=== PATIENT | male | born 1960 | race Caucasian/White ===

== ENCOUNTER 2017-10-30 12:21 | Inpatient (IN) | payer SELFPAY ==
[~2017-10-30 12:21] MED LIST: Heparin 1,000 UNITS/ML VIAL ONE
[2017-10-30 12:51] LABS: Base Excess-Venous -12.1 mmol/L (0 (+/- 2.5)); Bicarbonate (HCO3v) 15.3 mmol/L (1.0-85.0); CO2 Tension (PvCO2) 39.2 mmHg (41.0-51.0); Calcium, Ionized 0.69 mmol/L (1.12-1.32); Hemoglobin - Calc 12.4 g/dL (12.0-18.0); O2 Tension (PvO2) 50.7 mmHg (35.0-45.0); Potassium 5.6 mmol/L (3.4-4.7); T. Carbon Dioxide 16.5 mmol/L (1.0-85.0); pH (Venous) 7.198 (7.35-7.45); vO2 Saturation-calc 77.1 % (94-98)
[2017-10-30] MEDS ORDERED: Calcium Chloride 1 GM/10 ML Abboject SYRINGE ONE (12:56)
[2017-10-30 13:11] LABS: Hemoglobin 11.7 g/dL (14.0-18.0); Mean Corpuscular HGB CONC 33.1 g/dL (32.0-36.0); Mean Corpuscular Hemoglobin 31.1 pg (27.0-31.0); Mean Corpuscular Volume 94.1 fL (78.0-98.0); Mean Platelet Volume 6.8 fL (7.4-10.4); Platelet Count 349 thou/uL (130-400); Red Blood Cell (RBC) Count 3.75 mill/uL (4.70-6.10); White Blood Cell (WBC) Count 33.6 thou/uL (4.8-10.8)
[2017-10-30] MEDS ORDERED: Gentamicin Sulfate 360 MG in Sodium Chloride 0.9% 100 ML IVPB ONE (13:15)
[2017-10-30 13:24] LABS: ALT (SGPT) 107 U/L (8-55); AST (SGOT) 176 U/L (5-34); Albumin 3.1 g/dL (3.5-5.0); Alkaline Phosphatase 112 U/L (40-150); Anion Gap 29 mmol/L (10-20); BUN (Urea Nitrogen) 105 mg/dL (8.4-25.7); Bilirubin, Total 0.5 mg/dL (0.2-1.2); Calc. Creatinine Clearance 0 mL/min (70-130); Calcium 6.8 mg/dL (7.8-10.44); Carbon Dioxide 16 mmol/L (22-29); Chloride 104 mmol/L (98-107); Estimated GFR-MDRD 5; Globulin 3.5 g/dL (2.4-3.5); Glucose 76 mg/dL (70-105); Protein, Total 6.6 g/dL (6.0-8.3); Sodium 143 mmol/L (136-145)
[2017-10-30] MEDS ORDERED: cefTRIAXone\\ROCEPHIN 2 GM VIAL ONE (13:29)
[2017-10-30 13:39] LABS: Band 28 % (5-11); Lymphocytes 1 % (21-51); MDiff Complete? YES; Monocytes 4 % (0-10); Neutrophil 67 % (42-75); PLT Morphology Comment Appears Adequate
[2017-10-30 13:50] LABS: CK (CPK) 9286 U/L (30-200)
--- NOTE | 2017-10-30 14:03 | CON ---
DATE OF CONSULTATION: 10/30/2017 NEPHROLOGY CONSULTATION REASON FOR CONSULTATION: Hyperkalemia. HISTORY OF PRESENT ILLNESS: This is a 57-year-old gentleman who cannot give any history who presente d to the ER for altered mentation. The patient was noted to have potassium of 6.8 and I was consulte d, this was done at outside lab. The patient denies known headache, numbness, tingling, and weakness . Denies any chest pain. PAST MEDICAL HISTORY: Unavailable. ALLERGIES: No known drug allergies. REVIEW OF SYSTEMS: Unobtainable. PHYSICAL EXAMINATION: GENERAL: Patient is resting. VITAL SIGNS: Afebrile, pulse 100, breathing at 16, blood pressure 91/50. HEAD: Headache- NECK: No swelling or lumps. NOSE: No epistaxis or discharge. EYES: No diplopia or pain. RESPIRATORY: Dyspnea- CARDIOVASCULAR: Chest pain- GASTROINTESTINAL: Nausea- /INTERNAL CONTROL MANAGER: Hematuria- MUSCULOSKELETAL: No joint pain. NEUROPSYCHIATIC SYSTEMS: The patient has altered mentation. SKIN: Denies any rash or ulcer. CONSTITUTIONAL: No fever or chills. LABORATORY DATA: Pending. ASSESSMENT AND PLAN: 1. Acute kidney injury with hyperkalemia. We will plan dialysis. 2. Anemia. 3. History of methamphetamine as well as opiate abuse. Overall, prognosis is poor. 4. Sepsis. 5. Hypertension.
[2017-10-30 14:45] LABS: Troponin I 0.027 ng/mL (< 0.028)
[2017-10-30] MEDS ORDERED: Vancomycin HCl 1 GM in Premix Bag 1 BAG IVPB SCH (15:00)
--- NOTE | 2017-10-30 15:21 | CT ---
CT OF THE BRAIN WITHOUT CONTRAST: Date: 10/30/17 INDICATION: History of acute renal failure and altered mental status. COMPARISON: None. IMPRESSION: No acute intracranial abnormality. COMMENTS: No acute infarct, hemorrhage, or hydrocephalus is present. Septum pellucidum and third ventricle are midline. There is a small mucus retention cyst within the inferior aspect of the right maxillary sinu s. Mastoid air cells are clear. Skull is intact. POS: JASMYNE
[2017-10-30] MEDS ORDERED: Lorazepam 2 MG/ML VIAL ONE (15:31)
[2017-10-30 15:39] LABS: HBSAB Concentration 0.49 mIU/mL; HBSAg Index 0.29 S/CO (0-0.99); Hep B Core Total Ab Non-Reactive (NonReactive); Hep B Core Total Index 0.09 S/CO (0-0.79); Hep B Surf AB Non-Reactive (NonReactive); Hep B Surf Ag Non-Reactive S/CO (NonReactive)
[2017-10-30] MEDS: Haloperidol Lactate 5 MG/ML VIAL ONE (15:46)
[2017-10-30] MEDS ORDERED: Haloperidol Lactate 5 MG/ML VIAL IM SCH (16:00)
[2017-10-30] MEDS ORDERED: Lorazepam 2 MG/ML VIAL SLOW IVP SCH (16:00)
[2017-10-30] MEDS ORDERED: Haloperidol Lactate 5 MG/ML VIAL SLOW IVP SCH (16:00)
[2017-10-30 16:17] LABS: Hep C IgG Ab Reflex HepC Qnt (NonReactive)
[2017-10-30 16:18] LABS: Hep C Index 13.17 S/CO (0-0.79)
[2017-10-30] MEDS ORDERED: Sodium Chloride 0.9% 1,000 ML IV SCH ×2 (16:30→16:37)
[2017-10-30 16:39] LABS: INR-International Normal Ratio 1.3; PTT 40.4 SEC (22.9-36.1); Prothrombin Time 16.5 SEC (12.0-14.7)
[2017-10-30] MEDS: Nicotine 14 MG PATCH TD SCH (16:54)
[2017-10-30] MEDS: Sodium Chloride 0.9% 1,000 ML IV SCH ×3 (16:56→22:29)
--- NOTE | 2017-10-30 18:08 | PRG ---
DATE OF SERVICE: 10/30/2017 SUBJECTIVE: Mr. Canchola was evaluated again. He is comfortable now after Haldol and Ativan. I had a long discussion with his girlfriend. She is not aware of any drug use except Tylenol #3 which would account for the opiates reported on his drug screen. She says he has never used amphetamines and methamphetamines as far as she knows. She says he is only drinking 2 beers a day, but for the last 3 days has been confused. He has a history of being an extremely heavy drinker in the past. I would wonder if some of this is hepatic encephalopathy. He obviously has some rhabdomyolysis with this with some mild elevated liver enzymes. I suspect his creatinine will improve with hydration. We will check ammonia level and continue to care for him. He is currently being dialyzed. Critical care time is minutes. [facility]
[2017-10-30] MEDS ORDERED: Haloperidol Lactate 5 MG/ML VIAL IM PRN (18:10)
--- NOTE | 2017-10-30 18:36 | PDOC.FPRHP ---
- History of Present Illness Chief Complaint: found down, AMS History of Present Illness: Patient is a 57YOM with a PMH significant for HTN, EtOH abuse, and polysubstance abuse who was a transfer from the [place] ED after being found down in his home covered in diarrhea. ED Course: Given 2g of rocephin, 1 amp of calcium gluconate & 1L of NS. Nephro & gen surg were also consulted for emergency dialysis via temporary dialysis catheter. - Allergies/Adverse Reactions Allergies Allergy/AdvReac Type Severity Reaction Status Date / Time No Known Allergies Allergy Unverified 10/30/17 12:56 - Home Medications Medication Instructions Recorded Confirmed Type Acetaminophen W/ Codeine [Tylenol 1 tab PO Q6HR PRN 10/30/17 10/30/17 History #3] Gabapentin [Neurontin] 300 mg PO TID 10/30/17 10/30/17 History Ibuprofen [Motrin] 800 mg PO TID PRN 10/30/17 10/30/17 History Lisinopril 10 mg PO DAILY 10/30/17 10/30/17 History Omeprazole 20 mg PO DAILY 10/30/17 10/30/17 History - History PMHx: HTN, GERD PSHx: Unable to obtain 2/2 patient's AMS. FHx: Unable to obtain 2/2 patient's AMS. Social: h/o EtOH and polysubstance abuse per Dr. Avery per patient's family h/o tobacco abuse per chart review - Review of Systems ROS unobtainable: due to mental status - Vital signs BP: 80/63 HR: 95 RR: 22 Tmax: 98.5F Pox: 97% on RA Wt: 63kg - Physical Exam Constitutional: NAD, other (Awake but oriented to person only.) HEENT: normocephalic and atraumatic, PERRLA, EOMI, conjunctiva clear, grossly normal vision, grossly normal hearing, other (Poor dentition, dry mucous membranes, orpharynx significant for postnasal mucus/phlegm. No erythema or exudates.) Neck: FROM, trachea midline, no JVD Heart: RRR, normal S1/S2, no edema Lungs: CTAB, no respiratory distress, no rales/rhonchi, no wheezing Abdomen: soft, non-tender, bowel sounds present Musculoskeletal: normal structure, ROM grossly normal Neurological: no focal deficit, CN II-XII intact Skin: other (Poor turgor, no visible rash. Erythema overlying B/L knees.) Psychiatric: other (Psychomotor agitation during exam. Followed commands but did not always respond appropropriately to questioning. Poor recent and remote memory. Poor insight and judgement.) FMR H&P: Results - Labs Result Diagrams: 10/30/17 18:55 10/30/17 18:55 Lab results: WBC 33.6 thou/uL (4.8-10.8) H 10/30/17 12:51 Hgb 11.7 g/dL (14.0-18.0) L 10/30/17 12:51 Hct 35.3 % (42.0-52.0) L 10/30/17 12:51 MCV 94.1 fL (78.0-98.0) 10/30/17 12:51 Plt Count 349 thou/uL (130-400) 10/30/17 12:51 Band Neuts % (Manual) 28 % (5-11) H 10/30/17 12:51 VBG pCO2 39.2 mmHg (41.0-51.0) L 10/30/17 12:48 VBG pO2 50.7 mmHg (35.0-45.0) H 10/30/17 12:48 Sodium 143 mmol/L (136-145) 10/30/17 12:51 Potassium 6.0 mmol/L (3.5-5.1) H 10/30/17 12:51 Chloride 104 mmol/L (98-107) 10/30/17 12:51 Carbon Dioxide 16 mmol/L (22-29) L 10/30/17 12:51 BUN 105 mg/dL (8.4-25.7) H 10/30/17 12:51 Creatinine 11.60 mg/dL (0.6-1.3) H 10/30/17 12:51 Glucose 76 mg/dL (70-105) 10/30/17 12:51 Lactic Acid 0.9 mmol/L (0.5-2.2) 10/30/17 12:51 Calcium 6.8 mg/dL (7.8-10.44) L 10/30/17 12:51 Total Bilirubin 0.5 mg/dL (0.2-1.2) 10/30/17 12:51 AST 176 U/L (5-34) H 10/30/17 12:51 ALT 107 U/L (8-55) H 10/30/17 12:51 Alkaline Phosphatase 112 U/L (40-150) 10/30/17 12:51 Ammonia 34 umol/L (18-72) 10/30/17 17:52 Creatine Kinase 9286 U/L (30-200) H 10/30/17 12:51 Serum Total Protein 6.6 g/dL (6.0-8.3) 10/30/17 12:51 Albumin 3.1 g/dL (3.5-5.0) L 10/30/17 12:51 - Radiology Interpretation CT scan - head Status: image reviewed by me, report reviewed by me Additional comment: No acute IC process. FMR H&P: A/P - Problem List (1) Toxic metabolic encephalopathy Current Visit: Yes Status: Acute Code(s): G92 - TOXIC ENCEPHALOPATHY (2) Volume depletion Current Visit: Yes Status: Acute Priority: High Code(s): E86.9 - VOLUME DEPLETION, UNSPECIFIED (3) Rhabdomyolysis Current Visit: Yes Status: Acute Code(s): M62.82 - RHABDOMYOLYSIS (4) Acute renal failure Current Visit: Yes Status: Acute (5) Elevated LFTs Current Visit: Yes Status: Acute Code(s): R94.5 - ABNORMAL RESULTS OF LIVER FUNCTION STUDIES (6) History of alcohol abuse Current Visit: Yes Status: Chronic Code(s): Z87.898 - PERSONAL HISTORY OF OTHER SPECIFIED CONDITIONS (7) GERD (gastroesophageal reflux disease) Current Visit: Yes Status: Chronic Code(s): K21.9 - GASTRO-ESOPHAGEAL REFLUX DISEASE WITHOUT ESOPHAGITIS (8) HTN (hypertension) Current Visit: Yes Status: Chronic Code(s): I10 - ESSENTIAL (PRIMARY) HYPERTENSION (9) High anion gap metabolic acidosis Current Visit: Yes Status: Acute Code(s): E87.2 - ACIDOSIS (10) Leukocytosis Current Visit: Yes Status: Acute Code(s): D72.829 - ELEVATED WHITE BLOOD CELL COUNT, UNSPECIFIED (11) Anemia Current Visit: Yes Status: Acute Code(s): D64.9 - ANEMIA, UNSPECIFIED (12) Thrombocytopenia Current Visit: Yes Status: Acute Code(s): D69.6 - THROMBOCYTOPENIA, UNSPECIFIED (13) Hyperkalemia Current Visit: Yes Status: Acute Code(s): E87.5 - HYPERKALEMIA - Plan 57YOM w/ PMH significant for h/o ETOH & polysubstance abuse who was found down at home w/ AMS who was transferred from an outside ED after being found to be encephalopathic w/ ARF, presumed sepsis 2/2 UTI, & hyperkalemia. 1. Toxic metabolic encephalopathy: - Possibly 2/2 polysubstance overdose vs. uremia from acute renal failure vs. severe dehydration vs. sepsis from UTI - Ammonia 34 & BUN/Cr 105/11 upon arrival. K also elevated at 6.0. - Nephro and gen surg consulted in ED so patient could undergo emergency HD 2/2 ARF and EKG changes 2/2 hyperkalemia. - Hypovolemic w/ CK of 9286. - Aggressive fluid hydration started as patient is s/p 3L NS boluses and on MIVFs of NS at 200 ml/hr per turner off. Will continue. - Low suspicion for sepsis despite elevated WBC as lactate was WNL & patient has been afebrile since presentation. Procalcitonin pending. However, UA was + for 4+ bacteria. Will therefore continue renally dosed IV Zosyn. Blood & urine Cxs pending. CXR also pending. - UDS positive for opiates, meth, and amphetamines. - Alcohol level pending to r/o acute EtOH intoxication in conjunction with other substances. - Head CT w/o contrast ordered to r/o any IC process to explain AMS. - Currently sedated with precedex and haldol per pulmonlogy. - NPO pending speech evaluation and clearance. 2. Acute renal failure - BUN /Cr 105/11 on presentation to our ED. Higher in [place]. - Patient was given 3Ls NS. - Plan was for urgent dialysis per nephrology; however, patient was dialyzed for just 45 minutes as CK of 9286 suggestive of rhabdo likely 2/2 severe volume depletion. - Will continue with aggressive IVF hydration with NS at 200 mL/hr. - Will continue to trend CK & CMPs. - Nephrology on board; appreciate recs. 3. Rhabdomyolysis - CK of 9,286 on admission. Is therefore most likely source contributing to renal failure. - Will continue with aggressive IVFs as outlined above. - Will continue to trend CK to evaluate for improvement/resolution. 4. Severe volume depletion - Unsure how long patient was down. Per family, patient had not eaten or drank in the last 3 days. - Rhabdomyolysis supportive of extended period of decreased PO intake. - Will continue w/ aggressive IVF volume resuscitation as outlined above. - Will continue w/ QD BMPs & CKs to monitor hydration status. - Will monitor urine output as well. 5. AGMA - Likely 2/2 ARF as improved after IVFs were given. - Not likely 2/2 infection as lactate was WNL. - EtOH level pending to r/o acute EtOH intoxication as a potential source. - Will continue to follow QD CMPs. 6. Hyperkalemia: - Patient s/p 1 amp calcium bicarb & 45 minutes of HD. Also receiving aggressive IVF volume resuscitation. - K down to 6 from 6.8 at outside ED upon presentation. - Will continue to trend w/ BMPs. 7. Hx of EtOH abuse - EtOH levels pending. - IV Thiamine started by turner off, will continue. - ASE protocol ordered. - IV lorazepam ordered PRN. 8. Elevated LFTs - Hep C Ab positive. Hep C quant pending. - Therefore could be 2/2 Hep C vs. shock liver from severe volume depletion vs. h/o alcohol abuse. - Consider RUQ u/s for further evaluation as well as HIV & RPR testing. - Will get repeat AM CMP. 9. Leukocytosis - Could be 2/2 infection/sepsis vs. leukemoid reaction from stress of severe volume depletion. - Patient receiving IV zosyn to cover for possible infectious source (UTI). - CXR & procalcitonin pending. Lactate WNL. - WBC decreased to 24 from 33 since receiving IVFs. 10. Thrombocytopenia - Likely 2/2 chronic liver disease from hep C and/or EtOH abuse. - Will continue to monitor w/ QD CBCs. 11. Normocytic anemia - Likely anemia of chronic disease 2/2 liver disease. - Will continue to follow w/ QD CBCs. - Iron studies pending. - Consider B12 & folate levels as well to complete anemia workup. 12. HTN: - Holding antihypertensives as patient has been hypotensive since admission. - Will continue to monitor. 13. GERD: - Will consider starting on GI PPx with protonix. Dispo: Stable. Not currently intubated, but sedated on precedex and haldol for agitation. Marketing Administrative Assistant/pulmonolgy on board. DVT PPx: SCDs IVFs: NS @ 200mL/hr Abx: 2.25g IV zosyn Q8H (renally dosed) FMR H&P: Upper Level - Pertinent history 57 year old male with unknown PMH that presents with AMS. Patient was reportedly found down covered in diarrhea. Difficult to ascertain details leading up to event as patient is encephalopathic and unable to answer questions appropriately. Patient reportedly has history of chronic pain on opiates, alcohol abuse, GERD, and HTN. Patient was transferred from [place] ED where he was fluid resuscitated with 2L of NS and found to be in ARF. He was given Zosyn 3.375 mg, Vancomycin 1g, Gentamicin 5 mg/kg for presumed septic shock. He was also given sodium bicarb 50 meq, Calcium gluconate, D50 and insulin 10U due to potassium of 6.8 and peaked t waves on EKG at outside ED. Nephrology was consulted in the ED and plans were made for urgent dialysis. General surgery was consulted for catheter placement. ROS: Unable to obtain d/t mental status - Pertinent findings VS: BP 80/63, HR 93, RR 22, Temp 98.5 F, O2 sat 97% on RA General: Oriented to person only. Does not appear to be in any obvious distress at time of exam HEENT: Dry mucous membranes, no pharyngeal erythema, but some notable yellow, small, circular lesions on uvula and pharynx. Card: RRR Resp: No acute respiratory distress. Lung clear to auscultation Abdomen: Bowel sounds present, Non-tender to palpation Skin: Maculopapular rash on abdomen Neuro: Alert, oriented to person. No focal deficits. - Plan Date/Time: 10/30/17 101 I, [Celestina Mccloud DO], have evaluated this patient and agree with findings/ plan as outlined by internal wholesaler resident. Pertinent changes/additions are listed here. A/P: 57 year old found down at home presents with AMS 1. Toxic metabolic encephalopathy - Possibly 2/2 opiate overdose vs. uremia from acute renal failure vs. severe dehydration - Plan for urgent dialysis made in ED d/t acute renal failure and EKG changes noted from elevated potassium - Tunneled catheter placed by General surgery - Nephro consulted; appreciate recs - General surgery consulted; appreciate recs - Ammonia 34 - BUN 105, Cr 11 - Currently on precedex and haldol per pulmonlogy - Pulmonology consulted; appreciate recs - Hypovolemic and CK 9286; Aggressive fluid hydration, s/p 3L NS boluses on maintenance IVF at 200 ml/hr - UDS positive for opiates, meth, and amphetamines - Alcohol level pending - Procalcitonin pending; does not appear to be infectious etiology at this time. Leukocytosis likely leukamoid reaction, however patient is being covered with zosyn renally dosed until blood and urine cultures result. Possible UTI with 4+ bacteria. - Brain CT pending - NPO pending speech eval 2. Acute renal failure - BUN 105, Cr 11; higher at outside ED, s/p 3L NS boluses - Plan was for urgent dialysis per nephrology - CK 9286, indicating rhabdo likely 2/2 severe dehydration and patient being down for extended period of time. Will trend CK and aggressively hydrate with NS at 200 mL/hr - Monitor BMP - Nephrology consulted; appreciate recs - Renally dose medications 3. Hx of EtOH abuse - Thiamine daily - ASE protocol 4. Rhabdomyolysis - Likely contributing to renal failure - Aggressive fluids as above - CK in AM 5. Elevated LFT's - Hep C Ab positive; quant pending - Possibly 2/2 Hep C, decreased perfusion, and alcohol abuse - Consider RUQ u/s for further evaluation - AM CMP 6. Leukocytosis - Infection vs. leukamoid reaction - Patient receiving zosyn (s/p 1 dose of vanc, ceftriaxone) - Procalcitonin pending - CXR negative - LA negative 7. Severe volume depletion - Likely patient was down for extended period of time - Rhabdomyolysis - Aggressive fluids as above - s/p 3L NS boluses 8. Anion gap metabolic acidosis likely 2/2 acute renal failure - Improved after fluids - LA nml - Pending alcohol level; although drawn after 2L NS - Likely 2/2 acute renal failure 9. Thrombocytopenia - Monitor with CBC - Likely 2/2 liver disease 10. Anemia - Likely 2/2 liver disease - Will repeat CBC AM - Iron studies in AM Dispo: Stable. Not currently intubated, but on precedex and haldol for agitation. Continue current management. Anticipate LOS >48 hours. Attending Addendum - Attending Addendum Date/Time: 10/30/172122 I personally evaluated the patient at 1315 and discussed the management with Dr. Manzano/Rogers. H&P repeated by me. I agree with the History, Examination, Assessment and Plan documented above with any addition or exceptions noted below. Mr Canchola is a 57 yo WM with chronic pain on tylenol #3 who was found down. Down for an unknown amount of time and covered in diarrhea. Was transferred to [place] ER and found to have Cr of >12 and hyperkalemia with peaked T waves. Given bicarb, insulin/glucose and transferred to [facility] for higher level of care. 2 L NS bolus. At the time of my exam he awakens and is A&Ox2 but quickly goes back to sleep. He had dialysis catheter placed in ER and is about to be transferred to ICU for emergent dialysis. BP 110s/60s, HR 100, O2 sat 98% 2LNC Mouth- dry mucous membranes Lungs: ctab Heart: mild tachycardia, no m,g,r Abd: soft, nt/nd +bs Ext: no c/c/e Neuro: no focal deficits Labs, imaging and EKG personally reviewed by me. 1) Acute renal failure 2) Metabolic/Uremic Encephalopathy 3) Anion-gap metabolic acidosis 4) Sepsis with UTI 5) Hyperkalemia 6) Polysubstance Abuse Admit to ICU for emergent dialysis. IV Zosyn, renally dosed. Serial labs to ensure improvement of acidosis, hyperkalemia. CT head. Trend troponins. Appreciate nephro and critical care input.
[2017-10-30 19:33] LABS: Band 11 % (5-11); Hemoglobin 10.7 g/dL (14.0-18.0); Lymphocytes 2 % (21-51); MDiff Complete? YES; Mean Corpuscular HGB CONC 32.1 g/dL (32.0-36.0); Mean Corpuscular Hemoglobin 30.5 pg (27.0-31.0); Monocytes 2 % (0-10); Neutrophil 85 % (42-75); PLT Morphology Comment Appears Adequate; Platelet Count 274 thou/uL (130-400); RBC Distribution Width 13.1 % (11.5-14.5); Red Blood Cell (RBC) Count 3.52 mill/uL (4.70-6.10); White Blood Cell (WBC) Count 24.1 thou/uL (4.8-10.8)
[2017-10-30 19:39] LABS: Anion Gap 19 mmol/L (10-20); BUN (Urea Nitrogen) 43 mg/dL (8.4-25.7); Calc. Creatinine Clearance 15 mL/min (70-130); Calcium 7.4 mg/dL (7.8-10.44); Carbon Dioxide 20 mmol/L (22-29); Chloride 106 mmol/L (98-107); Estimated GFR-MDRD 13; Glucose 82 mg/dL (70-105); Sodium 141 mmol/L (136-145)
[2017-10-30 19:53] LABS: Cocaine Metabolite Screen Not Detected (NotDetected); Medtox Reader # READER 1; Methamphetamine Detected (NotDetected); Phencyclidine (PCP) Not Detected (NotDetected); THC/Cannabinoid Screen Not Detected (NotDetected)
[2017-10-30 19:54] LABS: Amphetamine Detected (NotDetected); Barbiturates Screen Not Detected (NotDetected); Benzodiazepine Screen Not Detected (NotDetected); Medtox Control Line Valid? VALID (VALID); Methadone Not Detected (NotDetected); Opiate Screen Detected (NotDetected); Oxycodone Screen Not Detected (NotDetected); Tricyclic Screen Not Detected (NotDetected)
--- NOTE | 2017-10-30 20:53 | PDOC.OP ---
Operative Note - Operative Note Operative Note: PROCEDURE: Right femoral hemodialysis catheter placement with ultrasound guidance DATE OF PROCEDURE: 10/30/2017 SURGEON: Curtis Herron M.D. PREOPERATIVE DIAGNOSES: Renal failure POSTOPERATIVE DIAGNOSIS: Renal failure HISTORY: Patient with renal failure and hyperkalemia who requires access for immediate dialysis. PROCEDURE IN DETAIL: After verbal consent was obtained, with agreement from primary care, nephrology, and ER MD on the emergent nature of procedure, and an ultrasound was used to confirm presence of a patent compressible femoral vein, the groin was prepped and draped in standard sterile fashion. Local anesthesia was infused over the femoral vein which was accessed under direct ultrasound guidance with excellent flow of dark venous nonpulsatile blood. Ultrasound was used to confirm the presence of the wire within the patent compressible femoral vein. A skin incision was made and the tract was serially dilated over the wire. The dialysis catheter was placed over the wire and secured to the skin with sutures. All ports easily aspirated and easily flushed without resistance. An antimicrobial dressing was placed. The patient tolerated the procedure well. Estimated blood loss was minimal. There were no complications. There were no specimens.
--- NOTE | 2017-10-30 21:03 | RAD ---
RADIOGRAPH CHEST 1 VIEW: Date: 10-30-17 Time: 7:54 a.m. HISTORY: 57-year-old male with sepsis. COMPARISON: None available. FINDINGS: This is a supine image, which would be insensitive for pneumothorax detection. The patient is rotated to the left. In the medial aspect of the right upper lung zone, there is an ill-defined, approximate ly 4 x 3 cm faint opacity. The rest of the visualized lung valentino are clear. No cardiomegaly. No pulm onary edema. Lateral costophrenic angles are sharp. IMPRESSION: 1. Ill-defined density overlying the right upper lobe. This is questionable for artifact. Follow up i s recommended. 2. The rest of the lungs are clear. AFSHAN POS: JASMYNE
[2017-10-30] MEDS ORDERED: Norepinephrine 8 MG/0.9% NS 250 ML ONE (21:48)
[2017-10-30] MEDS: Piperacillin/Tazobactam 2.25 GM in Sodium Chloride 0.9% 100 ML IVPB SCH (22:35)
--- NOTE | 2017-10-31 00:44 | CON ---
DATE OF SERVICE: 10/30/2017 SUBJECTIVE: Grant Canchola is a 57-year-old male. According to family, who presented after I examined him, he is a heavy drinker. Apparently, he had not had anything to drink or eat for 3 days. He was delivered to the emergency room confused and actually initially combative. He has received Ativan and Haldol and is improved. I evaluated him in the emergency room. He has a history of using drugs in the past. His family says they are not aware of him using drugs recently. I was told by the political anthropologist that there were amphetamines on a drug screen, but I cannot find a drug screen in the medical record, so I have ordered this. He had a head CT in the emergency room which shows no structural abnormalities. He reportedly had potassium of 6.8 at an outside lab. He has had potassium of 6. Her last blood draws here. He has a dialysis catheter now in place and will receive dialysis. PAST MEDICAL HISTORY: Otherwise unknown. FAMILY HISTORY: Unknown. SOCIAL HISTORY: Unknown. REVIEW OF SYSTEMS: Not obtainable. PHYSICAL EXAMINATION: VITAL SIGNS: Heart rate is 100, blood pressures in the 90s, respiratory rate in the teens. GENERAL APPEARANCE: He is in no distress, but he is agitated. HEENT: Pupils are equal. Sclerae is anicteric. NECK: Supple. LUNGS: Clear. HEART: Regular rhythm. ABDOMEN: Soft and nontender. EXTREMITIES: asymmetry. Moves all extremities equally. LABORATORY DATA: White count 33.6, hemoglobin 11.7, platelets 349. Sodium 143 , potassium 6, chloride 104, bicarbonate 16, BUN 105, creatinine 11.6, CK is 9286, albumin 3.1. IMPRESSION: 1. Probable alcohol withdrawal. 2. Severe intravascular volume depletion. 3. Encephalopathy secondary to alcohol withdrawal. 4.? drug use. Drug screen will be repeated. I suspect his renal function will return to normal. 5. Elevated liver enzymes. 6. Rhabdomyolysis. 7. Hypoalbuminemia. Coags have been done either with his history of heavy alcohol use, these should be done. I will follow with the other physician's caring for him and he is now comfortable with Haldol, Ativan and Precedex is available if we needed. Critical care time is minutes. [facility]
[2017-10-31] MEDS: Sodium Chloride 0.9% 1,000 ML IV SCH ×2 (00:56→21:36)
[2017-10-31] MEDS ORDERED: Norepinephrine 8 MG/250 ML BAG IVPB PRN (01:11)
[2017-10-31] MEDS ORDERED: Sodium Chloride 0.9% 1,000 ML IV SCH (05:31)
[2017-10-31] MEDS: Piperacillin/Tazobactam 2.25 GM in Sodium Chloride 0.9% 100 ML IVPB SCH ×3 (05:56→21:36)
[2017-10-31 06:07] LABS: Anion Gap 25 mmol/L (10-20); BUN (Urea Nitrogen) 50 mg/dL (8.4-25.7); Calc. Creatinine Clearance 11 mL/min (70-130); Calcium 7.1 mg/dL (7.8-10.44); Carbon Dioxide 15 mmol/L (22-29); Chloride 110 mmol/L (98-107); Estimated GFR-MDRD 9; Glucose 86 mg/dL (70-105); Potassium 4.8 mmol/L (3.5-5.1); Sodium 145 mmol/L (136-145)
[2017-10-31 06:20] LABS: CK (CPK) 4349 U/L (30-200)
[2017-10-31 06:22] LABS: HIV (1/2) Antibody/Antigen Non-Reactive (NonReactive); HIV 1/2 INDEX 0.11 S/CO (<1.00); Syphilis Antibody Nonreactive (Nonreactive); Syphilis Antibody Index 0.07 S/CO (<1.00 Non-Reactive)
[2017-10-31 07:27] LABS: Band 35 % (5-11); Hemoglobin 11.6 g/dL (14.0-18.0); Lymphocytes 8 % (21-51); MDiff Complete? YES; Mean Corpuscular Hemoglobin 31.7 pg (27.0-31.0); Mean Corpuscular Volume 96.2 fL (78.0-98.0); Mean Platelet Volume 6.8 fL (7.4-10.4); Monocytes 4 % (0-10); Neutrophil 53 % (42-75); Platelet Count 313 thou/uL (130-400); RBC Distribution Width 13.2 % (11.5-14.5); Red Blood Cell (RBC) Count 3.67 mill/uL (4.70-6.10); White Blood Cell (WBC) Count 24.2 thou/uL (4.8-10.8)
[2017-10-31] MEDS ORDERED: Prevnar 13-Val Conj/PF 0.5 ML SYRINGE IM ONE (09:00)
--- NOTE | 2017-10-31 09:11 | PDOC.FM ---
- Subjective Subjective: Patient doing well this AM. He is confused and drowsy with GCS of 13, but on Precedex for sedation. Unable to obtain a good history from him due to his sedation, but the patient does know his name and that he is in a hospital. He denies any drug use. He denies abdominal pain, fevers, cough. - Objective MAR Reviewed: Yes Vital Signs & Weight: Vital Signs (12 hours) Temp Pulse Resp Pulse Ox 10/31/17 07:07 98.2 F 80 13 100 10/31/17 07:00 98.2 F 10/31/17 04:00 98.8 F 10/31/17 00:00 98.7 F Weight Weight 63 kg Most Recent Monitor Data Heart Rate from ECG 85 NIBP 104/56 NIBP BP-Mean 75 Respiration from ECG 13 SpO2 100 I&O: 10/30/17 10/31/17 11/01/17 06:59 06:59 06:59 Intake Total 4149.7 Output Total 200 10 Balance 3949.7 -10 Result Diagrams: 10/31/17 05:25 10/31/17 05:25 Radiology Reviewed by me: Yes (CXR - ill defined density overlying RUL - questionable artifact) <Vania Robles - Last Filed: 10/31/17 09:08> - Objective Vital Signs & Weight: Vital Signs (12 hours) Temp Pulse Resp Pulse Ox 10/31/17 11:00 97.9 F 10/31/17 07:07 98.2 F 80 13 100 10/31/17 07:00 98.2 F 10/31/17 04:00 98.8 F Weight Admit Weight 63.049 kg Weight 63 kg Most Recent Monitor Data Heart Rate from ECG 77 NIBP 95/55 NIBP BP-Mean 71 Respiration from ECG 16 SpO2 100 I&O: 10/30/17 10/31/17 11/01/17 06:59 06:59 06:59 Intake Total 4149.7 45 Output Total 200 15 Balance 3949.7 30 Result Diagrams: 10/31/17 05:25 10/31/17 05:25 <Francois Mathis - Last Filed: 10/31/17 12:50> Phys Exam - Physical Examination Constitutional: NAD drowsy, on sedation HEENT: PERRLA, moist MMs Respiratory: no wheezing, no rales, no rhonchi, clear to auscultation bilateral Cardiovascular: RRR, no significant murmur, no rub Gastrointestinal: soft, non-tender, no distention, positive bowel sounds Musculoskeletal: no edema, pulses present Psychiatric: normal affect Deviation from normal: A&O to person and place Skin: normal turgor, cap refill <2 seconds <Vania Robles - Last Filed: 10/31/17 09:08> Dx/Plan (1) Rhabdomyolysis Code(s): M62.82 - RHABDOMYOLYSIS Status: Acute Qualifiers: Rhabdomyolysis type: non-traumatic Qualified Code(s): M62.82 - Rhabdomyolysis (2) Toxic metabolic encephalopathy Code(s): G92 - TOXIC ENCEPHALOPATHY Status: Acute (3) Acute renal failure Status: Acute (4) UTI (urinary tract infection) Status: Acute Qualifiers: Urinary tract infection type: acute cystitis (5) Elevated LFTs Code(s): R94.5 - ABNORMAL RESULTS OF LIVER FUNCTION STUDIES Status: Acute (6) High anion gap metabolic acidosis Code(s): E87.2 - ACIDOSIS Status: Acute (7) Hyperkalemia Code(s): E87.5 - HYPERKALEMIA Status: Resolved (8) HTN (hypertension) Code(s): I10 - ESSENTIAL (PRIMARY) HYPERTENSION Status: Chronic Qualifiers: Hypertension type: essential hypertension Qualified Code(s): I10 - Essential (primary) hypertension (9) History of alcohol abuse Code(s): Z87.898 - PERSONAL HISTORY OF OTHER SPECIFIED CONDITIONS Status: Chronic (10) Drug abuse Code(s): F19.10 - OTHER PSYCHOACTIVE SUBSTANCE ABUSE, UNCOMPLICATED Status: Acute - Plan Plan: Toxic metabolic encephalopathy Possibly 2/2 opioid/meth abuse vs. uremia from acute renal failure vs. sepsis from UTI. Ammonia 34 & BUN/Cr 105/11 upon arrival. Nephro and gen surg consulted in ED so patient could undergo emergency HD 2/2 ARF and EKG changes 2/ 2 hyperkalemia. Pt received 45 min HD on 10/30. s/p 3L NS boluses due to severe dehydration and rhabdo. UA was + for 4+ bacteria and procalcitonin elevated at 13. Head CT negative. - Dr. Avery with Pulm consulted, appreciate recs - Dr. Bradford with Nephro on board, appreciate recs - Zosyn day 2 - Blood Cx, Urine Cx - Currently sedated with precedex and haldol per pulmonlogy. - NPO pending speech evaluation and clearance. Acute renal failure BUN /Cr 100/12.8 initially, has improved to 50/6.32 s/p 45 min HD and aggressive fluid resuscitation. UOP has been low at 5-10 mL/hr - NS @ 175 - Will continue to trend CK & CMPs. - Nephrology on board; appreciate recs. Rhabdomyolysis - CK of 9,286 on admission. Is therefore most likely source contributing to renal failure. Improved to 4349 this AM. - Will continue with aggressive IVFs as outlined above. - Will continue to trend CK to evaluate for improvement/resolution. Severe Volume Depletion Unsure how long patient was down. Per family, patient had not eaten or drank in the last 3 days. Patient now requiring pressors after starting sedation as well. UOP has been low at 5-10 mL/hr - Will continue w/ aggressive IVF volume resuscitation as outlined above. - Will continue w/ QD BMPs & CKs to monitor hydration status. - Will monitor urine output as well. Hyperkalemia - Patient s/p 1 amp calcium bicarb & 45 minutes of HD. Also receiving aggressive IVF volume resuscitation. - K down to 6 from 6.8 at outside ED upon presentation. - Will continue to trend w/ BMPs. Hx of EtOH abuse EtOH levels negative - IV Thiamine - ASE protocol - IV lorazepam ordered PRN. 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 Hep C quant pending. HIV negative. - Consider RUQ u/s for further evaluation - RPR pending Leukocytosis Could be 2/2 infection/sepsis vs. leukemoid reaction from stress of severe volume depletion. Patient does have left shift with bandemia. Lactate WNL. procalcitonin elevated. - Patient receiving IV zosyn to cover for possible infectious source (UTI). - Will repeat CXR as showed ill defined density overlying RUL - questionable artifact. Normocytic anemia Likely anemia of chronic disease 2/2 liver disease. - Monitor - Consider B12 & folate levels as well to complete anemia workup. HTN - Holding antihypertensives as patient has been hypotensive since admission. - Will continue to monitor. GERD - IV protonix, will switch to PO once tolerating PO DVT PPx: Heparin GI PPx: Protonix IVFs: NS @ 175mL/hr Abx: 2.25g IV zosyn Q8H (renally dosed) Lines/Tubes: Kwok day 2, R femoral temporary trialysis catheter day 2 <Vania Robles - Last Filed: 10/31/17 09:08> Attending Addendum - Attending Addendum Date/Time: 10/31/17 1247 I personally evaluated the patient and discussed the management with Dr. Robles. I agree with and repeated the History, Examination, Assessment and Plan documented above with any addition or exceptions noted below. Pt noncomittal about substance ingestions. He does tell me that he took quite a bit of ibuprofen because of lower abdominal pain, but overall he remains a poor informant. Continue antibiotics, await sensitivities Hydration/dialysis; consider change in IVF Routing mgmt for ETOH abuse Closely monitor <Francois Mathis - Last Filed: 10/31/17 12:50>
--- NOTE | 2017-10-31 09:59 | PRG ---
DATE OF SERVICE: 10/31/2017 SUBJECTIVE: The patient is seen in the CCU. He is awake. He is alert. He is oriented to place, bu t not to date. He is currently on a Precedex drip, but his level of agitation has improved compared to yesterday. He is now off the Levophed drip. PHYSICAL EXAMINATION: VITAL SIGNS: His temperature is 98.2, pulse 85, blood pressure 104/56, O2 saturation 100%, 24-hour i ntake 4149, output 200. HEENT: Unremarkable. NECK: No JVD. CHEST: Clear without wheeze or rhonchi. CARDIAC: S1 and S2 regular. ABDOMEN: Soft. EXTREMITIES: No edema. LABORATORY DATA: White blood cell count 24.2, hematocrit 35.3, platelet count 313. Sodium 145, pota ssium 4.8, chloride 110, CO2 of 15, BUN 50, creatinine 6.3, glucose 86. CPK 4349. Micro shows no growth to date. ASSESSMENT: 1. Rhabdomyolysis. 2. Suspected drug abuse. 3. Acute renal failure. 4. Severe dehydration. PLAN: The patient was dialyzed yesterday. He does not look like much needs to be done other than ul trafiltration of blood. His labs are better for the most part, but he is developing a hyperchloremic metabolic acidosis. He needs to remain in the ICU for now given his level of agitation. If his 48- hour cultures returned negative, then we would consider stopping the antibiotics. I changed him to h jerry normal saline.
[2017-10-31] MEDS ORDERED: Heparin 10,000 UNITS/ 10 ML VIAL ONE (10:00)
[2017-10-31] MEDS: Pantoprazole 40 MG VIAL IVP SCH (10:07)
[2017-10-31] MEDS: SODIUM BICARBONATE IV SCH ×2 (11:09→17:43)
[2017-10-31] MEDS: SODIUM CHLORIDE 0.45% IV SCH ×2 (11:09→17:43)
--- NOTE | 2017-10-31 11:33 | RAD ---
AP VIEW OF THE CHEST: INDICATION: Followup pneumonia. FINDINGS: No consolidation is grossly evident. Opacity within the right upper lobe may reflect a confluence of vessels. No definite opacity is noted within this location. No pleural effusion is grossly evident . The right costophrenic angle is excluded. No pneumothorax is evident. IMPRESSION: Opacity seen within the right upper lobe on the comparison dated 10/30/17 may reflect a confluence of s hadows. No definite opacity is noted within this location on the current examination. POS: JASMYNE
--- NOTE | 2017-10-31 11:44 | PRG ---
DATE OF SERVICE: 10/31/2017 SUBJECTIVE: This is a 57-year-old gentleman being seen for acute kidney injury. The patient denies any nausea, vomiting or chest pain. PHYSICAL EXAMINATION: GENERAL: Patient is awake, alert. VITAL SIGNS: Afebrile, pulse 85, breathing at 16, blood pressure 104/56. OBJECTIVE: See above. Awake, alert, in no acute distress. GENERAL APPEARANCE AND MENTAL STATUS: Fair. HEAD/NECK: Normocephalic. Atraumatic. EYES: EOMI. No deformity. EARS: Clear. No ulcers. NOSE: Intact. No lesions. MOUTH: Clear. No discharge. THROAT: Clear. No exudate. LUNGS: Clear. No crackles. CARDIAC: S1, S2. No rub. ABDOMEN: Benign. BS+. GENITALIA/RECTUM: Kwok absent. BACK/EXTREMITIES: Edema 0+ Ulcer- NEUROLOGICAL: Alert and motor intact. SKIN: Rash- Bruise- LYMPHATICS: Edema- Ulcer- LABORATORY: Hemoglobin 11.6, bicarbonate 15, potassium 4.8. ASSESSMENT AND RECOMMENDATIONS: 1. Hypokalemia, improved. 2. Metabolic acidosis. Plan dialysis. 3. Anemia, stable. The patient remains anuric.
[2017-10-31] MEDS: Nicotine 14 MG PATCH TD SCH (14:27)
[2017-10-31] MEDS: Heparin 5,000 UNITS/ML VIAL SC SCH (21:35)
[2017-11-01] MEDS: Ondansetron HCl/PF 4 MG/2 ML Vial IVP PRN ×2 (01:20→13:52)
[2017-11-01 05:11] LABS: Anion Gap 20 mmol/L (10-20); BUN (Urea Nitrogen) 37 mg/dL (8.4-25.7); CK (CPK) 1348 U/L (30-200); Calc. Creatinine Clearance 15 mL/min (70-130); Calcium 7.8 mg/dL (7.8-10.44); Carbon Dioxide 18 mmol/L (22-29); Chloride 107 mmol/L (98-107); Estimated GFR-MDRD 13; Glucose 89 mg/dL (70-105); Potassium 3.9 mmol/L (3.5-5.1); Sodium 141 mmol/L (136-145)
[2017-11-01 05:22] LABS: Band 40 % (5-11); Hemoglobin 10.3 g/dL (14.0-18.0); Lymphocytes 2 % (21-51); MDiff Complete? YES; Mean Corpuscular HGB CONC 33.2 g/dL (32.0-36.0); Mean Corpuscular Hemoglobin 31.7 pg (27.0-31.0); Mean Corpuscular Volume 95.4 fL (78.0-98.0); Mean Platelet Volume 6.7 fL (7.4-10.4); Metamyelocyte 1 % (0-0); Monocytes 6 % (0-10); Neutrophil 51 % (42-75); Platelet Count 294 thou/uL (130-400); RBC Distribution Width 13.1 % (11.5-14.5); Red Blood Cell (RBC) Count 3.26 mill/uL (4.70-6.10); White Blood Cell (WBC) Count 17.6 thou/uL (4.8-10.8)
[2017-11-01] MEDS: Piperacillin/Tazobactam 2.25 GM in Sodium Chloride 0.9% 100 ML IVPB SCH ×3 (05:50→22:05)
--- NOTE | 2017-11-01 07:38 | PDOC.FM ---
- Subjective Subjective: Patient much more awake this AM, off sedation. He reports that his rectum hurts and his abdomen hurts. He says that the abdominal pain is everywhere, and doesn' t change when he eats. He has a rectal tube in place. He denies any nausea/ vomiting. He denies SOB, chest pain, fevers, chills. - Objective MAR Reviewed: Yes Vital Signs & Weight: Vital Signs (12 hours) Temp Pulse Ox 11/01/17 05:00 98.7 F 11/01/17 00:42 100 10/31/17 23:00 98.6 F Weight Admit Weight 63.049 kg Weight 63 kg Most Recent Monitor Data Heart Rate from ECG 82 NIBP 131/72 NIBP BP-Mean 82 Respiration from ECG 16 SpO2 98 I&O: 10/31/17 11/01/17 11/02/17 06:59 06:59 06:59 Intake Total 4149.7 3796.8 Output Total 200 552 Balance 3949.7 3244.8 Result Diagrams: 11/01/17 04:19 11/01/17 04:19 <Vania Robles - Last Filed: 11/01/17 07:36> - Objective Vital Signs & Weight: Vital Signs (12 hours) Temp Pulse Ox 11/01/17 08:00 98.9 F 11/01/17 05:00 98.7 F 11/01/17 00:42 100 Weight Admit Weight 63.049 kg Weight 63 kg Most Recent Monitor Data Heart Rate from ECG 56 NIBP 115/64 NIBP BP-Mean 74 Respiration from ECG 21 SpO2 93 I&O: 10/31/17 11/01/17 11/02/17 06:59 06:59 06:59 Intake Total 4149.7 3796.8 Output Total 200 552 10 Balance 3949.7 3244.8 -10 Result Diagrams: 11/01/17 04:19 11/01/17 04:19 <Francois Mathis - Last Filed: 11/01/17 11:21> Phys Exam - Physical Examination Constitutional: NAD HEENT: PERRLA, moist MMs Respiratory: no wheezing, no rales, no rhonchi, clear to auscultation bilateral Cardiovascular: RRR, no significant murmur, no rub Gastrointestinal: soft, positive bowel sounds voluntary guarding, TTP diffusely, no rebound tenderness Musculoskeletal: no edema, pulses present Neurological: non-focal, moves all 4 limbs Psychiatric: normal affect Deviation from normal: A&O to person and place, thinks its Oct 2021 and Jaspal is president Skin: normal turgor, cap refill <2 seconds <Vania Robles - Last Filed: 11/01/17 07:36> Dx/Plan (1) Toxic metabolic encephalopathy Code(s): G92 - TOXIC ENCEPHALOPATHY Status: Acute (2) Rhabdomyolysis Code(s): M62.82 - RHABDOMYOLYSIS Status: Acute Qualifiers: Rhabdomyolysis type: non-traumatic Qualified Code(s): M62.82 - Rhabdomyolysis (3) Acute renal failure Status: Acute Qualifiers: Acute renal failure type: unspecified Qualified Code(s): N17.9 - Acute kidney failure, unspecified (4) UTI (urinary tract infection) Status: Acute Qualifiers: Urinary tract infection type: acute cystitis (5) Elevated LFTs Code(s): R94.5 - ABNORMAL RESULTS OF LIVER FUNCTION STUDIES Status: Acute (6) High anion gap metabolic acidosis Code(s): E87.2 - ACIDOSIS Status: Acute (7) Hyperkalemia Code(s): E87.5 - HYPERKALEMIA Status: Resolved (8) HTN (hypertension) Code(s): I10 - ESSENTIAL (PRIMARY) HYPERTENSION Status: Chronic Qualifiers: Hypertension type: essential hypertension Qualified Code(s): I10 - Essential (primary) hypertension (9) History of alcohol abuse Code(s): Z87.898 - PERSONAL HISTORY OF OTHER SPECIFIED CONDITIONS Status: Chronic (10) Drug abuse Code(s): F19.10 - OTHER PSYCHOACTIVE SUBSTANCE ABUSE, UNCOMPLICATED Status: Acute (11) Sacral decubitus ulcer Code(s): L89.159 - PRESSURE ULCER OF SACRAL REGION, UNSPECIFIED STAGE Status: Acute - Plan Plan: Toxic metabolic encephalopathy Possibly 2/2 opioid/meth abuse vs. uremia from acute renal failure vs. less likely sepsis from UTI. Ammonia 34 & BUN/Cr 105/11 upon arrival. Nephro and gen surg consulted in ED so patient could undergo emergency HD 2/2 ARF and EKG changes 2/2 hyperkalemia. Pt received 45 min HD on 10/30. s/p 3L NS boluses due to severe dehydration and rhabdo. UA has grown E. coli. Procalcitonin initially elevated at 13. Head CT negative. - Dr. Avery with Pulm consulted, appreciate recs - Dr. Bradford with Nephro on board, appreciate recs - Zosyn day 3 - No longer requiring sedation as agitation has improved Acute renal failure BUN /Cr 100/12.8 initially, has improved to 37/4.75 s/p HD on day of admission and last night as well as aggressive fluid resuscitation. UOP has been low at ~5 mL/hr - NS @ 75 - Will continue to trend CK & CMPs. - Nephrology on board, appreciate recs. Rhabdomyolysis CK of 9,286 on admission. Likely contributing to renal failure. Improved to 1348 this AM. - Will continue with IVFs and dialysis per nephrology - Will continue to trend CK to evaluate for improvement/resolution. UTI Pt initially had leukocytosis with elevated bands, tachycardia, and was found to have E. coli UTI. UCx has grown E. coli that is pansensitive. Procalcitonin was initially elevated to 13 and has trended down to 11. - Zosyn day 3 - Kwok in place for strict I/O's - NS @ 75 Severe Volume Depletion Unsure how long patient was down. Per family, patient had not eaten or drank in the last 3 days. Patient required pressors on his first night of hospitalization , but has been off pressors since then. UOP has been low at 5 mL/hr - Will continue w/ IVF volume resuscitation as outlined above. - Will continue w/ BMPs & CKs to monitor hydration status. - Will monitor urine output Hyperkalemia, resolved K initially 6.8 with peaked T waves on EKG. Patient s/p Calcium gluconate, sodium bicarb, insulin/D50 & HD. Potassium now WNL. - Will continue to trend w/ BMPs. Hx of EtOH abuse EtOH levels negative - IV Thiamine, PO folic acid - ASE protocol - IV lorazepam ordered PRN. Hx of Polysubstance abuse Pt positive for opioids, meth, and amphetamines on UDS. Pt denies any methampetamine use. Reports taking tylenol #3 for chronic joint pain. 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 Hep C quant pending. HIV negative, RPR negative - Consider RUQ u/s for further evaluation Leukocytosis Downtrending. Could be 2/2 infection/sepsis vs. leukemoid reaction from stress of severe volume depletion. Patient does have left shift with bandemia. Lactate WNL. procalcitonin elevated. - Continue Zosyn - Consider stool studies as pt having significant diarrhea since admission - Consider RUQ US due to elevated LFT's Normocytic anemia Likely anemia of chronic disease 2/2 liver disease. - Monitor - Check B12 & folate HTN - Holding antihypertensives as patient has been mildly hypotensive since admission. - Will continue to monitor. GERD - IV protonix, will switch to PO once tolerating PO DVT PPx: Heparin GI PPx: Protonix IVFs: NS @ 75mL/hr Abx: 2.25g IV zosyn Q8H (renally dosed) Lines/Tubes: Kwok day 3, R femoral temporary trialysis catheter day 3, Rectal tube day 2 <Vania Robles - Last Filed: 11/01/17 07:36> Attending Addendum - Attending Addendum Date/Time: 11/01/17 1120 I personally evaluated the patient and discussed the management with Dr. Robles. I agree with and repeated the History, Examination, Assessment and Plan documented above with any addition or exceptions noted below. Still a bit confused but more lucid this AM. Denies taking any more than a couple ibuprofen and tylenol with codeiene. Is c/o abd pain but points to RUQ when asked. Says he has n/v and abd pain the day before being admitted. Continue antibiotics. Plan for RUQ sono; ddx wide including biliary pathology. May need to consider additional imaging. <Francois Mathis - Last Filed: 11/01/17 11:21>
[2017-11-01 08:02] LABS: ALT (SGPT) 76 U/L (8-55); AST (SGOT) 79 U/L (5-34); Albumin 2.3 g/dL (3.5-5.0); Alkaline Phosphatase 114 U/L (40-150); Bilirubin, Direct 0.4 mg/dL (0.1-0.3); Bilirubin, Total 0.7 mg/dL (0.2-1.2)
[2017-11-01] MEDS: Heparin 5,000 UNITS/ML VIAL SC SCH ×2 (10:01→22:05)
[2017-11-01] MEDS: Folic Acid 1 MG TAB PO SCH (10:01)
[2017-11-01] MEDS: Pantoprazole 40 MG VIAL IVP SCH (10:01)
[2017-11-01] MEDS: Sodium Chloride 0.9% 1,000 ML IV SCH (11:55)
--- NOTE | 2017-11-01 12:41 | PRG ---
DATE OF SERVICE: 11/01/2017 SUBJECTIVE: This is a 57-year-old gentleman being seen for acute kidney injury which is dialysis dep endent. The patient remains anuric. PHYSICAL EXAMINATION: GENERAL: Patient is resting. VITAL SIGNS: Afebrile, pulse 56, breathing 16, blood pressure 115/64. OBJECTIVE: See above. Awake, alert, in no acute distress. GENERAL APPEARANCE AND MENTAL STATUS: Fair. HEAD/NECK: Normocephalic. Atraumatic. EYES: EOMI. No deformity. EARS: Clear. No ulcers. NOSE: Intact. No lesions. MOUTH: Clear. No discharge. THROAT: Clear. No exudate. LUNGS: Clear. No crackles. CARDIAC: S1, S2. No rub. ABDOMEN: Benign. BS+. GENITALIA/RECTUM: Kwok absent. BACK/EXTREMITIES: Edema 0+ Ulcer- NEUROLOGICAL: Alert and motor intact. SKIN: Rash- Bruise- LYMPHATICS: Edema- Ulcer- LABORATORY: Hemoglobin 10.3, creatinine 4.71. ASSESSMENT AND RECOMMENDATIONS: 1. Acute kidney injury with chronic kidney disease stage 6, oliguric, dialysis dependent. 2. Metabolic acidosis, improved. 3. Hyperkalemia, improved. 4. Uremia, stable. 5. Sepsis management per primary team. 6. Rhabdomyolysis, improving.
--- NOTE | 2017-11-01 13:40 | ULT ---
ULTRASOUND ABDOMEN LIMITED: (RIGHT UPPER QUADRANT) DATE: 11/01/17. HISTORY: A 57-year-old male with right upper quadrant abdominal pain and leukocytosis. Dr. Heller reported the findings highly suspicious for acute acalculous cholecystitis to CCU nurse, Lisa Bruce, by telephone at 1:07 p.m. on 11/01/17. FINDINGS: Gallbladder: Distended lumen. Sludge. A small amount of pericholecystic fluid. Positive sonographi c Norman's sign. Common duct: 7 mm. Liver: Size and echogenicity within normal limits. Pancreas: Poorly visualized. Right kidney: No hydronephrosis. IMPRESSION: Suspicious for acute, acalculous cholecystitis. CODE MEENA JN R POS: JASMYNE
[2017-11-01] MEDS: Acetaminophen 325 MG TAB PO PRN (13:48)
[2017-11-01] MEDS: Nicotine 14 MG PATCH TD SCH (14:52)
--- NOTE | 2017-11-01 17:10 | PRG ---
DATE OF SERVICE: 11/01/2017 Grant Canchola remains basically anuric. PHYSICAL EXAMINATION: VITAL SIGNS: His heart rate is in the 50s, blood pressure 131/65, respiratory rates in the 20s. GENERAL: He is more cooperative than he was 2 days ago. Intake and output is positive 30-44. LUNGS: Clear. HEART: Regular rhythm. ABDOMEN: Soft and unremarkable for tenderness, worse on the right. EXTREMITIES: Without asymmetry. He is off Levophed. He had E. coli in his urine. Blood cultures negative. Abdominal ultrasound was done today, which shows findings suggestive of cholecystitis. LABORATORY DATA: White count 17.6, hemoglobin 10.3, platelets 294. Electrolytes were unremarkable. Creatinine is 4.75. Potassium is 3.9. IMPRESSION: 1. ? E. coli prostatitis. 2. Cholecystitis ? 3. Encephalopathy on presentation, improving. 4. Positive drug screen both in [place] and here for amphetamines, methamphetamines and opiates. He has opiates prescribed at home. 5. Acute renal failure on top of chronic kidney disease? 5. Hepatitis C positive, human immunodeficiency virus negative. His prognosis is quite guarded. He is stable for now, but he has multiple medical problems that will need to be addressed. Surgery probably should be consulted for the ultrasound abnormalities. Unfortunately, they did not get good visualization of his kidneys. There is only one remark and that is right kidney without hydronephrosis. Given his renal failure, he probably does need an ultrasoun d of both kidneys. We will continue to follow.
--- NOTE | 2017-11-01 23:02 | ULT ---
BILATERAL UPPER EXTREMITY VENOUS MAPPING 11/01/17 HISTORY: Evaluate for dialysis access in a patient with renal failure. FINDINGS: Mdeel scale, color flow, and doppler evaluation of the bilateral upper extremity basilic and cephalic veins as well as the brachial, radial, and ulnar arteries is performed with 2D imaging. There is normal lumen compressibility and flow seen within the bilateral internal jugular and axillar y veins with normal flow seen in each subclavian vein. RIGHT UPPER EXTREMITY BRACHIAL ARTERY: 4.9 mm RADIAL ARTERY: 1.9 mm ULNAR ARTERY: 2.2 mm CEPHALIC VEIN Upper Arm: 1.5 mm Mid Arm: 1.3 mm Distal Arm: 1.9 mm Antecubital Fossa: 2.4 mm Proximal Forearm: 2.5 mm Mid Forearm: 1.8 mm Distal Forearm: 1.9 mm BASILIC VEIN Upper Arm: 7.4 mm Mid Arm: 6 mm Distal Arm: 6.5 mm Antecubital Fossa: 4.6 mm Proximal Forearm: 1.2 mm Mid Forearm: 0.7 mm Distal Forearm: 0.5 mm LEFT UPPER EXTREMITY BRACHIAL ARTERY: 5.4 mm RADIAL ARTERY: 1.8 mm ULNAR ARTERY: 1.2 mm CEPHALIC VEIN Not visualized. BASILIC VEIN Upper Arm: 5.5 mm Mid Arm: 3.4 mm Distal Arm: 3.4 mm Antecubital Fossa: 3.5 mm Proximal Forearm: 1.2 mm Mid Forearm: 1.3 mm Distal Forearm: 1.2 mm IMPRESSION: The left upper extremity cephalic vein is not visualized. The remaining venous diameters are as descr ibed above. POS: [facility]
--- NOTE | 2017-11-02 03:07 | CON ---
DATE OF CONSULTATION: 11/01/2017 REASON FOR CONSULT: Acalculous cholecystitis. HISTORY OF PRESENT ILLNESS: Mr. Canchola is a 57-year-old man who presented to the emergency room in ex tremis, septic, and acute renal failure, and fairly incoherent. I did evaluate him in the emergency room when I placed his emergency femoral dialysis catheter. At that time, he was complaining of hurt ing all over. He had been found down after an unknown period of time, incontinent of stool, and conf used. According to reports from his family, he had not been eating or drinking for several days befo re and had been not acting himself. Since being admitted, dialyzed and resuscitated, he has become m ore coherent and is now complaining only of abdominal pain. He says he has some pain in his hip and knee when he moves that may be related to the catheter. He has continued to have liquid stool, but s tool studies for C. diff have been negative. His creatinine kinase has been slowly declining, but he was noted to have increased LFTs, so a gallbladder ultrasound was performed, which showed pericholec ystic fluid, wall thickening, and a positive sonographic Norman sign. He had sludge in his gallbladd er and his common duct size was somewhat generous, all of which was concerning for acalculous cholecy stitis. 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 The patient cannot really tell me how long his abdomen has been hurting, but he says it was since before he came into the hospital. He is not currently nauseated or febrile and he is much more oriented. He now knows the month, year, and president and is much less agitated and confused. PAST MEDICAL HISTORY: Hypertension, alcohol abuse, polysubstance abuse, and reflux. OUTPATIENT MEDICATIONS: Include omeprazole, lisinopril, gabapentin, Tylenol No. 3 and ibuprofen, alt osman it is not entirely clear how regularly he was taking his medications. INPATIENT MEDICATIONS: Include folate, subcu heparin, NicoDerm patch, Protonix, Zosyn, thiamine, p.r .n. Haldol and Tylenol. PAST SURGICAL HISTORY: None. SOCIAL HISTORY: Positive for alcohol abuse, ongoing smoking and suspected methamphetamine use, altho [facility] [place][note 3] the patient denies his tox screen was positive for methamphetamines and amphetamines. FAMILY HISTORY: Noncontributory. REVIEW OF SYSTEMS: Negative except per HPI. He cannot localize his abdominal pain to any particular area. PHYSICAL EXAMINATION: VITAL SIGNS: The patient has been afebrile since his admission. Heart rate 65, respirations 20, 95% saturated on 2 liters nasal cannula, blood pressure 139/72. GENERAL: Reveals a somewhat disheveled gentleman in no acute distress. He is not jaundiced or icter ic. He is not flushed or toxic in appearance. HEENT: Unremarkable. NECK: Supple without lymphadenopathy or thyroid nodules. HEART: Regular in its rate and rhythm without murmurs, rubs, or gallops. LUNGS: Clear to auscultation bilaterally. He does not exhibit any pain with deep inspiration. ABDOMEN: Soft, slightly distended and diffusely tender to palpation, although more in the right abdo men than the left and more in the upper abdomen than the lower abdomen. He does not exhibit rigidity , rebound, or guarding and he does not have any palpable masses or hernias. EXTREMITIES: Warm and well perfused without edema. SKIN: He has a papillary skin rash over most of his abdomen and his groins consistent with folliculi tis from shaving. NEUROLOGIC: No focal deficits. PSYCHIATRIC: Currently alert, oriented, and appropriate. IMAGING: Chest x-ray was unremarkable. Head CT on admission did not show any acute abnormality. Ul trasound of the abdomen, abnormal appearing gallbladder. ASSESSMENT: Cholecystitis, possibly acalculous, although sludge was seen in the gallbladder. Liver function tests are mildly elevated with an AST of 79 and ALT of 76. Bilirubin is normal, but the dir ect component is slightly elevated. I have recommended laparoscopic cholecystectomy and the patient is in agreement with this. I think he is likely competent to give consent, but we will also try to c ontact family. He has also still and presumably acute renal failure and anuric, so a tunneled-hemodi alysis catheter has been requested, so that we can remove the catheter in his groin. I will order ve in mapping so that we can preserve an arm for possible long-term dialysis access if necessary, but do not plan on fistula placement at this time given his acute sepsis. The patient has been posted for the operating room tomorrow. He is on scheduled antibiotics.
[2017-11-02] MEDS: Sodium Chloride 0.9% 1,000 ML IV SCH ×2 (06:12→09:31)
[2017-11-02] MEDS: Piperacillin/Tazobactam 2.25 GM in Sodium Chloride 0.9% 100 ML IVPB SCH ×3 (06:12→21:19)
--- NOTE | 2017-11-02 06:57 | PDOC.FM ---
- Subjective Subjective: Patient reports continued RUQ abdominal pain, but that it is a little better than yesterday. He is still having watery BM's and had one overnight. He reports that there is blood, but it is not mixed in the stool, it is mostly on the toilet paper. He denies N/V. He denies fevers/chills, chest pain, SOB. - Objective MAR Reviewed: Yes Vital Signs & Weight: Vital Signs (12 hours) Temp Pulse Resp BP Pulse Ox 11/02/17 04:52 98.5 F 52 L 14 133/66 92 L 11/01/17 22:02 98.5 F 65 20 97 Weight Admit Weight 63.049 kg Weight 63 kg Most Recent Monitor Data Heart Rate from ECG 59 NIBP 127/66 NIBP BP-Mean 93 Respiration from ECG 19 SpO2 96 I&O: 10/31/17 11/01/17 11/02/17 06:59 06:59 06:59 Intake Total 4149.7 3796.8 420 Output Total 200 552 30 Balance 3949.7 3244.8 390 Result Diagrams: 11/01/17 04:19 11/01/17 04:19 Radiology Reviewed by me: Yes (RUQ US: consistent acute acalculous cholecystitis ) <Vania Robles - Last Filed: 11/02/17 06:55> - Objective Vital Signs & Weight: Vital Signs (12 hours) Temp Pulse Resp BP Pulse Ox 11/02/17 08:20 98.6 F 54 L 18 133/70 98 11/02/17 04:52 98.5 F 52 L 14 133/66 92 L Weight Admit Weight 63.049 kg Weight 67.721 kg Most Recent Monitor Data Heart Rate from ECG 59 NIBP 127/66 NIBP BP-Mean 93 Respiration from ECG 19 SpO2 96 I&O: 11/01/17 11/02/17 11/03/17 06:59 06:59 06:59 Intake Total 3796.8 420 Output Total 552 30 Balance 3244.8 390 Result Diagrams: 11/02/17 08:28 11/02/17 08:28 <Francois Mathis - Last Filed: 11/02/17 12:33> Phys Exam - Physical Examination Constitutional: NAD HEENT: moist MMs Respiratory: no wheezing, no rales, no rhonchi, clear to auscultation bilateral Cardiovascular: RRR, no significant murmur, no rub Gastrointestinal: soft, no distention, positive bowel sounds TTP in RUQ with positive murphys sign, voluntary guarding, no rebound Musculoskeletal: no edema, pulses present Neurological: non-focal, moves all 4 limbs Skin: normal turgor, cap refill <2 seconds <Vania Robles - Last Filed: 11/02/17 06:55> Dx/Plan (1) Acute acalculous cholecystitis Code(s): K81.0 - ACUTE CHOLECYSTITIS Status: Acute (2) Toxic metabolic encephalopathy Code(s): G92 - TOXIC ENCEPHALOPATHY Status: Acute (3) Rhabdomyolysis Code(s): M62.82 - RHABDOMYOLYSIS Status: Acute Qualifiers: Rhabdomyolysis type: non-traumatic Qualified Code(s): M62.82 - Rhabdomyolysis (4) Acute renal failure Status: Acute Qualifiers: Acute renal failure type: unspecified Qualified Code(s): N17.9 - Acute kidney failure, unspecified (5) UTI (urinary tract infection) Status: Acute Qualifiers: Urinary tract infection type: acute cystitis (6) Elevated LFTs Code(s): R94.5 - ABNORMAL RESULTS OF LIVER FUNCTION STUDIES Status: Acute (7) High anion gap metabolic acidosis Code(s): E87.2 - ACIDOSIS Status: Acute (8) Hyperkalemia Code(s): E87.5 - HYPERKALEMIA Status: Resolved (9) HTN (hypertension) Code(s): I10 - ESSENTIAL (PRIMARY) HYPERTENSION Status: Chronic Qualifiers: Hypertension type: essential hypertension Qualified Code(s): I10 - Essential (primary) hypertension (10) History of alcohol abuse Code(s): Z87.898 - PERSONAL HISTORY OF OTHER SPECIFIED CONDITIONS Status: Chronic (11) Drug abuse Code(s): F19.10 - OTHER PSYCHOACTIVE SUBSTANCE ABUSE, UNCOMPLICATED Status: Acute (12) Sacral decubitus ulcer Code(s): L89.159 - PRESSURE ULCER OF SACRAL REGION, UNSPECIFIED STAGE Status: Acute - Plan Plan: Toxic metabolic encephalopathy Possibly 2/2 opioid/meth abuse vs. uremia from acute renal failure vs. less likely sepsis from UTI/Acute Acalculous Cholecystitis. Ammonia 34 & BUN/Cr 105/ 11 upon arrival. Nephro and gen surg consulted in ED so patient could undergo emergency HD 2/2 ARF and EKG changes 2/2 hyperkalemia. Pt received HD two times. s/p 3L NS boluses due to severe dehydration and rhabdo. UA has grown E. coli. Procalcitonin initially elevated at 13. Head CT negative. RUQ US consistent with acute acalculous cholecystitis - Dr. Avery with Pulm consulted, appreciate recs - Dr. Bradford with Nephro on board, appreciate recs - Zosyn day 4 - No longer requiring sedation as agitation has improved Acute renal failure BUN /Cr 100/12.8 initially, has improved to 37/4.75. s/p HD initiation as well as aggressive fluid resuscitation. UOP has been low at 30mL total in the past 24 hours - NS @ 75 - Will continue to trend CK & CMPs. - Nephrology on board, appreciate recs. - Plan for tunneled dialysis cath placement today with Dr. Herron per Dr. Bradford recs Acute Acalculous Cholecystitis Pt has positive Norman's sign, mildly elevated LFT's, and signs of acalculous cholecystitis on RUQ US. - Dr. Herron has been consulted and plans for lap jaguar today - Follow surgery recs Rhabdomyolysis CK of 9,286 on admission. Likely contributing to renal failure. Improved to 1348 yesterday, pending for today - Will continue with IVFs and dialysis per nephrology - Will continue to trend CK to evaluate for improvement/resolution. UTI Pt initially had leukocytosis with elevated bands, tachycardia, and was found to have E. coli UTI. UCx has grown E. coli that is pansensitive. Procalcitonin was initially elevated to 13 and has trended down to 11. - Zosyn day 4 - Kwok in place for strict I/O's - NS @ 75 Severe Volume Depletion Unsure how long patient was down. Per family, patient had not eaten or drank for 3 days prior to admission. Patient required pressors on his first night of hospitalization, but has been off pressors since then. UOP has been low at 30 mL in the past 24 hours. - Will continue w/ IVF volume resuscitation as outlined above. - Will continue w/ BMPs & CKs to monitor hydration status. - Will monitor urine output Hyperkalemia, resolved K initially 6.8 with peaked T waves on EKG. Patient s/p Calcium gluconate, sodium bicarb, insulin/D50 & HD. Potassium now WNL. - Will continue to trend w/ BMPs. Hx of EtOH abuse EtOH levels negative - IV Thiamine, PO folic acid - ASE protocol - IV lorazepam ordered PRN. Hx of Polysubstance abuse Pt positive for opioids, meth, and amphetamines on UDS. Pt denies any methampetamine use. Reports taking tylenol #3 for chronic joint pain. - End Finder Twisting Department Leukocytosis Downtrending. Likely 2/2 E. coli UTI and Acute Acalculous Cholecystitis. Patient does have left shift with bandemia. Lactate WNL. procalcitonin elevated. Pt has continued to have diarrhea with possible melena. FOBT positive and fecal lactoferrin positive. C. diff negative - Continue Zosyn - Add other stool studies including stool culture. Normocytic anemia Likely anemia of chronic disease 2/2 liver disease. B12 WNL. - Monitor - Check RBC folate HTN - Holding antihypertensives as patient has been mildly hypotensive since admission. - Will continue to monitor. GERD - protonix DVT PPx: Heparin GI PPx: Protonix IVFs: NS @ 75mL/hr Abx: 2.25g IV zosyn Q8H (renally dosed) Lines/Tubes: Kwok day 4, R femoral temporary trialysis catheter day 4 <Vania Robles - Last Filed: 11/02/17 06:55> Attending Addendum - Attending Addendum Date/Time: 11/02/17 [id number] I personally evaluated the patient and discussed the management with Dr. Robles. I agree with and repeated the History, Examination, Assessment and Plan documented above with any addition or exceptions noted below. Still with abdominal pain, but called this AM for bradycardia. ECG has NSR. Patient completely asymptomatic. No cp/palps/sob/n/v/diaphoresis, etc. Cardiology consulted. Will hold any surgical procedures. <Francois Mathis - Last Filed: 11/02/17 12:33>
[2017-11-02 08:56] LABS: Hemoglobin 9.8 g/dL (14.0-18.0); Mean Corpuscular HGB CONC 33.1 g/dL (32.0-36.0); Mean Corpuscular Hemoglobin 31.6 pg (27.0-31.0); Mean Corpuscular Volume 95.4 fL (78.0-98.0); Mean Platelet Volume 7.1 fL (7.4-10.4); Platelet Count 332 thou/uL (130-400); RBC Distribution Width 12.9 % (11.5-14.5); Red Blood Cell (RBC) Count 3.09 mill/uL (4.70-6.10); White Blood Cell (WBC) Count 17.6 thou/uL (4.8-10.8)
[2017-11-02 09:16] LABS: Anion Gap 19 mmol/L (10-20); BUN (Urea Nitrogen) 58 mg/dL (8.4-25.7); CK (CPK) 317 U/L (30-200); Calc. Creatinine Clearance 10 mL/min (70-130); Calcium 7.8 mg/dL (7.8-10.44); Carbon Dioxide 18 mmol/L (22-29); Chloride 109 mmol/L (98-107); Estimated GFR-MDRD 8; Glucose 105 mg/dL (70-105); Sodium 142 mmol/L (136-145)
[2017-11-02 09:27] LABS: Phosphorus 5.6 mg/dL (2.3-4.7)
[2017-11-02 09:34] LABS: Troponin I Less than 0.010 ng/mL (< 0.028)
[2017-11-02 09:35] LABS: Band 24 % (5-11); Eosinophils 1 % (0-10); Lymphocytes 2 % (21-51); MDiff Complete? YES; Monocytes 3 % (0-10); Neutrophil 70 % (42-75); PLT Morphology Comment Appears Adequate; Polychromasia SLIGHT = 2-3 cells (100X) (0-2/hpf)
[2017-11-02 09:40] LABS: CKMB 11.6 ng/mL (0-6.6)
[2017-11-02] MEDS: Pantoprazole 40 MG VIAL IVP SCH (10:44)
[2017-11-02] MEDS: Folic Acid 1 MG TAB PO SCH (10:44)
[2017-11-02] MEDS: Heparin 5,000 UNITS/ML VIAL SC SCH (10:51)
--- NOTE | 2017-11-02 12:29 | CON ---
DATE OF CONSULTATION: 11/02/2017 REASON FOR CONSULTATION: Bradycardia. HISTORY OF PRESENT ILLNESS: Mr. Canchola is a 57-year-old gentleman who was in the hospital over the week. He initially presented with dehydration and mental status changes. He had a markedly eleva missy creatinine. Temporary dialysis catheter has been placed. He was also diagnosed with cholecystit is. On day of proceeding for laparoscopic cholecystectomy he developed bradycardia. He was asymptomatic. He denies dizziness, lightheadedness, presyncope, syncope in the past. No chest pain or pressure n oted. His EKG this morning was more consistent with sinus bradycardia with a short VT interval. PAST MEDICAL HISTORY: Hypertension, acid reflux, alcohol abuse, polysubstance abuse. CURRENT MEDICATIONS: Gabapentin, lisinopril, omeprazole, Tylenol #3, ibuprofen. SOCIAL HISTORY: Positive alcohol, methamphetamine use and tobacco abuse. He is currently not marrie d. REVIEW OF SYSTEMS: Ten point review of systems reviewed, otherwise negative. PHYSICAL EXAMINATION: VITAL SIGNS: Blood pressure 132/70, pulse 84, temperature 98.6. GENERAL: Patient is a pleasant male who is in no acute distress. The patient appears his stated age. NEUROLOGIC: The patient is alert and oriented times 3 with no focal neurologic deficits. HEENT: Sclerae without icterus. Mouth has moist mucous membranes with normal pallor. NECK: No JVD. Carotid upstroke brisk. No bruits bilaterally. LUNGS: Clear to auscultation with unlabored respirations. BACK: No scoliosis or kyphosis. CARDIAC: Regular rate and rhythm with normal S1 and S2. No S3 or S4 noted. No significant rubs, mur murs, thrills, or gallops noted throughout the precordium. PMI is not displaced. There is no parast ernal heave. ABDOMEN: Soft, nontender, nondistended. No peritoneal signs present. No hepatosplenomegaly. No abn ormal striae. EXTREMITIES: 2+ femoral and 2+ dorsalis pedis pulses. No cyanosis, clubbing, or edema. SKIN: No gross abnormalities. LABORATORY: Sodium 142, potassium 4.0, creatinine 7.07, CK 317, CK-MB 11.6 with a troponin less than 0.01. EKG shows sinus bradycardia. IMPRESSION: 1. Bradycardia. 2. Cholecystitis. 3. Chronic kidney disease. 4. Alcohol abuse. 5. Methamphetamine use. RECOMMENDATIONS: Today, I had the nurse ambulate Mr. Canchola. Mr. Canchola is able to ambulate with incr ease in his heart rate up in the 70s and 80s. During a coughing spell his heart rate also increased in the 90s. At this point, he is currently asymptomatic. Would recommend observation overnight, ass ess for any further dysrhythmias. Would delay surgery for 1 day. Will also recommend reviewing his echo. At this point, he has no current symptoms suggesting angina. He was counseled on cessation of all tobacco products.
[2017-11-02 13:16] LABS: HCV log10 6.873 (.); Hep C PCR-Quant 7470000 IU/mL (.)
[2017-11-02 14:26] LABS: Folate,Hemolysate 393.8 ng/mL (Not Estab.); Hematocrit 29.8 % (37.5-51.0); RBC Folate Test Component 1321 ng/mL (>498)
[2017-11-02] MEDS: Nicotine 14 MG PATCH TD SCH (15:05)
--- NOTE | 2017-11-02 18:04 | PDOC.GSPN ---
Surgery Progress Note: Subj - Subjective Narrative: Abd still hurts but not bad. Worse after eating. More on right than left but hard to localize. Discussed lap jaguar and tunneled HD cath, including inherent risks, and pt wanted to proceed but had to defer OR due to junctional rhythm. Rescheduled to Tuesday. Cont abx. Surgery Progress Note: Obj - Vital signs Vital signs: Vital Signs - Most Recent Temp Pulse Resp BP Pulse Ox 98.7 F 65 14 168/77 H 96 11/02/17 12:29 11/02/17 12:29 11/02/17 12:29 11/02/17 12:29 11/02/17 12:29 Surgery Progress Note: Results - Labs Result Diagrams: 11/02/17 08:28 11/02/17 08:28 Lab results: Laboratory Results - last 24 hr 10/30/17 11/01/17 11/02/17 18:55 08:10 08:28 WBC RBC Hgb Hct MCV MCH MCHC RDW Plt Count MPV Neutrophils % (Manual) Band Neuts % (Manual) Lymphocytes % (Manual) Monocytes % (Manual) Eosinophils % (Manual) Neutrophils # Lymphocytes # Plt Morphology Comment Polychromasia Sodium 142 Potassium 4.0 Chloride 109 H Carbon Dioxide 18 L Anion Gap 19 BUN 58 H Creatinine 7.07 H Estimated GFR (MDRD) 8 Glucose 105 Calcium 7.8 Phosphorus Magnesium Creatine Kinase 317 H CK-MB (CK-2) Troponin I Folate Hemolysate 393.8 RBC Folate 1321 Hematocrit 29.8 L TSH 3rd Generation HCV RNA (PCR) log10 6.873 HCV RNA Ultraquant [id number] Hepatitis C RNA Comment 11/02/17 11/02/17 11/02/17 08:28 08:28 08:28 WBC 17.6 H RBC 3.09 L Hgb 9.8 L Hct 29.4 L MCV 95.4 MCH 31.6 H MCHC 33.1 RDW 12.9 Plt Count 332 MPV 7.1 L Neutrophils % (Manual) 70 Band Neuts % (Manual) 24 H Lymphocytes % (Manual) 2 L Monocytes % (Manual) 3 Eosinophils % (Manual) 1 Neutrophils # Not Reportable Lymphocytes # Not Reportable Plt Morphology Comment Appears Adequate Polychromasia SLIGHT = 2-3 cells Sodium Potassium Chloride Carbon Dioxide Anion Gap BUN Creatinine Estimated GFR (MDRD) Glucose Calcium Phosphorus 5.6 H Magnesium 2.0 Creatine Kinase CK-MB (CK-2) 11.6 H* Troponin I Less than 0.010 Folate Hemolysate RBC Folate Hematocrit TSH 3rd Generation HCV RNA (PCR) log10 HCV RNA Ultraquant Hepatitis C RNA Comment 11/02/17 08:28 WBC RBC Hgb Hct MCV MCH MCHC RDW Plt Count MPV Neutrophils % (Manual) Band Neuts % (Manual) Lymphocytes % (Manual) Monocytes % (Manual) Eosinophils % (Manual) Neutrophils # Lymphocytes # Plt Morphology Comment Polychromasia Sodium Potassium Chloride Carbon Dioxide Anion Gap BUN Creatinine Estimated GFR (MDRD) Glucose Calcium Phosphorus Magnesium Creatine Kinase CK-MB (CK-2) Troponin I Folate Hemolysate RBC Folate Hematocrit TSH 3rd Generation 0.5873 HCV RNA (PCR) log10 HCV RNA Ultraquant Hepatitis C RNA Comment - Radiology Interpretation CT scan - head Status: image reviewed by me, report reviewed by me
--- NOTE | 2017-11-02 18:27 | PRG ---
DATE OF SERVICE: 11/02/2017 SUBJECTIVE: A 57-year-old gentleman being seen for acute kidney injury, he is dialysis dependent. T he patient denies any nausea, vomiting or chest pain. PHYSICAL EXAMINATION: GENERAL: Patient is awake, alert. VITAL SIGNS: Afebrile, pulse 65, breathing at 16, blood pressure 133/70. HEAD/NECK: Normocephalic. Atraumatic. EYES: EOMI. No deformity. EARS: Clear. No ulcers. NOSE: Intact. No lesions. MOUTH: Clear. No discharge. THROAT: Clear. No exudate. LUNGS: Clear. No crackles. CARDIAC: S1, S2. No rub. ABDOMEN: Benign. BS+. GENITALIA/RECTUM: Kwok absent. BACK/EXTREMITIES: Edema 0+ Ulcer- NEUROLOGICAL: Alert and motor intact. SKIN: Rash- Bruise- LYMPHATICS: Edema- Ulcer- LABORATORY DATA: Show creatinine 7 and bicarbonate 18. ASSESSMENT AND RECOMMENDATIONS: 1. Stage 6 chronic kidney disease. We will plan dialysis. 2. Hyperphosphatemia. Start binders. 3. Metabolic acidosis. Plan dialysis. The patient remains oliguric.
[2017-11-02] MEDS: Calcium Carbonate 500 MG ChewTAB PO PRN (18:49)
[2017-11-03] MEDS: Sodium Chloride 0.9% 1,000 ML IV SCH (02:09)
[2017-11-03] MEDS: Piperacillin/Tazobactam 2.25 GM in Sodium Chloride 0.9% 100 ML IVPB SCH ×3 (05:21→20:53)
[2017-11-03 06:09] LABS: Anion Gap 17 mmol/L (10-20); BUN (Urea Nitrogen) 66 mg/dL (8.4-25.7); CK (CPK) 149 U/L (30-200); Calc. Creatinine Clearance 10 mL/min (70-130); Calcium 7.7 mg/dL (7.8-10.44); Carbon Dioxide 19 mmol/L (22-29); Chloride 108 mmol/L (98-107); Estimated GFR-MDRD 7; Glucose 106 mg/dL (70-105); Potassium 3.9 mmol/L (3.5-5.1); Sodium 140 mmol/L (136-145)
[2017-11-03 06:20] LABS: Band 15 % (5-11); Hemoglobin 9.3 g/dL (14.0-18.0); Lymphocytes 10 % (21-51); MDiff Complete? YES; Mean Corpuscular HGB CONC 33.4 g/dL (32.0-36.0); Mean Corpuscular Hemoglobin 31.6 pg (27.0-31.0); Mean Corpuscular Volume 94.5 fL (78.0-98.0); Mean Platelet Volume 7.5 fL (7.4-10.4); Monocytes 4 % (0-10); Neutrophil 71 % (42-75); PLT Morphology Comment Appears Adequate; Platelet Count 322 thou/uL (130-400); RBC Distribution Width 12.8 % (11.5-14.5); Red Blood Cell (RBC) Count 2.95 mill/uL (4.70-6.10); White Blood Cell (WBC) Count 15.3 thou/uL (4.8-10.8)
--- NOTE | 2017-11-03 06:34 | PDOC.FM ---
- Subjective Subjective: Pt feeling well, complains of continued abdominal pain. Ready for dialysis this am - Objective Vital Signs & Weight: Vital Signs (12 hours) Temp Pulse Resp BP Pulse Ox 11/03/17 04:00 99.2 F 51 L 16 155/88 H 95 11/03/17 03:00 97 11/02/17 21:16 99.2 F 51 L 16 150/74 H 95 Weight Admit Weight 63.049 kg Weight 67.721 kg Most Recent Monitor Data Heart Rate from ECG 59 NIBP 127/66 NIBP BP-Mean 93 Respiration from ECG 19 SpO2 96 I&O: 11/01/17 11/02/17 11/03/17 06:59 06:59 06:59 Intake Total 3796.8 420 1537 Output Total 552 30 250 Balance 3244.8 390 1287 Result Diagrams: 11/03/17 03:30 11/03/17 03:30 <Grant Jeffers - Last Filed: 11/04/17 05:50> - Objective Vital Signs & Weight: Vital Signs (12 hours) Temp Pulse Resp BP Pulse Ox 11/04/17 08:00 98.5 F 57 L 18 168/86 H 96 11/04/17 04:00 99.0 F 63 18 160/89 H 95 Weight Admit Weight 63 kg Weight 67.721 kg Most Recent Monitor Data Heart Rate from ECG 59 NIBP 127/66 NIBP BP-Mean 93 Respiration from ECG 19 SpO2 96 I&O: 11/03/17 11/04/17 11/05/17 06:59 06:59 06:59 Intake Total 1537 720 Output Total 250 350 Balance 1287 370 Result Diagrams: 11/04/17 05:37 11/04/17 05:37 <Mini Lugo - Last Filed: 11/04/17 15:53> Phys Exam - Physical Examination Constitutional: NAD HEENT: moist MMs Respiratory: no wheezing, clear to auscultation bilateral Cardiovascular: RRR, no significant murmur Gastrointestinal: soft, non-tender Musculoskeletal: pulses present Neurological: moves all 4 limbs Psychiatric: normal affect Skin: normal turgor <Grant Jeffers - Last Filed: 11/04/17 05:50> Dx/Plan (1) Acute acalculous cholecystitis Code(s): K81.0 - ACUTE CHOLECYSTITIS Status: Acute (2) Acute renal failure Status: Acute Qualifiers: Acute renal failure type: unspecified Qualified Code(s): N17.9 - Acute kidney failure, unspecified (3) Anemia Code(s): D64.9 - ANEMIA, UNSPECIFIED Status: Acute (4) Drug abuse Code(s): F19.10 - OTHER PSYCHOACTIVE SUBSTANCE ABUSE, UNCOMPLICATED Status: Acute (5) Elevated LFTs Code(s): R94.5 - ABNORMAL RESULTS OF LIVER FUNCTION STUDIES Status: Acute (6) High anion gap metabolic acidosis Code(s): E87.2 - ACIDOSIS Status: Acute (7) Leukocytosis Code(s): D72.829 - ELEVATED WHITE BLOOD CELL COUNT, UNSPECIFIED Status: Acute (8) Rhabdomyolysis Code(s): M62.82 - RHABDOMYOLYSIS Status: Acute Qualifiers: Rhabdomyolysis type: non-traumatic Qualified Code(s): M62.82 - Rhabdomyolysis (9) Toxic metabolic encephalopathy Code(s): G92 - TOXIC ENCEPHALOPATHY Status: Acute (10) UTI (urinary tract infection) Status: Acute Qualifiers: Urinary tract infection type: acute cystitis (11) Volume depletion Code(s): E86.9 - VOLUME DEPLETION, UNSPECIFIED Status: Acute (12) GERD (gastroesophageal reflux disease) Code(s): K21.9 - GASTRO-ESOPHAGEAL REFLUX DISEASE WITHOUT ESOPHAGITIS Status: Chronic (13) HTN (hypertension) Code(s): I10 - ESSENTIAL (PRIMARY) HYPERTENSION Status: Chronic Qualifiers: Hypertension type: essential hypertension Qualified Code(s): I10 - Essential (primary) hypertension (14) History of alcohol abuse Code(s): Z87.898 - PERSONAL HISTORY OF OTHER SPECIFIED CONDITIONS Status: Chronic (15) Hyperkalemia Code(s): E87.5 - HYPERKALEMIA Status: Resolved - Plan Plan: Toxic metabolic encephalopathy Possibly 2/2 opioid/meth abuse vs. uremia from acute renal failure vs. less likely sepsis from UTI/Acute Acalculous Cholecystitis. Ammonia 34 & BUN/Cr 105/ 11 upon arrival. Nephro and gen surg consulted in ED so patient could undergo emergency HD 2/2 ARF and EKG changes 2/2 hyperkalemia. Pt received HD 3 times since admission. s/p 3L NS boluses due to severe dehydration and rhabdo. UA has grown E. coli. Procalcitonin initially elevated at 13. Head CT negative. RUQ US consistent with acute acalculous cholecystitis - Dr. Avery with Pulm consulted, appreciate recs - Dr. Bradford with Nephro on board, appreciate recs - Zosyn day 5 - No longer requiring sedation as agitation has improved - pt going for dialysis today Acute renal failure BUN /Cr 100/12.8 initially, has improved to 37/4.75. s/p HD initiation as well as aggressive fluid resuscitation. UOP has been low at 30mL total in the past 24 hours - NS @ 75 - Will continue to trend CK & CMPs. - Nephrology on board, appreciate recs. - Plan for dialysis today Acute Acalculous Cholecystitis Pt has positive Norman's sign, mildly elevated LFT's, and signs of acalculous cholecystitis on RUQ US. - Dr. Herron has been consulted and plans for lap jaguar tuesday - Follow surgery recs Rhabdomyolysis CK of 9,286 on admission 100's today. - Will continue with IVFs and dialysis per nephrology UTI Pt initially had leukocytosis with elevated bands, tachycardia, and was found to have E. coli UTI. UCx has grown E. coli that is pansensitive. Procalcitonin was initially elevated to 13 and has trended down to 11. - Zosyn day 5 - Kwok in place for strict I/O's - NS @ 75 Severe Volume Depletion Unsure how long patient was down. Per family, patient had not eaten or drank for 3 days prior to admission. Patient required pressors on his first night of hospitalization, but has been off pressors since then. - Will continue w/ IVF volume resuscitation as outlined above. - Will continue w/ BMPs & CKs to monitor hydration status. - Will monitor urine output Hyperkalemia, resolved K initially 6.8 with peaked T waves on EKG. Patient s/p Calcium gluconate, sodium bicarb, insulin/D50 & HD. Potassium now WNL. - Will continue to trend w/ BMPs. Hx of EtOH abuse EtOH levels negative - IV Thiamine, PO folic acid - ASE protocol - IV lorazepam ordered PRN. Hx of Polysubstance abuse Pt positive for opioids, meth, and amphetamines on UDS. Pt denies any methampetamine use. Reports taking tylenol #3 for chronic joint pain. - Coordinator Of Rehabilitation Services Leukocytosis Downtrending. Likely 2/2 E. coli UTI and Acute Acalculous Cholecystitis. Patient does have left shift with bandemia. Lactate WNL. procalcitonin elevated. Pt has continued to have diarrhea with possible melena. FOBT positive and fecal lactoferrin positive. C. diff negative - Continue Zosyn - GI consulted Normocytic anemia Likely anemia of chronic disease 2/2 liver disease. B12 WNL. - Monitor - Check RBC folate HTN - Will continue to monitor. GERD - protonix <Grant Jeffers - Last Filed: 11/04/17 05:50> Attending Addendum - Attending Addendum Date/Time: 11/03/17 [id number] I personally evaluated the patient and discussed the management with Dr. Dodson. I agree with the History, Examination, Assessment and Plan documented above with any addition or exceptions noted below. Patient was seen in dialysis. He has had steady decline in hemoglobin and positive fobt. Will consult GI. Plans for tunneled diaylsis catheter and cholecystectomy on 11/04/17. <Mini Lugo - Last Filed: 11/04/17 15:53>
--- NOTE | 2017-11-03 07:43 | EKG ---
Test Reason : Blood Pressure : / mmHG Vent. Rate : 049 BPM Atrial Rate : 049 BPM P-R Int : 114 ms QRS Dur : 096 ms QT Int : 452 ms P-R-T Axes : 048 050 033 degrees QTc Int : 408 ms Marked sinus bradycardia Low voltage QRS short pr Abnormal ECG When compared with ECG of 30-OCT-2017 12:34, (Unconfirmed) Vent. rate has decreased BY 47 BPM QT has shortened Confirmed by DR. Maximiliano HORTON ([id number]) on 11/03/2017 7:43:12 AM Referred By: AVA Zuleta Confirmed By:DR. Maximiliano HORTON
--- NOTE | 2017-11-03 10:38 | PRG ---
DATE OF SERVICE: 11/03/2017 SUBJECTIVE: This is a 57-year-old gentleman being seen for acute kidney injury, dialysis dependent. The patient denies any nausea, vomiting, or chest pain. PHYSICAL EXAMINATION: GENERAL: Patient is awake, alert. VITAL SIGNS: Afebrile, pulse 51, breathing at 16, blood pressure 155/82. OBJECTIVE: See above. Awake, alert, in no acute distress. GENERAL APPEARANCE AND MENTAL STATUS: Fair. HEAD/NECK: Normocephalic. Atraumatic. EYES: EOMI. No deformity. EARS: Clear. No ulcers. NOSE: Intact. No lesions. MOUTH: Clear. No discharge. THROAT: Clear. No exudate. LUNGS: Clear. No crackles. CARDIAC: S1, S2. No rub. ABDOMEN: Benign. BS+. GENITALIA/RECTUM: Kwok absent. BACK/EXTREMITIES: Edema 0+ Ulcer- NEUROLOGICAL: Alert and motor intact. SKIN: Rash- Bruise- LYMPHATICS: Edema- Ulcer- LABORATORY: Creatinine 7.8. ASSESSMENT AND RECOMMENDATIONS: 1. Stage 6 chronic kidney disease, plan dialysis. 2. Acute tubular necrosis, multiple factors. 3. Anemia, stable. 4. Medication based on glomerular filtration rate are appropriate. We will plan dialysis today. I will stop IV fluids. The patient remains oliguric.
[2017-11-03 11:45] VITALS: BMI 23.3
[2017-11-03] MEDS: Pantoprazole 40 MG VIAL IVP SCH (13:21)
[2017-11-03] MEDS: Folic Acid 1 MG TAB PO SCH (13:22)
--- NOTE | 2017-11-03 14:27 | PDOC.GSPN ---
Surgery Progress Note: Subj - Subjective Narrative: Patient is feeling better. He has a guide ordered but hasn't eaten because he says it makes the abdominal pain worse. He is still having diarrhea but his stool studies are negative. He had about 3 bowel movements yesterday. The nurse reports they're green and mucousy in appearance. The patient has not seen any blood in his stool but there is a small amount of blood when he wipes. His abdomen is less tender today diffusely, but he still has right upper quadrant tenderness to palpation. Cardiac evaluation and echocardiogram did not find any significant abnormalities. We will plan for laparoscopic cholecystectomy with intraoperative cholangiogram tomorrow, as well as tunneled hemodialysis catheter placement. Inherent risks of the surgeries were discussed with the patient. These include but are not limited to bleeding, infection, risks of anesthesia, damage to nearby structures including bowel liver and bile duct, need for open surgery, and hemothorax pneumothorax and DVT for the catheter. He understands and accepts these risks and wishes to proceed. Surgery Progress Note: Obj - Vital signs Vital signs: Vital Signs - Most Recent Temp Pulse Resp BP Pulse Ox 99.1 F 53 L 16 158/70 H 94 L 11/03/17 13:08 11/03/17 13:08 11/03/17 13:08 11/03/17 13:08 11/03/17 13:08 Surgery Progress Note: Results - Labs Result Diagrams: 11/03/17 03:30 11/03/17 03:30 Lab results: Laboratory Results - last 24 hr 11/03/17 11/03/17 03:30 03:30 WBC 15.3 H RBC 2.95 L Hgb 9.3 L Hct 27.9 L MCV 94.5 MCH 31.6 H MCHC 33.4 RDW 12.8 Plt Count 322 MPV 7.5 Neutrophils % (Manual) 71 Band Neuts % (Manual) 15 H Lymphocytes % (Manual) 10 L Monocytes % (Manual) 4 Plt Morphology Comment Appears Adequate Sodium 140 Potassium 3.9 Chloride 108 H Carbon Dioxide 19 L Anion Gap 17 BUN 66 H Creatinine 7.93 H Estimated GFR (MDRD) 7 Glucose 106 H Calcium 7.7 L Creatine Kinase 149 - Radiology Interpretation CT scan - head Status: image reviewed by me, report reviewed by me
[2017-11-03] MEDS ORDERED: Tuberculin PPD 0.1 ML VIAL I-DERMAL SCH (14:30)
--- NOTE | 2017-11-03 15:40 | PRG ---
DATE OF SERVICE: 11/03/2017 SUBJECTIVE: Mr. Canchola has no new complaints. His recent echo suggested a normal LVEF. No significa nt valvular dysfunction. He has ambulated with appropriate increase in heart rate. He does have int ermittent junctional rhythm with bradycardia, but appears to be asymptomatic. OBJECTIVE: GENERAL: The patient is a pleasant male who is in no acute distress. The patient appears his stated age. VITAL SIGNS: Heart rate 53, blood pressure 158/70, respirations 16. NEUROLOGIC: The patient is alert and oriented times 3 with no focal neurologic deficits. HEENT: Sclerae without icterus. Mouth has moist mucous membranes with normal pallor. NECK: No JVD. Carotid upstroke brisk. No bruits bilaterally. LUNGS: Clear to auscultation with unlabored respirations. BACK: No scoliosis or kyphosis. CARDIAC: Regular rate and rhythm with normal S1 and S2. No S3 or S4 noted. No significant rubs, mu rmurs, thrills, or gallops noted throughout the precordium. PMI is not displaced. There is no tonya ternal heave. ABDOMEN: Soft, nontender, nondistended. No peritoneal signs present. No hepatosplenomegaly. No ab normal striae. EXTREMITIES: 2+ femoral and 2+ dorsalis pedis pulses. No cyanosis, clubbing, or edema. SKIN: No gross abnormalities. IMPRESSION: 1. Bradycardia. 2. Cholecystitis. RECOMMENDATIONS: Mr. Canchola's overall LVEF appears normal. He does have appropriate increases of hea rt rate noted with exertion. At this point, it would be okay from my standpoint to proceed with a la paroscopic cholecystectomy, which is felt to be low risk. He has no current symptoms suggesting villa na. If needed, would use dopamine or atropine with increase heart rate. He has a narrow complex, al though given that he appears to be chronotropically competent, it should not be an issue.
[2017-11-03] MEDS: Nicotine 14 MG PATCH TD SCH (17:11)
[2017-11-03] MEDS: Saccharomyces boulardii 250 MG CAP PO SCH (20:54)
[2017-11-03] MEDS ORDERED: Melatonin 3 MG TAB PO PRN (21:26)
[2017-11-03] MEDS ORDERED: Melatonin 3 MG TAB PO SCH (21:45)
--- NOTE | 2017-11-03 23:56 | CON ---
DATE OF CONSULTATION: 11/03/2017 REASON FOR CONSULTATION: Positive fecal occult blood test, possible melena. CONSULTING PHYSICIAN: Dr. Grant Jeffers. HISTORY OF PRESENT ILLNESS: The patient is a 57-year-old male with past medical history of hypertens ion, polysubstance abuse, alcohol abuse, GERD, and recent diagnosis of chronic hepatitis C, presentin g with complaints of darker colored stools during this admission. Upon chart review, the patient was originally admitted to the hospital for altered mental status as well as incontinence of stool. On admission, he was noted to have a significantly increased BUN and creatinine, concerning for acute re nal failure and ultimately went to emergent dialysis. He was also diagnosed with rhabdomyolysis, sev ere dental volume depletion, anion gap metabolic acidosis, hyperkalemia as well as elevated LFTs. Hi s part of the workup for his elevated LFTs, he was noted to have findings that were concerning for ac alculous cholecystitis, but testing for chronic viral hepatitis was positive for both hepatitis C ant ibody as well as presence of the virus within the blood. However, during this hospitalization, he al so has been complaining of darker colored stools that were concerning for possible bleeding. Upon ev aluation of the patient today, he had had a bowel movement shortly before my arrival, at which point, I was able to directly observe the dark colored bowel movements that he has been having during this admission. He states that he has been having dark brown (not black) stools since admission that have been semi-solid in nature, having approximately 1-2 semisolid bowel movements per day. At this poin t, he denies any hematemesis or overt hematochezia in the form of bright red blood per rectum. He al so endorses increased right upper quadrant abdominal pain characterized as an aching/pressure type pa in, nonradiating, intermittent and would achieve a 7/10 in severity, especially with pressure to the region. If he does not put pressure to that particular region, his pain resolves completely. He als o complains of some increased episodes of substernal pyrosis and regurgitation during this admission that has been adequately controlled with PPI administration. However, during the course of our inter view, he attempted to drink fluids while lying in the supine position, which could further exacerbate any sort of heartburn type symptoms. Currently, denies any nausea, vomiting, fevers, chills, hemate mesis, hematochezia, weight loss or abdominal pain. REVIEW OF SYSTEMS: A 10-category review of systems was obtained with all responses negative except f or the pertinent positives as listed in the HPI. PAST MEDICAL HISTORY: As per HPI. PAST SURGICAL HISTORY: None. FAMILY HISTORY: Denies any GI malignancies. SOCIAL HISTORY: He endorses significant alcohol abuse as an outpatient, tobacco abuse and methamphet amine use. INPATIENT MEDICATIONS: Reviewed. ALLERGIES: No known drug allergies. PHYSICAL EXAMINATION: VITAL SIGNS: Temperature 99.4, pulse 55, blood pressure 158/85, respiratory rate 15, satting 93% on room air. GENERAL: The patient is lying in bed in no acute distress, alert and oriented x4. NECK: Supple. No JVD noted. CARDIOVASCULAR: Regular rate and rhythm with no discernible murmurs, gallops or rubs. LUNGS: Clear to auscultation bilaterally with no discernible wheezes or rales. ABDOMEN: Normoactive bowel sounds, soft, nondistended. Mild tenderness to palpation in the right up per quadrant and mid epigastric regions. EXTREMITIES: No cyanosis, clubbing or edema. LABORATORY DATA: CBC with a white blood cell count of 15.3, hemoglobin 9.3, hematocrit 27.9, platele ts 322. Chemistry with a sodium of 140, potassium 3.9, chloride 108, CO2 19, BUN 66, creatinine 7.93 , glucose 106, AST 79, ALT 76, alkaline phosphatase 114, total bilirubin 0.7, INR 1.3, calculation of noninvasive markers of fibrosis yielded an APRI score of 0.6 and a FIB-4 score of 1.6. IMAGING DATA: Right upper quadrant ultrasound obtained on 11/01/2017 showed the presence of perichol ecystic fluid. Common bile duct measuring approximately 7 mm in diameter; however, the liver size an d echogenicity of the liver were normal with no contour abnormalities noted during that examination. ASSESSMENT AND PLAN: The patient is a 57-year-old male with past medical history of hypertension, al cohol abuse, polysubstance abuse, gastroesophageal reflux disease and recent diagnosis of chronic hep atitis C, presenting with possible melena. 1. Possible melena. The patient was initially admitted on 10/30/2017 after being found down at home and was noted to have significant medical problems on admission including anion gap metabolic acidos is, acute renal failure as well as anemia that has since been fairly stable during this hospitalizati on. Currently, he states that he has been having darker colored stools since admission on the owever, upon evaluation of his stools today, they are not melenic nature (they are not black and are semi-solid in consistency) and when coupled with a relatively stable H&H is not necessarily consisten t with active GI bleeding. Based on his current labs and normal platelet count in addition to either normal or indeterminate noninvasive markers of fibrosis, the likelihood of cirrhosis is low. Given his anemia on admission and his significant renal disease, I am more inclined to think that his anemi a is caused by either anemia of chronic disease or renal disease rather than acute gastrointestinal b lood loss. Further characterization of his anemia is warranted. RECOMMENDATIONS: 1. We would continue to trend H&H and transfuse as necessary to maintain an H&H on 09/17. 2. Continue to monitor clinically for signs of active gastrointestinal bleeding. 3. We would continue PPI daily for now given symptoms of acid reflux during this admission. I would highly recommend strict acid reflux precautions while inpatient (for example, maintaining an upright position with the ingestion of any meals either solid or liquid and maintaining up position for appr oximately 2 hours afterwards, refraining from ingestion of any trigger foods, would refrain from smok ing during this admission, etc.). 4. Chronic hepatitis C infection. The patient is presenting with mildly elevated LFTs in the form o f a primarily hepatocellular process with AST of 79 and ALT of 76. This is consistent with a history of chronic hepatitis C infection as evidenced by his positive hepatitis C antibody and presence of t he virus upon viral load evaluation. He does have a history of IV drug use as well as tattoos in the past being the more likely mechanism by which he contracted the virus. At this point, he does not h ave any overt evidence of hepatic failure and noninvasive markers of fibrosis are negative for the pr esence of cirrhosis; however, with the presence of hepatitis C, it is unclear as to the chronicity of how long he has had this infection and will require treatment here in the near future. RECOMMENDATIONS: The patient will need follow up in the GI clinic after this hospitalization for fur ther evaluation for chronic liver disease and workup prior to initiation of treatment for chronic hep atitis C infection. We will continue to follow. Please call with any questions.
[2017-11-04] MEDS ORDERED: CEFAZOLIN/Water 2 GM/20 ML SYRINGE SLOW IVP SCH (02:30)
[2017-11-04] MEDS: Piperacillin/Tazobactam 2.25 GM in Sodium Chloride 0.9% 100 ML IVPB SCH ×3 (06:00→21:06)
--- NOTE | 2017-11-04 06:00 | PDOC.FM ---
- Subjective Subjective: Pt is feeling well this morning anticipating jaguar today. Complains of continued RUQ abdominal pain, no other complaints at this time. No cp no palpitations, no sob no cough, no n/v - Objective Vital Signs & Weight: Vital Signs (12 hours) Temp Pulse Resp BP Pulse Ox 11/03/17 20:53 99.3 F 61 16 148/68 H 96 Weight Admit Weight 63 kg Weight 67.721 kg Most Recent Monitor Data Heart Rate from ECG 59 NIBP 127/66 NIBP BP-Mean 93 Respiration from ECG 19 SpO2 96 I&O: 11/02/17 11/03/17 11/04/17 06:59 06:59 06:59 Intake Total 420 1537 720 Output Total 30 250 350 Balance 390 1287 370 Result Diagrams: 11/04/17 05:37 11/04/17 05:37 <Grant Jeffers - Last Filed: 11/04/17 08:46> - Objective Vital Signs & Weight: Vital Signs (12 hours) Temp Pulse Resp BP BP Pulse Ox 11/05/17 11:51 97.4 F L 72 16 153/84 H 97 11/05/17 09:53 97.4 F L 72 16 97 11/05/17 09:52 60 146/78 H 11/05/17 08:47 98 F 60 18 146/78 H 97 11/05/17 05:33 94 L Weight Admit Weight 63 kg Weight 67.8 kg Most Recent Monitor Data Heart Rate from ECG 59 NIBP 127/66 NIBP BP-Mean 93 Respiration from ECG 19 SpO2 96 I&O: 11/04/17 11/05/17 11/06/17 06:59 06:59 06:59 Intake Total 720 1480 Output Total 350 1125 900 Balance 370 355 -900 Result Diagrams: 11/05/17 05:30 11/05/17 05:30 <Mini Lugo - Last Filed: 11/05/17 16:36> Phys Exam - Physical Examination Constitutional: NAD HEENT: moist MMs Respiratory: no wheezing, clear to auscultation bilateral Cardiovascular: RRR, no significant murmur Gastrointestinal: soft moderate RUQ tenderness to palpation Musculoskeletal: no edema, pulses present Neurological: normal sensation, moves all 4 limbs Psychiatric: normal affect Skin: normal turgor <Grant Jeffers Filed: 11/04/17 08:46> Dx/Plan (1) Acute acalculous cholecystitis Code(s): K81.0 - ACUTE CHOLECYSTITIS Status: Acute (2) Acute renal failure Status: Acute Qualifiers: Acute renal failure type: unspecified Qualified Code(s): N17.9 - Acute kidney failure, unspecified (3) Anemia Code(s): D64.9 - ANEMIA, UNSPECIFIED Status: Acute (4) Drug abuse Code(s): F19.10 - OTHER PSYCHOACTIVE SUBSTANCE ABUSE, UNCOMPLICATED Status: Acute (5) Elevated LFTs Code(s): R94.5 - ABNORMAL RESULTS OF LIVER FUNCTION STUDIES Status: Acute (6) High anion gap metabolic acidosis Code(s): E87.2 - ACIDOSIS Status: Acute (7) Leukocytosis Code(s): D72.829 - ELEVATED WHITE BLOOD CELL COUNT, UNSPECIFIED Status: Acute (8) Rhabdomyolysis Code(s): M62.82 - RHABDOMYOLYSIS Status: Acute Qualifiers: Rhabdomyolysis type: non-traumatic Qualified Code(s): M62.82 - Rhabdomyolysis (9) Toxic metabolic encephalopathy Code(s): G92 - TOXIC ENCEPHALOPATHY Status: Acute (10) UTI (urinary tract infection) Status: Acute Qualifiers: Urinary tract infection type: acute cystitis (11) Volume depletion Code(s): E86.9 - VOLUME DEPLETION, UNSPECIFIED Status: Acute (12) GERD (gastroesophageal reflux disease) Code(s): K21.9 - GASTRO-ESOPHAGEAL REFLUX DISEASE WITHOUT ESOPHAGITIS Status: Chronic (13) HTN (hypertension) Code(s): I10 - ESSENTIAL (PRIMARY) HYPERTENSION Status: Chronic Qualifiers: Hypertension type: essential hypertension Qualified Code(s): I10 - Essential (primary) hypertension (14) History of alcohol abuse Code(s): Z87.898 - PERSONAL HISTORY OF OTHER SPECIFIED CONDITIONS Status: Chronic (15) Hyperkalemia Code(s): E87.5 - HYPERKALEMIA Status: Resolved - Plan Plan: Acute renal failure BUN /Cr 100/12.8 initially, has improved to 44/5.92. s/p HD as well as aggressive fluid resuscitation. UOP has been low at 30mL total in the past 24 hours - stopped per Sanchez - Will continue to trend CK & CMPs. - Nephrology on board, appreciate recs. - Plan for dialysis tuesday Acute Acalculous Cholecystitis Pt has positive Norman's sign, mildly elevated LFT's, and signs of acalculous cholecystitis on RUQ US. - Dr. Herron has been consulted and plans for lap jaguar today - Follow surgery recs Rhabdomyolysis CK of 9,286 on admission 100's today. - Will continue with PO hydration and dialysis per nephrology UTI Pt initially had leukocytosis with elevated bands, tachycardia, and was found to have E. coli UTI. UCx has grown E. coli that is pansensitive. Procalcitonin was initially elevated to 13 and has trended down to 11. - Zosyn day 6 - Kwok in place for strict I/O's - NS cancelled by Dr. Bradford 11/03 Severe Volume Depletion Unsure how long patient was down. Per family, patient had not eaten or drank for 3 days prior to admission. Patient required pressors on his first night of hospitalization, but has been off pressors since then. - resolved - Will continue w/ BMPs to monitor hydration status. - Will monitor urine output Toxic metabolic encephalopathy Possibly 2/2 opioid/meth abuse vs. uremia from acute renal failure vs. less likely sepsis from UTI/Acute Acalculous Cholecystitis. Ammonia 34 & BUN/Cr 105/ 11 upon arrival. Nephro and gen surg consulted in ED so patient could undergo emergency HD 2/2 ARF and EKG changes 2/2 hyperkalemia. Pt received HD 3 times since admission. s/p 3L NS boluses due to severe dehydration and rhabdo. UA has grown E. coli. Procalcitonin initially elevated at 13. Head CT negative. RUQ US consistent with acute acalculous cholecystitis -mental status improved - Dr. Avery with Pulm consulted, appreciate recs - Dr. Bradford with Nephro on board, appreciate recs - Zosyn day 6 Hyperkalemia, resolved K initially 6.8 with peaked T waves on EKG. Patient s/p Calcium gluconate, sodium bicarb, insulin/D50 & HD. Potassium now WNL. - Resolved - Will continue to trend w/ BMPs. Hx of EtOH abuse EtOH levels negative - IV Thiamine, PO folic acid - ASE protocol - IV lorazepam ordered PRN. Hx of Polysubstance abuse Pt positive for opioids, meth, and amphetamines on UDS. Pt denies any methampetamine use. Reports taking tylenol #3 for chronic joint pain. 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 Likely 2/2 E. coli UTI and Acute Acalculous Cholecystitis. Patient does have left shift with bandemia. Lactate WNL. procalcitonin elevated. Pt has continued to have diarrhea with possible melena. FOBT positive and fecal lactoferrin positive. C. diff negative - Continue Zosyn - GI consulted HepC A- positive for viral load, likely chronic, mildy elevated liver enzymes P- GI consulted, appreciate recs -fu outpatient with GI Normocytic anemia Likely anemia of chronic disease 2/2 liver disease. B12 WNL. - Monitor - transfuse as necessary - strict GERD precautions per GI HTN - Will continue to monitor. GERD - protonix <Grant Jeffers - Last Filed: 11/04/17 08:46> Attending Addendum - Attending Addendum Date/Time: 11/04/17 [id number] I personally evaluated the patient and discussed the management with Dr. Jeffers. I agree with the History, Examination, Assessment and Plan documented above with any addition or exceptions noted below. Patient will be going to surgery today for cholecystectomy and tunneled dialysis catheter. <Mini Lugo - Last Filed: 11/05/17 16:36>
[2017-11-04 06:40] LABS: Hemoglobin 9.1 g/dL (14.0-18.0); Mean Corpuscular HGB CONC 34.3 g/dL (32.0-36.0); Mean Corpuscular Hemoglobin 32.1 pg (27.0-31.0); Mean Corpuscular Volume 93.4 fL (78.0-98.0); Mean Platelet Volume 7.6 fL (7.4-10.4); Platelet Count 347 thou/uL (130-400); RBC Distribution Width 12.4 % (11.5-14.5); Red Blood Cell (RBC) Count 2.84 mill/uL (4.70-6.10); White Blood Cell (WBC) Count 13.6 thou/uL (4.8-10.8)
[2017-11-04 06:55] LABS: Anion Gap 18 mmol/L (10-20); BUN (Urea Nitrogen) 44 mg/dL (8.4-25.7); Band 4 % (5-11); Calc. Creatinine Clearance 13 mL/min (70-130); Calcium 7.8 mg/dL (7.8-10.44); Carbon Dioxide 22 mmol/L (22-29); Chloride 104 mmol/L (98-107); Estimated GFR-MDRD 10; Glucose 106 mg/dL (70-105); Hypochromia SLIGHT = 6-15 cells (100X) (0-5/hpf); Lymphocytes 5 % (21-51); MDiff Complete? YES; Monocytes 5 % (0-10); Neutrophil 86 % (42-75); PLT Morphology Comment Appears Adequate; Potassium 3.7 mmol/L (3.5-5.1); Sodium 140 mmol/L (136-145)
[2017-11-04] MEDS: Pantoprazole 40 MG VIAL IVP SCH (09:04)
[2017-11-04] MEDS: Folic Acid 1 MG TAB PO SCH (09:04)
[2017-11-04] MEDS: Saccharomyces boulardii 250 MG CAP PO SCH ×2 (09:04→21:06)
--- NOTE | 2017-11-04 10:39 | PRG ---
DATE OF SERVICE: 11/04/2017 This is a 57-year-old gentleman being seen for acute kidney injury, dialysis dependent. The patient denies any nausea, vomiting or chest pain. PHYSICAL EXAMINATION: GENERAL: Patient is awake, alert. VITAL SIGNS: Afebrile, pulse 60, breathing at 16, blood pressure 148/68. OBJECTIVE: See above. Awake, alert, in no acute distress. GENERAL APPEARANCE AND MENTAL STATUS: Fair. HEAD/NECK: Normocephalic. Atraumatic. EYES: EOMI. No deformity. EARS: Clear. No ulcers. NOSE: Intact. No lesions. MOUTH: Clear. No discharge. THROAT: Clear. No exudate. LUNGS: Clear. No crackles. CARDIAC: S1, S2. No rub. ABDOMEN: Benign. BS+. GENITALIA/RECTUM: Kwok absent. BACK/EXTREMITIES: Edema 0+ Ulcer- NEUROLOGICAL: Alert and motor intact. SKIN: Rash- Bruise- LYMPHATICS: Edema- Ulcer- LABORATORY: The patient's urine output was 350 mL. ASSESSMENT AND RECOMMENDATIONS: 1. Acute kidney injury, dialysis dependent. The patient remains oliguric. We will plan dialysis to [facility]. 2. Hypertension, stable. 3. Anemia, stable. 4. Medications based on glomerular filtration rate are appropriate.
[2017-11-04] MEDS ORDERED: CEFAZOLIN/Water 2 GM/20 ML SYRINGE ONE (12:32)
--- NOTE | 2017-11-04 12:42 | PDOC.CTH ---
Cardiology Progress Note - Subjective No complaints. No dizziness, LH syncope presyncope. HR increasing appropriately with exertion - Objective Vital Signs Temp Pulse Resp BP Pulse Ox 11/04/17 08:00 98.5 F 57 L 18 168/86 H 96 11/04/17 04:00 99.0 F 63 18 160/89 H 95 Admit Weight 138 lb 14.259 oz Weight 149 lb 4.8 oz 11/03/17 11/04/17 11/05/17 06:59 06:59 06:59 Intake Total 1537 720 Output Total 250 350 Balance 1287 370 - Physical Examination General/Neuro: alert & oriented x3, NAD Neck: carotid US brisk, no JVD present Lungs: CTA, unlabored respirations Heart: PMI normal, RRR Abdomen: NT/ND, soft Extremities: + femoral B - Labs Result Diagrams: 11/04/17 05:37 11/04/17 05:37 Troponin/CKMB CK-MB (CK-2) 11.6 ng/mL (0-6.6) H* 11/02/17 08:28 Troponin I Less than 0.010 ng/mL (< 0.028) 11/02/17 08:28 - Assessment/Plan 1. Bradycardia cholecystitis preop clearance Pt without complaints Given chronotropic competence, ok to proceed with surgery No new recs
[2017-11-04] MEDS ORDERED: Iothalamate Meglumine 60% 50 ML VIAL FS ONE (13:48)
[2017-11-04] MEDS ORDERED: Bupivacaine/Epinephrine 0.25% 30 ML VIAL ONE (13:48)
[2017-11-04] MEDS ORDERED: Sodium Chloride 0.9% 20 ML ONE (13:48)
[2017-11-04] MEDS ORDERED: Heparin 10,000 UNITS/1 ML VIAL ONE (13:48)
[2017-11-04] MEDS ORDERED: Lidocaine 2% 10 ML INJ ONE (13:48)
[2017-11-04] MEDS ORDERED: Famotidine/PF 20 mg/2ml Vial ONE (13:54)
[2017-11-04] MEDS ORDERED: Fentanyl 100 MCG/2 ML VIAL ONE (13:54)
[2017-11-04] MEDS ORDERED: Lidocaine 1% PF 5 ML VIAL ONE (14:18)
[2017-11-04] MEDS ORDERED: PROPOFOL 200 MG/20 ML VIAL ONE (14:18)
[2017-11-04] MEDS ORDERED: Meperidine HCl/PF 25 MG/ML VIAL SLOW IVP PRN (14:51)
[2017-11-04] MEDS ORDERED: Promethazine HCl 25 MG/ML VIAL SLOW IVP PRN (14:51)
[2017-11-04] MEDS ORDERED: Ondansetron HCl/PF 4 MG/2 ML Vial IVP PRN (14:51)
--- NOTE | 2017-11-04 15:37 | RAD ---
XR CHOLANGIOGRAM IN SURGERY: HISTORY: Cholecystectomy with cholangiogram. COMPARISON: Ultrasound gallbladder 11/01/16. FINDINGS: Spot images were obtained. The common bile duct is visualized. No definite filling defect. There i s contrast in the duodenum. IMPRESSION: No definite filling defect. POS: [facility]
[2017-11-04] MEDS ORDERED: SUGAMMADEX SODIUM 200 MG/2 ML VIAL ONE (16:03)
--- NOTE | 2017-11-04 18:10 | RAD ---
CHEST ONE VIEW: 11/04/17 HISTORY: Hemodialysis catheter placement. COMPARISON: 10/31/17. FINDINGS: Cardiac silhouette is magnified and upper limits of normal in size. Pulmonary vasculature is now engo rged. Mediastinum is midline. Tip of a left internal jugular dialysis type catheter overlies the supe rior vena cava. Bibasilar irregular parenchymal opacities, right greater than left. Small amount of fluid blunts each costophrenic angle. No evidence of pneumothorax. IMPRESSION: Right internal jugular dialysis catheter is in good radiographic position. Bibasilar infiltrates, right greater than left. Possibly related to bibasilar pneumonitis or pulmonar y vascular congestion, as there is also vascular engorgement and bilateral pleural fluid. Clinical co rrelation regarding other signs and symptoms of basilar pneumonitis is required. POS: [facility]
[2017-11-04] MEDS: Nicotine 14 MG PATCH TD SCH (18:31)
[2017-11-04] MEDS: Acetaminophen 325 MG TAB PO PRN (21:06)
[2017-11-04] MEDS ORDERED: HYDROcodone/Acetaminophen 5/325 mg Tablet PO PRN (21:49)
[2017-11-04] MEDS: HYDROcodone/Acetaminophen 5/325 mg Tablet PO PRN (22:21)
--- NOTE | 2017-11-05 01:03 | PRG ---
DATE OF SERVICE: 11/04/2017 REASON FOR CONSULTATION: Possible melena. SUBJECTIVE: Patient went for cholecystectomy earlier today and does have some residual right upper q uadrant abdominal pain centered around his incision sites; however, this is currently being managed w ith pain medications. He does state that he did have some darker stools earlier today consistent wit h the "black" stools that he has been having during this admission; however, it was at bedside as wel l and was brown in coloration. Otherwise denies any nausea, vomiting, fevers, chills, hematemesis, o r hematochezia. OBJECTIVE: VITAL SIGNS: Temperature 98.1, pulse 66, respiratory rate 18, satting 92% on room air, b lood pressure 167/82. LABORATORY DATA: CBC with a white blood cell count of 13.6, hemoglobin 9.1, hematocrit 26.5, platele ts 347. Chemistry with a sodium 140, potassium 3.7, chloride 104, CO2 of 22, BUN 44, creatinine 5.92 , glucose 106. IMAGING DATA: No current GI imaging is available for review. ASSESSMENT AND PLAN: The patient is a 57-year-old male with past medical history of hypertension, al cohol abuse, polysubstance abuse, gastroesophageal reflux disease, and recent diagnosis of chronic he patitis C presenting with possible melena. Possible melena: The patient was initially admitted on 10/30/2017 after being found down at home and was noted to have multiple medical problems on admission including anion gap metabolic acidosis, acu te renal failure as well as a significant anemia; however, he has had some downtrending of his H&H du ring this admission, but has since stabilized over the last 48-72 hours. During this hospitalization , he has complained of some darker colored stools, but upon visual confirmation by myself at bedside these are dark-brown colored stools, not necessarily black consistent with melena. Given the darker colored stools and relative stability of his H&H, active gastrointestinal bleeding cannot be less lik vikash at this time. Given his significant renal disease, I am more inclined to think that his anemia i s caused by either anemia of chronic disease versus anemia of renal disease rather than acute gastroi ntestinal blood loss. RECOMMENDATIONS: 1. I would continue to trend his H&H and transfuse as necessary to maintain an H&H of 7/. However , given the good possibility of iatrogenic anemia. I would try to minimize the volume of blood draws . 2. We would continue to monitor clinically for signs of active gastrointestinal bleeding. 3. We would continue PPI daily given symptoms of acid reflux. We will continue to follow. Please call with any questions.
[2017-11-05] MEDS: HYDROcodone/Acetaminophen 5/325 mg Tablet PO PRN ×5 (03:11→20:30)
[2017-11-05] MEDS: Piperacillin/Tazobactam 2.25 GM in Sodium Chloride 0.9% 100 ML IVPB SCH (05:26)
--- NOTE | 2017-11-05 05:55 | PDOC.FM ---
- Subjective Subjective: Pt feeling well this AM, complains of some mild abdominal tenderness after surgery, exacerbated by movement. Pt denies n/v - Objective Vital Signs & Weight: Vital Signs (12 hours) Temp Pulse Resp BP Pulse Ox 11/05/17 05:33 94 L 11/05/17 04:00 98.5 F 60 14 156/77 H 94 L 11/05/17 00:00 99.5 F 61 14 159/82 H 95 11/04/17 20:00 98.1 F 66 18 167/82 H 92 L Weight Admit Weight 63 kg Weight 67.721 kg Most Recent Monitor Data Heart Rate from ECG 59 NIBP 127/66 NIBP BP-Mean 93 Respiration from ECG 19 SpO2 96 I&O: 11/03/17 11/04/17 11/05/17 06:59 06:59 06:59 Intake Total 1537 720 680 Output Total 250 350 550 Balance 1287 370 130 Result Diagrams: 11/05/17 05:30 11/05/17 05:30 <Grant Jeffers - Last Filed: 11/05/17 10:28> - Objective Vital Signs & Weight: Vital Signs (12 hours) Temp Pulse Resp BP Pulse Ox 11/05/17 20:28 98.3 F 66 16 156/85 H 93 L 11/05/17 17:48 97.1 F L 62 18 141/77 H 95 11/05/17 11:51 97.4 F L 72 16 153/84 H 97 Weight Admit Weight 63 kg Weight 67.8 kg Most Recent Monitor Data Heart Rate from ECG 59 NIBP 127/66 NIBP BP-Mean 93 Respiration from ECG 19 SpO2 96 I&O: 11/04/17 11/05/17 11/06/17 06:59 06:59 06:59 Intake Total 720 1480 350 Output Total 350 1125 900 Balance 370 355 -550 Result Diagrams: 11/05/17 05:30 11/05/17 05:30 <Mini Lugo - Last Filed: 11/05/17 23:01> Phys Exam - Physical Examination Constitutional: NAD HEENT: moist MMs Respiratory: no wheezing, clear to auscultation bilateral Cardiovascular: RRR, no significant murmur Gastrointestinal: soft, non-tender incision clean/dry/intact Musculoskeletal: no edema, pulses present Psychiatric: normal affect Skin: no rash, normal turgor <Grant Jeffers - Last Filed: 11/05/17 10:28> Dx/Plan (1) Acute acalculous cholecystitis Code(s): K81.0 - ACUTE CHOLECYSTITIS Status: Acute (2) Acute renal failure Status: Acute Qualifiers: Acute renal failure type: unspecified Qualified Code(s): N17.9 - Acute kidney failure, unspecified (3) Anemia Code(s): D64.9 - ANEMIA, UNSPECIFIED Status: Acute (4) Drug abuse Code(s): F19.10 - OTHER PSYCHOACTIVE SUBSTANCE ABUSE, UNCOMPLICATED Status: Acute (5) Elevated LFTs Code(s): R94.5 - ABNORMAL RESULTS OF LIVER FUNCTION STUDIES Status: Acute (6) High anion gap metabolic acidosis Code(s): E87.2 - ACIDOSIS Status: Acute (7) Leukocytosis Code(s): D72.829 - ELEVATED WHITE BLOOD CELL COUNT, UNSPECIFIED Status: Acute (8) Rhabdomyolysis Code(s): M62.82 - RHABDOMYOLYSIS Status: Acute Qualifiers: Rhabdomyolysis type: non-traumatic Qualified Code(s): M62.82 - Rhabdomyolysis (9) Toxic metabolic encephalopathy Code(s): G92 - TOXIC ENCEPHALOPATHY Status: Acute (10) UTI (urinary tract infection) Status: Acute Qualifiers: Urinary tract infection type: acute cystitis (11) Volume depletion Code(s): E86.9 - VOLUME DEPLETION, UNSPECIFIED Status: Acute (12) GERD (gastroesophageal reflux disease) Code(s): K21.9 - GASTRO-ESOPHAGEAL REFLUX DISEASE WITHOUT ESOPHAGITIS Status: Chronic (13) HTN (hypertension) Code(s): I10 - ESSENTIAL (PRIMARY) HYPERTENSION Status: Chronic Qualifiers: Hypertension type: essential hypertension Qualified Code(s): I10 - Essential (primary) hypertension (14) History of alcohol abuse Code(s): Z87.898 - PERSONAL HISTORY OF OTHER SPECIFIED CONDITIONS Status: Chronic (15) Hyperkalemia Code(s): E87.5 - HYPERKALEMIA Status: Resolved - Plan Plan: Acute renal failure BUN /Cr 100/12.8 initially, has improved to 44/5.92. s/p HD as well as aggressive fluid resuscitation. UOP has been low at 30mL total in the past 24 hours - Will continue to trend CMPs. - Nephrology on board, appreciate recs. - Plan for dialysis today Acute Acalculous Cholecystitis Pt has positive Norman's sign, mildly elevated LFT's, and signs of acalculous cholecystitis on RUQ US. - Dr. Herron has been consulted - s/p lap jaguar - Follow surgery recs - pain controlled Rhabdomyolysis CK of 9,286 -->100's - Will continue with PO hydration and dialysis per nephrology - Is/Os UTI Pt initially had leukocytosis with elevated bands, tachycardia, and was found to have E. coli UTI. UCx has grown E. coli that is pansensitive. Procalcitonin was initially elevated to 13 and has trended down to 11. - Zosyn day 7, discontinue today - Kwok in place, dc today - NS cancelled by Dr. Bradford 11/03 Severe Volume Depletion Unsure how long patient was down. Per family, patient had not eaten or drank for 3 days prior to admission. Patient required pressors on his first night of hospitalization, but has been off pressors since then. - resolved - Will continue w/ BMPs to monitor hydration status. - Will monitor urine output Toxic metabolic encephalopathy Possibly 2/2 opioid/meth abuse vs. uremia from acute renal failure vs. less likely sepsis from UTI/Acute Acalculous Cholecystitis. Ammonia 34 & BUN/Cr 105/ 11 upon arrival. Nephro and gen surg consulted in ED so patient could undergo emergency HD 2/2 ARF and EKG changes 2/2 hyperkalemia. Pt received HD 3 times since admission. s/p 3L NS boluses due to severe dehydration and rhabdo. UA has grown E. coli. Procalcitonin initially elevated at 13. Head CT negative. RUQ US consistent with acute acalculous cholecystitis - resolved - Dr. Avery with Pulm consulted, appreciate recs - Dr. Bradford with Nephro on board, appreciate recs - s/p zosyn seven days Hyperkalemia, resolved K initially 6.8 with peaked T waves on EKG. Patient s/p Calcium gluconate, sodium bicarb, insulin/D50 & HD. Potassium now WNL. - Resolved - Will continue to trend w/ BMPs. Hx of EtOH abuse EtOH levels negative - IV Thiamine, PO folic acid - ASE protocol - IV lorazepam ordered PRN. Hx of Polysubstance abuse Pt positive for opioids, meth, and amphetamines on UDS. Pt denies any methampetamine use. Reports taking tylenol #3 for chronic joint pain. 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 B12 WNL. - Monitor - transfuse as necessary - GERD precautions per GI HTN - start amlodipine today GERD - protonix <Grant Jeffers - Last Filed: 11/05/17 10:28> Attending Addendum - Attending Addendum Date/Time: 11/05/17 0857 I personally evaluated the patient and discussed the management with Dr. Jeffers. I agree with the History, Examination, Assessment and Plan documented above with any addition or exceptions noted below. The patient is POD 1 s/p lap jaguar. He complains of abdominal soreness. Hemoglobin is stable at 9.2. Dialysis management per nephrology. <Mini Lugo - Last Filed: 11/05/17 23:01>
[2017-11-05 06:04] LABS: Anion Gap 17 mmol/L (10-20); BUN (Urea Nitrogen) 48 mg/dL (8.4-25.7); Calc. Creatinine Clearance 12 mL/min (70-130); Calcium 7.9 mg/dL (7.8-10.44); Carbon Dioxide 22 mmol/L (22-29); Estimated GFR-MDRD 9; Glucose 130 mg/dL (70-105); Potassium 3.7 mmol/L (3.5-5.1); Sodium 139 mmol/L (136-145)
[2017-11-05 06:09] LABS: Band 7 % (5-11); Eosinophils 1 % (0-10); Hemoglobin 9.2 g/dL (14.0-18.0); Lymphocytes 12 % (21-51); MDiff Complete? YES; Mean Corpuscular HGB CONC 34.1 g/dL (32.0-36.0); Mean Corpuscular Hemoglobin 31.9 pg (27.0-31.0); Mean Corpuscular Volume 93.6 fL (78.0-98.0); Mean Platelet Volume 7.5 fL (7.4-10.4); Monocytes 5 % (0-10); Neutrophil 74 % (42-75); PLT Morphology Comment Appears Adequate; Platelet Count 374 thou/uL (130-400); RBC Distribution Width 12.7 % (11.5-14.5); RBC Morphology Normal; Reactive Lymphocytes 1 % (0-10); Red Blood Cell (RBC) Count 2.87 mill/uL (4.70-6.10); White Blood Cell (WBC) Count 15.7 thou/uL (4.8-10.8)
[2017-11-05] MEDS: Amlodipine 10 MG TAB PO SCH (09:52)
[2017-11-05] MEDS: Saccharomyces boulardii 250 MG CAP PO SCH ×2 (09:52→20:29)
[2017-11-05] MEDS: Pantoprazole 40 MG VIAL IVP SCH (09:53)
[2017-11-05] MEDS: Folic Acid 1 MG TAB PO SCH (09:53)
[2017-11-05] MEDS ORDERED: Loratadine 10 MG TAB PO SCH (11:00)
[2017-11-05 11:46] LABS: Chloride 104 mmol/L (98-107)
--- NOTE | 2017-11-05 14:06 | PRG ---
DATE OF SERVICE: 11/04/2017 The patient is a 57-year-old male who is going to be undergoing laparoscopic cholecystectomy and tunn eled dialysis catheter placement today. He tolerated dialysis yesterday. We appreciate GI's recomme ndations. Patient continues to note mild soreness in his upper abdomen and explained that was to be expected with his gallbladder issues. Patient remain on PPI. We will follow up after with surgery r ecommendations.
--- NOTE | 2017-11-05 14:25 | PRG ---
DATE OF SERVICE: 11/05/2017 SUBJECTIVE: This is a 57-year-old gentleman being seen for acute kidney. The patient has nausea, vo miting or chest pain. OBJECTIVE: GENERAL: Patient is awake, alert. VITAL SIGNS: Afebrile, pulse 72, breathing 16, blood pressure 146/78. GENERAL APPEARANCE AND MENTAL STATUS: Fair. HEAD/NECK: Normocephalic. Atraumatic. EYES: EOMI. No deformity. EARS: Clear. No ulcers. NOSE: Intact. No lesions. MOUTH: Clear. No discharge. THROAT: Clear. No exudate. LUNGS: Clear. No crackles. CARDIAC: S1, S2. No rub. ABDOMEN: Benign. BS+. GENITALIA/RECTUM: Kwok absent. BACK/EXTREMITIES: Edema 0+ Ulcer- NEUROLOGICAL: Alert and motor intact. SKIN: Rash- Bruise- LYMPHATICS: Edema- Ulcer- LABORATORY: Show hemoglobin 9.2, creatinine 6.4. ASSESSMENT: 1. Acute kidney injury with chronic kidney disease stage 5, improved. 2. Acute tubular necrosis. 3. Hypertension, stable. 4. Anemia, stable. 4. Metabolic acidosis, stable. We will hold off on dialysis. We will follow renal function closely .
[2017-11-05] MEDS: Nicotine 14 MG PATCH TD SCH (15:55)
--- NOTE | 2017-11-05 17:25 | PDOC.CTH ---
<Florencia Muse - Last Filed: 11/05/17 17:23> Cardiology Progress Note - Subjective The pt seen and examined. No overnight events. No cardiac complaints. Intermittent discomfort to ABD. - Objective Vital Signs Temp Pulse Resp BP BP Pulse Ox 11/05/17 11:51 97.4 F L 72 16 153/84 H 97 11/05/17 09:53 97.4 F L 72 16 97 11/05/17 09:52 60 146/78 H 11/05/17 08:47 98 F 60 18 146/78 H 97 11/05/17 05:33 94 L Admit Weight 138 lb 14.259 oz Weight 149 lb 7.574 oz 11/04/17 11/05/17 11/06/17 06:59 06:59 06:59 Intake Total 720 1480 Output Total 350 1125 900 Balance 370 355 -900 - Physical Examination General/Neuro: alert & oriented x3 Neck: no JVD present Lungs: CTA Heart: RRR Abdomen: soft Extremities: other: (No edema) - Telemetry Telemetry Rhythm: JR 50-70s - Labs Result Diagrams: 11/05/17 05:30 11/05/17 05:30 Troponin/CKMB CK-MB (CK-2) 11.6 ng/mL (0-6.6) H* 11/02/17 08:28 Troponin I Less than 0.010 ng/mL (< 0.028) 11/02/17 08:28 - Assessment/Plan 1. Bradycardia - HR remains in 60-70s. 2. Cholecystitis with S/p Ex lap Hermelinda on 11/03/17 - stable 3. HTN - stable 4. 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 Anemia - worsening from yesterday MAR reviewed Review of Systems - Review of Systems Constitutional: reports: no symptoms reported EENTM: reports: no symptoms reported Respiratory: reports: no symptoms reported Cardiac (ROS): reports: no symptoms reported ABD/GI: reports: no symptoms reported : reports: no symptoms reported <Ayden Cleveland - Last Filed: 11/05/17 23:50> Cardiology Progress Note - Objective Vital Signs Temp Pulse Resp BP Pulse Ox 11/05/17 23:46 98.3 F 69 20 147/82 H 92 L 11/05/17 20:28 98.3 F 66 16 156/85 H 93 L 11/05/17 17:48 97.1 F L 62 18 141/77 H 95 11/05/17 11:51 97.4 F L 72 16 153/84 H 97 Admit Weight 138 lb 14.259 oz Weight 149 lb 7.574 oz 11/04/17 11/05/17 11/06/17 06:59 06:59 06:59 Intake Total 720 1480 350 Output Total 350 1125 900 Balance 370 355 -550 - Labs Result Diagrams: 11/05/17 05:30 11/05/17 05:30 Troponin/CKMB CK-MB (CK-2) 11.6 ng/mL (0-6.6) H* 11/02/17 08:28 Troponin I Less than 0.010 ng/mL (< 0.028) 11/02/17 08:28 - Assessment/Plan Pt. seen and evaluated by me.I agree with the A/P by the MANAGER STUDENT SERVICES. Chest clear
--- NOTE | 2017-11-05 18:43 | PRG ---
DATE OF SERVICE: 11/05/2017 The patient is status post laparoscopic cholecystectomy and placement of tunneled dialysis catheter. He is doing well. Pain is minimal, tolerating a regular diet, bowels are functioning. PHYSICAL EXAMINATION: VITAL SIGNS: Temperature 97, pulse 72, blood pressure 153/84. He is awake, alert, in no apparent di stress. No jaundice. LABORATORY DATA: Electrolytes are okay. His glucose is 130, creatinine 6.4, white count of 15, H&H 9 and 26, platelet count 374. ASSESSMENT: Doing well. PLAN: Continue medical treatment.
--- NOTE | 2017-11-05 22:46 | PRG ---
DATE OF SERVICE: 11/05/2017 REASON FOR CONSULTATION: Possible melena. SUBJECTIVE: Today, the patient states that he continues to have right upper quadrant abdominal pain after undergoing cholecystectomy yesterday, but is currently being managed with pain medications. He does state that he had some darker colored stools today, but they have not been black. Upon visual examination of his bedside commode again there were some softer-colored brown stools with it. Otherw ise, he denies any nausea, vomiting, fevers, chills, hematemesis, or hematochezia. PHYSICAL EXAMINATION: VITAL SIGNS: Temperature 98.3, pulse 66, blood pressure 156/85, respiratory rate 16, satting 93% on room air. GENERAL: Patient is lying in bed in no acute distress. Alert and oriented x4. CARDIOVASCULAR: Regular rate and rhythm. LUNGS: Clear to auscultation bilaterally. ABDOMEN: Normoactive bowel sounds, soft, nondistended. Tenderness to palpation in the right epigast addy and mid epigastric regions. EXTREMITIES: No cyanosis, clubbing, or edema. LABORATORY DATA: CBC with a white blood cell count of 15.7, hemoglobin 9.2, hematocrit 26.8, glucose 374. Chemistry with a sodium of 139, potassium 3.7, chloride 104, CO2 of 22, BUN 48, creatinine 6.4 3, glucose 130. IMAGING DATA: No current GI imaging is available for review. ASSESSMENT AND PLAN: The patient is a 57-year-old male with past medical history of hypertension, al cohol abuse, polysubstance abuse, gastroesophageal reflux disease, and recent diagnosis of chronic he patitis C, presenting with possible melena. Possible melena: The patient was initially admitted on 10/30/2017 after being found down at home and was noted to have multiple medical problems on admission including a significant anemia and while he did have some downtrending of his H&H during this admission that has since stabilized over the last 72 hours. During this hospitalization, he has complained of some darker colored stools that he descr ibed as dark black stools, but upon direct visualization by myself, these were more dark-brown stools as compared to melena. With stabilization of his H&H and the lack of black-colored bowel movements, the likelihood of active gastrointestinal bleeding is much less likely at this time. However, given his significant renal disease, the more likely explanation for his anemia would be anemia of chronic disease versus renal disease. RECOMMENDATIONS: 1. I would continue to trend H&H and transfuse as necessary to maintain an H&H of 09/17. However, I would try to minimize volume of blood draws. 2. We would continue to monitor clinically for signs of active gastrointestinal bleeding. 3. Would continue PPI daily for symptoms of acid reflux. We will sign off at this time. Please call with any additional questions.
--- NOTE | 2017-11-06 05:51 | PDOC.FM ---
- Subjective Subjective: Pt reports feeling well, continued but improved abdominal pain. Pt reports being able to ambulate to the bathroom and that he is urinating more. no cp no palpitations, no sob no cough, no fever/chills, no n/v - Objective Vital Signs & Weight: Vital Signs (12 hours) Temp Pulse Resp BP Pulse Ox 11/06/17 04:00 98.1 F 65 20 144/79 H 93 L 11/05/17 23:46 98.3 F 69 20 147/82 H 92 L 11/05/17 20:28 98.3 F 66 16 156/85 H 93 L 11/05/17 17:48 97.1 F L 62 18 141/77 H 95 Weight Admit Weight 63 kg Weight 64.1 kg Most Recent Monitor Data Heart Rate from ECG 59 NIBP 127/66 NIBP BP-Mean 93 Respiration from ECG 19 SpO2 96 I&O: 11/04/17 11/05/17 11/06/17 06:59 06:59 06:59 Intake Total 720 1480 590 Output Total 350 1125 4500 Balance 370 355 -3910 Result Diagrams: 11/05/17 05:30 11/05/17 05:30 <Grant Jeffers - Last Filed: 11/06/17 07:44> - Objective Vital Signs & Weight: Vital Signs (12 hours) Temp Pulse Resp BP BP Pulse Ox 11/06/17 12:32 98.2 F 69 18 150/79 H 96 11/06/17 08:38 66 161/86 H 11/06/17 08:32 97.5 F L 66 18 99 11/06/17 08:05 97.5 F L 66 18 161/86 H 99 Weight Admit Weight 63 kg Weight 64.1 kg Most Recent Monitor Data Heart Rate from ECG 59 NIBP 127/66 NIBP BP-Mean 93 Respiration from ECG 19 SpO2 96 I&O: 11/05/17 11/06/17 11/07/17 06:59 06:59 06:59 Intake Total 1480 590 Output Total 1125 4500 Balance 355 -3910 Result Diagrams: 11/06/17 11:29 11/06/17 11:28 <Mini Lugo - Last Filed: 11/06/17 16:33> Phys Exam - Physical Examination Constitutional: NAD HEENT: moist MMs, sclera anicteric Respiratory: no wheezing, clear to auscultation bilateral Cardiovascular: RRR, no significant murmur Gastrointestinal: soft, non-tender Musculoskeletal: pulses present Neurological: normal sensation Psychiatric: normal affect Skin: no rash, normal turgor <ZeyadGrant - Last Filed: 11/06/17 07:44> Dx/Plan (1) Acute acalculous cholecystitis Code(s): K81.0 - ACUTE CHOLECYSTITIS Status: Acute (2) Acute renal failure Status: Acute Qualifiers: Acute renal failure type: unspecified Qualified Code(s): N17.9 - Acute kidney failure, unspecified (3) Anemia Code(s): D64.9 - ANEMIA, UNSPECIFIED Status: Acute (4) Drug abuse Code(s): F19.10 - OTHER PSYCHOACTIVE SUBSTANCE ABUSE, UNCOMPLICATED Status: Acute (5) Elevated LFTs Code(s): R94.5 - ABNORMAL RESULTS OF LIVER FUNCTION STUDIES Status: Acute (6) High anion gap metabolic acidosis Code(s): E87.2 - ACIDOSIS Status: Acute (7) Leukocytosis Code(s): D72.829 - ELEVATED WHITE BLOOD CELL COUNT, UNSPECIFIED Status: Acute (8) Rhabdomyolysis Code(s): M62.82 - RHABDOMYOLYSIS Status: Acute Qualifiers: Rhabdomyolysis type: non-traumatic Qualified Code(s): M62.82 - Rhabdomyolysis (9) Toxic metabolic encephalopathy Code(s): G92 - TOXIC ENCEPHALOPATHY Status: Acute (10) UTI (urinary tract infection) Status: Acute Qualifiers: Urinary tract infection type: acute cystitis (11) Volume depletion Code(s): E86.9 - VOLUME DEPLETION, UNSPECIFIED Status: Acute (12) GERD (gastroesophageal reflux disease) Code(s): K21.9 - GASTRO-ESOPHAGEAL REFLUX DISEASE WITHOUT ESOPHAGITIS Status: Chronic (13) HTN (hypertension) Code(s): I10 - ESSENTIAL (PRIMARY) HYPERTENSION Status: Chronic Qualifiers: Hypertension type: essential hypertension Qualified Code(s): I10 - Essential (primary) hypertension (14) History of alcohol abuse Code(s): Z87.898 - PERSONAL HISTORY OF OTHER SPECIFIED CONDITIONS Status: Chronic (15) Hyperkalemia Code(s): E87.5 - HYPERKALEMIA Status: Resolved - Plan Plan: Acute renal failure BUN /Cr 100/12.8 initially, has improved to 44/5.92. s/p HD as well as aggressive fluid resuscitation. Dialysis held yesterday - Will continue to trend CMPs. - Nephrology on board, appreciate recs. - Possible dialysis today Acute Acalculous Cholecystitis Pt has positive Norman's sign, mildly elevated LFT's, and signs of acalculous cholecystitis on RUQ US. - Dr. Herron has been consulted - s/p lap jaguar - Follow surgery recs - pain controlled Rhabdomyolysis CK of 9,286 -->100's - Will continue with PO hydration and dialysis per nephrology - Is/Os UTI Pt initially had leukocytosis with elevated bands, tachycardia, and was found to have E. coli UTI. UCx has grown E. coli that is pansensitive. Procalcitonin was initially elevated to 13 and has trended down to 11. - Zosyn 7 days, completed Severe Volume Depletion, resolved Unsure how long patient was down. Per family, patient had not eaten or drank for 3 days prior to admission. Patient required pressors on his first night of hospitalization, but has been off pressors since then. - resolved - Will continue w/ BMPs to monitor hydration status. - Will monitor urine output Toxic metabolic encephalopathy, resolved Possibly 2/2 opioid/meth abuse vs. uremia from acute renal failure vs. less likely sepsis from UTI/Acute Acalculous Cholecystitis. Ammonia 34 & BUN/Cr 105/ 11 upon arrival. Nephro and gen surg consulted in ED so patient could undergo emergency HD 2/2 ARF and EKG changes 2/2 hyperkalemia. Pt received HD 3 times since admission. s/p 3L NS boluses due to severe dehydration and rhabdo. UA has grown E. coli. Procalcitonin initially elevated at 13. Head CT negative. RUQ US consistent with acute acalculous cholecystitis - resolved - Dr. Avery with Pulm consulted, appreciate recs - Dr. Bradford with Nephro on board, appreciate recs - s/p zosyn seven days Hyperkalemia, resolved K initially 6.8 with peaked T waves on EKG. Patient s/p Calcium gluconate, sodium bicarb, insulin/D50 & HD. Potassium now WNL. - Resolved - Will continue to trend w/ BMPs. Hx of EtOH abuse EtOH levels negative - IV Thiamine, PO folic acid - ASE protocol - IV lorazepam ordered PRN. Hx of Polysubstance abuse Pt positive for opioids, meth, and amphetamines on UDS. Pt denies any methampetamine use. Reports taking tylenol #3 for chronic joint pain. - Barrel Liner Leukocytosis - resolved HepC A- positive for viral load, likely chronic, mildy elevated liver enzymes P- GI consulted, appreciate recs -fu outpatient with GI, pt verbalized understanding Normocytic anemia Likely anemia of chronic disease 2/2 liver disease. B12 WNL. - Monitor - transfuse as necessary - GERD precautions per GI HTN - started amlodipine yesterday - will expect full bp response in 1-2 weeks -f/u outpt GERD - protonix <Grant Jeffers - Last Filed: 11/06/17 07:44> Attending Addendum - Attending Addendum Date/Time: 11/06/17 0732 I personally evaluated the patient and discussed the management with Dr. Jeffers. I agree with the History, Examination, Assessment and Plan documented above with any addition or exceptions noted below. The patient still has abdominal pain though he notes it is better than yesterday. He states the pain is around his incision sites. He has been up walking around his room. He notes increased urination. His WBC increased though he is afebrile and vital signs are stable. Will monitor for now. He just completed a course of zosyn. <Mini Lugo - Last Filed: 11/06/17 16:33>
[2017-11-06] MEDS: HYDROcodone/Acetaminophen 5/325 mg Tablet PO PRN ×3 (08:38→17:43)
[2017-11-06] MEDS: Saccharomyces boulardii 250 MG CAP PO SCH ×2 (08:38→21:52)
[2017-11-06] MEDS: Amlodipine 10 MG TAB PO SCH (08:38)
[2017-11-06] MEDS: Folic Acid 1 MG TAB PO SCH (08:39)
[2017-11-06] MEDS: Loratadine 10 MG TAB PO SCH (08:39)
[2017-11-06] MEDS: Pantoprazole 40 MG VIAL IVP SCH (08:39)
[2017-11-06] MEDS ORDERED: Cetirizine HCl 10 MG TAB PO SCH (09:00)
[2017-11-06 11:48] LABS: #Eosinphils 0.4 thou/uL (0.0-0.7); #Lymphocytes 1.6 thou/uL (1.20-3.40); #Monocytes 1.5 thou/uL (0.11-0.59); #Neutrophils 16.2 thou/uL (1.40-6.50); %Basophils 0.2 % (0.0-1.0); %Eosinophils 2.1 % (0.0-10.0); %Monocytes 7.7 % (0.0-10.0); Hemoglobin 10.4 g/dL (14.0-18.0); Mean Corpuscular HGB CONC 32.4 g/dL (32.0-36.0); Mean Corpuscular Hemoglobin 30.7 pg (27.0-31.0); Mean Corpuscular Volume 94.7 fL (78.0-98.0); Mean Platelet Volume 6.8 fL (7.4-10.4); Platelet Count 517 thou/uL (130-400); RBC Distribution Width 12.8 % (11.5-14.5); White Blood Cell (WBC) Count 19.8 thou/uL (4.8-10.8)
[2017-11-06 12:03] LABS: Anion Gap 15 mmol/L (10-20); BUN (Urea Nitrogen) 46 mg/dL (8.4-25.7); Calc. Creatinine Clearance 12 mL/min (70-130); Calcium 7.9 mg/dL (7.8-10.44); Carbon Dioxide 22 mmol/L (22-29); Chloride 103 mmol/L (98-107); Estimated GFR-MDRD 9; Glucose 89 mg/dL (70-105); Potassium 3.3 mmol/L (3.5-5.1); Sodium 137 mmol/L (136-145)
[2017-11-06] MEDS ORDERED: Potassium Chloride 20 MEQ TAB PO SCH (12:15)
--- NOTE | 2017-11-06 12:58 | PRG ---
DATE OF SERVICE: 11/06/2017 SUBJECTIVE: This is a 57-year-old gentleman being seen for acute kidney injury due to acute tubular necrosis, denies any nausea, vomiting, or chest pain. PHYSICAL EXAMINATION: GENERAL: Patient is awake and alert. VITAL SIGNS: Afebrile, pulse 68, breathing 16, and blood pressure 144/79. GENERAL APPEARANCE AND MENTAL STATUS: Fair. HEAD/NECK: Normocephalic. Atraumatic. EYES: EOMI. No deformity. EARS: Clear. No ulcers. NOSE: Intact. No lesions. MOUTH: Clear. No discharge. THROAT: Clear. No exudate. LUNGS: Clear. No crackles. CARDIAC: S1, S2. No rub. ABDOMEN: Benign. BS+. GENITALIA/RECTUM: Kwok absent. BACK/EXTREMITIES: Edema 0+ Ulcer- NEUROLOGICAL: Alert and motor intact. SKIN: Rash- Bruise- LABORATORY DATA: Hemoglobin 10.4, creatinine 6.3. ASSESSMENT AND RECOMMENDATIONS: 1. Chronic kidney disease, stage 5, stable due to acute tubular necrosis. 2. Hypertension, stable. 3. Hypokalemia, recommend 40 mEq potassium. 4. Metabolic acidosis, stable. 5. Nonoliguric. No indication for dialysis, can remove tunneled catheter if the creatinine is less than 4.
--- NOTE | 2017-11-06 14:08 | PDOC.CTH ---
<Florencia Muse - Last Filed: 11/06/17 14:10> Cardiology Progress Note - Subjective The pt seen and examined. No overnight events. No cardiac complaints. - Objective Vital Signs Temp Pulse Resp BP BP Pulse Ox 11/06/17 08:38 66 161/86 H 11/06/17 08:05 97.5 F L 66 18 161/86 H 99 11/06/17 04:00 98.1 F 65 20 144/79 H 93 L Admit Weight 138 lb 14.259 oz Weight 141 lb 5.061 oz 11/05/17 11/06/17 11/07/17 06:59 06:59 06:59 Intake Total 1480 590 Output Total 1125 4500 Balance 355 -3910 - Physical Examination General/Neuro: alert & oriented x3 Neck: no JVD present Lungs: CTA Heart: RRR Abdomen: soft Extremities: other: (No edema) - Telemetry Telemetry Rhythm: SR - Labs Result Diagrams: 11/06/17 11:29 11/06/17 11:28 Troponin/CKMB CK-MB (CK-2) 11.6 ng/mL (0-6.6) H* 11/02/17 08:28 Troponin I Less than 0.010 ng/mL (< 0.028) 11/02/17 08:28 - Assessment/Plan 1. Bradycardia - HR remains in 60-70s. 2. Cholecystitis with S/p Ex lap Hermelinda on 11/03/17 - stable 3. HTN - stable 4. Acute on CKD stage 5 - stable; holding HD by can worker 5. Anemia - stable 6. Hep C 7. ETOH and tobocco abuse MAR reviewed * From Cardiac standpoint, the pt is stable to d/c. The pt will follow up with Dr Mo within 2-4 wks. Review of Systems - Review of Systems Constitutional: reports: no symptoms reported EENTM: reports: no symptoms reported Respiratory: reports: no symptoms reported Cardiac (ROS): reports: no symptoms reported ABD/GI: reports: no symptoms reported : reports: no symptoms reported Musculoskeletal: reports: no symptoms reported <Ayden Cleveland - Last Filed: 11/07/17 10:11> Cardiology Progress Note - Objective Vital Signs Temp Pulse Resp BP BP Pulse Ox 11/07/17 08:28 75 151/80 H 11/07/17 08:00 98.7 F 75 16 151/80 H 98 11/07/17 03:32 98.2 F 81 16 133/76 97 Admit Weight 138 lb 14.259 oz Weight 136 lb 14.513 oz 11/06/17 11/07/17 11/08/17 06:59 06:59 06:59 Intake Total 590 480 Output Total 4500 3300 Balance -4197 -3873 - Labs Result Diagrams: 11/07/17 05:32 11/07/17 05:33 Troponin/CKMB CK-MB (CK-2) 11.6 ng/mL (0-6.6) H* 11/02/17 08:28 Troponin I Less than 0.010 ng/mL (< 0.028) 11/02/17 08:28 - Assessment/Plan Pt. seen and eval. by me. I agree with the A/P by the DYE LINE OPERATOR.
[2017-11-06] MEDS: Nicotine 14 MG PATCH TD SCH (15:50)
--- NOTE | 2017-11-06 16:31 | TCOM ---
The patient says that his pain is better, still having some pain. He is eating regular food, but he says he feels like it is hanging up as it goes down. His bowels are somewhat loose. PHYSICAL EXAMINATION: VITAL SIGNS: His temperature is 97.5, pulse 66, blood pressure 161/86. GENERAL: He looks good. Incisions look good. ASSESSMENT: Stable. PLAN: He is supposed to get dialysis tomorrow.
[2017-11-07] MEDS: HYDROcodone/Acetaminophen 5/325 mg Tablet PO PRN ×5 (02:41→22:54)
--- NOTE | 2017-11-07 05:24 | PDOC.FM ---
- Subjective Subjective: NAEO. Patient states he feels alright but does endorse some odynophagia that he says began yesterday. Says he feels it after he has swallowed his food and feels it in the top of his chest. Experiences it with both liquids and solids. Has not eaten too many solids in an attempt to avoid diarrhea. Denies any CP, N/ V, diarrhea, constipation. Also endorses some SOB with exertion. Has been voiding well and still having loose stools. - Objective MAR Reviewed: Yes Vital Signs & Weight: Vital Signs (12 hours) Temp Pulse Resp BP Pulse Ox 11/07/17 03:32 98.2 F 81 16 133/76 97 11/06/17 21:50 98.7 F 76 16 96 11/06/17 21:33 98.7 F 76 16 157/82 H 96 Weight Admit Weight 63 kg Weight 62.1 kg Most Recent Monitor Data Heart Rate from ECG 59 NIBP 127/66 NIBP BP-Mean 93 Respiration from ECG 19 SpO2 96 I&O: 11/05/17 11/06/17 11/07/17 06:59 06:59 06:59 Intake Total 1480 590 480 Output Total 1125 4500 3300 Balance 683 -5370 -6050 Result Diagrams: 11/07/17 05:32 11/07/17 05:33 <Laura Manzano - Last Filed: 11/07/17 11:41> - Objective Vital Signs & Weight: Vital Signs (12 hours) Temp Pulse Resp BP BP Pulse Ox 11/07/17 11:30 98.4 F 80 16 141/82 H 97 11/07/17 08:28 75 151/80 H 11/07/17 08:00 98.7 F 75 16 151/80 H 98 11/07/17 03:32 98.2 F 81 16 133/76 97 Weight Admit Weight 63 kg Weight 62.1 kg Most Recent Monitor Data Heart Rate from ECG 59 NIBP 127/66 NIBP BP-Mean 93 Respiration from ECG 19 SpO2 96 I&O: 11/06/17 11/07/17 11/08/17 06:59 06:59 06:59 Intake Total 590 480 Output Total 4500 3300 Balance -3910 -2820 Result Diagrams: 11/07/17 05:32 09/10/18 05:33 <Da Brooks - Last Filed: 11/07/17 13:12> Phys Exam - Physical Examination Constitutional: NAD HEENT: moist MMs, sclera anicteric Neck: supple, full ROM Respiratory: no wheezing, no rales, no rhonchi, clear to auscultation bilateral Cardiovascular: RRR, no significant murmur Gastrointestinal: soft, non-tender, no distention, positive bowel sounds Musculoskeletal: no edema Neurological: non-focal, moves all 4 limbs Psychiatric: normal affect, A&O x 3 Skin: no rash, normal turgor <ManzanoLaura - Last Filed: 11/07/17 11:41> Dx/Plan (1) Toxic metabolic encephalopathy Code(s): G92 - TOXIC ENCEPHALOPATHY Status: Acute (2) Volume depletion Code(s): E86.9 - VOLUME DEPLETION, UNSPECIFIED Status: Acute (3) Rhabdomyolysis Code(s): M62.82 - RHABDOMYOLYSIS Status: Acute Qualifiers: Rhabdomyolysis type: non-traumatic Qualified Code(s): M62.82 - Rhabdomyolysis (4) Acute renal failure Status: Acute Qualifiers: Acute renal failure type: unspecified Qualified Code(s): N17.9 - Acute kidney failure, unspecified (5) Elevated LFTs Code(s): R94.5 - ABNORMAL RESULTS OF LIVER FUNCTION STUDIES Status: Acute (6) History of alcohol abuse Code(s): Z87.898 - PERSONAL HISTORY OF OTHER SPECIFIED CONDITIONS Status: Chronic (7) GERD (gastroesophageal reflux disease) Code(s): K21.9 - GASTRO-ESOPHAGEAL REFLUX DISEASE WITHOUT ESOPHAGITIS Status: Chronic (8) HTN (hypertension) Code(s): I10 - ESSENTIAL (PRIMARY) HYPERTENSION Status: Chronic Qualifiers: Hypertension type: essential hypertension Qualified Code(s): I10 - Essential (primary) hypertension (9) High anion gap metabolic acidosis Code(s): E87.2 - ACIDOSIS Status: Acute (10) Leukocytosis Code(s): D72.829 - ELEVATED WHITE BLOOD CELL COUNT, UNSPECIFIED Status: Acute (11) Anemia Code(s): D64.9 - ANEMIA, UNSPECIFIED Status: Acute (12) Thrombocytopenia Code(s): D69.6 - THROMBOCYTOPENIA, UNSPECIFIED Status: Acute (13) Hyperkalemia Code(s): E87.5 - HYPERKALEMIA Status: Resolved - Plan Plan: 1. Acute renal failure - BUN /Cr 100/12.8 initially, has improved to 5.65 this AM. Slowly improving since admission. - Dialysis held yesterday per nephro recs. - Will continue to trend with QD CMPs. - Will possibly proceed with dialysis today pending nephro recs. 2. Acute Acalculous Cholecystitis - Post-op day #3 s/p lap jaguar. - Awaiting general surgery recs for discharge. - Will continue Garibaldi and tylenol PRN for pain control. 3. Rhabdomyolysis - Will continue to trend QD CK. Down to 100s from 9,000 on admission. - Will continue with PO hydration and dialysis per nephrology. - Will continue to monitor Is & Os. 4. UTI - Urine Cx + for neves-sensitive E. Coli. - s/p IV Zosyn x 7 days. 5. Severe Volume Depletion - Resolved. - However patient still reporting loose stool. Will consider adding PRN antidiarrheal since wilver studies were negative to avoid volume depletion. - Will continue to monitor hydration status w/ CMPs and monitoring Is & Os/ urine output. - Will continue with PO hydration. 6. Toxic metabolic encephalopathy - Resolved. - Dr. Avery with Pulm consulted, appreciate recs. - Dr. Bradford with Nephro on board, appreciate recs. 7. Hyperkalemia - Resolved. - Will continue to trend w/ QD CMPs. 8. Hx of EtOH abuse - Aware. - Will continue IV Thiamine & PO folic acid. - Will continue with ASE protocol & IV lorazepam PRN. 9. Hx of Polysubstance abuse - Will juvenile counselor regarding dangers of polysubstance abuse. 10. Leukocytosis - Resolved. - Will continue to monitor with QD CBCs. 11. Hep C - Positive for viral load, likely chronic, as patient has only mildly elevated LFTs. - GI consulted, appreciate recs. - Plan for outpatient f/u with GI, pt verbalized understanding. 12. Normocytic anemia - Likely anemia of chronic disease 2/2 liver disease. - Will continue to monitor with QD CBCs. - Will continue B1 & folic acid. - Will continue GERD precautions per GI. 13. HTN - Will continue amlodipine. - Will have patient f/u as outpatient regarding HTN control. 14. GERD - Will continue protonix. - Patient reporting odynophagia but able to drink and eat w/o problems. Consider outpatient w/u w/ possible endoscopy at this point. <Laura Manzano - Last Filed: 11/07/17 11:41> Attending Addendum - Attending Addendum Date/Time: 11/07/17 0931 I personally evaluated the patient and discussed the management with Dr. Manzano. I agree with the History, Examination, Assessment and Plan documented above with any addition or exceptions noted below. Patient here with ARF likely 2/2 ATN thought due to rhabdomyolysis associated with drug use. His mentation is at baseline. His renal function is improving and he is now in polyuric phase of ATN with expected continued improvement in renal function. GFR currently still at 10. His odynophagia has resolved ,but barium swallow has been ordered to further evaluated if he has any esophageal issues. WBC continues to trend up which could be due to his post-surgical inflammatory state, but will need to monitor closely. Afebrile and feeling well. Reactive thrombocytosis noted this AM as well. Cardiology has signed off the case. <Da Brooks - Last Filed: 11/07/17 13:12>
[2017-11-07 06:22] LABS: Anion Gap 13 mmol/L (10-20); BUN (Urea Nitrogen) 44 mg/dL (8.4-25.7); Calc. Creatinine Clearance 13 mL/min (70-130); Calcium 7.9 mg/dL (7.8-10.44); Carbon Dioxide 26 mmol/L (22-29); Chloride 104 mmol/L (98-107); Estimated GFR-MDRD 10; Glucose 97 mg/dL (70-105); Potassium 3.7 mmol/L (3.5-5.1); Sodium 139 mmol/L (136-145)
[2017-11-07 06:27] LABS: Band 17 % (5-11); Eosinophils 3 % (0-10); Hemoglobin 9.5 g/dL (14.0-18.0); Lymphocytes 6 % (21-51); MDiff Complete? YES; Mean Corpuscular HGB CONC 32.8 g/dL (32.0-36.0); Mean Corpuscular Hemoglobin 30.9 pg (27.0-31.0); Mean Corpuscular Volume 94.3 fL (78.0-98.0); Mean Platelet Volume 6.5 fL (7.4-10.4); Monocytes 5 % (0-10); Neutrophil 69 % (42-75); PLT Morphology Comment Appears Increased; Platelet Count 564 thou/uL (130-400); RBC Distribution Width 12.8 % (11.5-14.5); Red Blood Cell (RBC) Count 3.07 mill/uL (4.70-6.10); White Blood Cell (WBC) Count 22.3 thou/uL (4.8-10.8)
--- NOTE | 2017-11-07 07:24 | PDOC.GSPN ---
Surgery Progress Note: Subj - Subjective Narrative: Patient feels okay. He is sore at his incisions but this is getting better. His main complaint is difficulty eating. He feels like he initiates the swallow without problems but then the food gets stuck at the bottom and he has pain in his chest. This happens with both liquid and solid food. He describes the pain as burning. He states that he had problems with reflux and occasional dysphagia before his hospital admission but it is much worse now. It is limiting his ability to eat. The postprandial pain he was having in the right side has resolved although he still has to run to the bathroom after eating. The diarrhea is still present although he is starting to see solid pieces of stool. On exam, he has mild melissa-incisional tenderness in the right upper quadrant without rigidity rebound or guarding. His abdomen is otherwise nontender. Incisions are healing well and his lungs are clear. His white count is up today but he is afebrile. Stool studies are unremarkable except for lack of normal bowel nito. Assessment/plan: Patient is doing well following his laparoscopic cholecystectomy. From a surgical standpoint he is ready for discharge. The cause of his continued leukocytosis is unclear but his abdominal exam is benign. His renal function seems to be improving and his urine output has definitely rebounded. From Dr. Bradford's notes it does not appear that he plans any further dialysis as long as this trend continues. His creatinine is still over 4 so I will leave the tunneled catheter for now. His main complaint is dysphagia, so I would recommend asking GI to reevaluate him, or getting a barium swallow to evaluate this. Surgery Progress Note: Obj - Vital signs Vital signs: Vital Signs - Most Recent Temp Pulse Resp BP Pulse Ox 98.2 F 81 16 133/76 97 11/07/17 03:32 11/07/17 03:32 11/07/17 03:32 11/07/17 03:32 11/07/17 03:32 Surgery Progress Note: Results - Labs Result Diagrams: 11/07/17 05:32 11/07/17 05:33 Lab results: Laboratory Results - last 24 hr 11/07/17 11/07/17 05:32 05:33 WBC 22.3 H RBC 3.07 L Hgb 9.5 L Hct 29.0 L MCV 94.3 MCH 30.9 MCHC 32.8 RDW 12.8 Plt Count 564 H MPV 6.5 L Neutrophils % (Manual) 69 Band Neuts % (Manual) 17 H Lymphocytes % (Manual) 6 L Monocytes % (Manual) 5 Eosinophils % (Manual) 3 Plt Morphology Comment Appears Increased H Sodium 139 Potassium 3.7 Chloride 104 Carbon Dioxide 26 Anion Gap 13 BUN 44 H Creatinine 5.65 H Estimated GFR (MDRD) 10 Glucose 97 Calcium 7.9 - Radiology Interpretation CT scan - head Status: image reviewed by me, report reviewed by me
--- NOTE | 2017-11-07 07:52 | PDOC.CTH ---
Cardiology Progress Note - Subjective No complaints this morning except for pain with swallowing. States mainly occurs with large bolus and not liquids or small portion of food. No symptoms of bradycardia. HR more stable - Objective Vital Signs Temp Pulse Resp BP Pulse Ox 11/07/17 03:32 98.2 F 81 16 133/76 97 11/06/17 21:50 98.7 F 76 16 96 11/06/17 21:33 98.7 F 76 16 157/82 H 96 Admit Weight 138 lb 14.259 oz Weight 136 lb 14.513 oz 11/06/17 11/07/17 11/08/17 06:59 06:59 06:59 Intake Total 590 480 Output Total 4500 3300 Balance -3910 -5960 - Labs Result Diagrams: 11/07/17 05:32 11/07/17 05:33 Troponin/CKMB CK-MB (CK-2) 11.6 ng/mL (0-6.6) H* 11/02/17 08:28 Troponin I Less than 0.010 ng/mL (< 0.028) 11/02/17 08:28 - Assessment/Plan 1. Bradycardia cholecystitis preop clearance Renal failure CV status stable. Did well during surgery Pt has been monitor over the last 1 week with no symptoms and no malignant rhythms present. Outpatient observation recommended No new recs Fu as outpatient
[2017-11-07] MEDS: Folic Acid 1 MG TAB PO SCH (08:28)
[2017-11-07] MEDS: Saccharomyces boulardii 250 MG CAP PO SCH ×2 (08:28→21:24)
[2017-11-07] MEDS: Loratadine 10 MG TAB PO SCH (08:28)
[2017-11-07] MEDS: Pantoprazole 40 MG VIAL IVP SCH (08:28)
[2017-11-07] MEDS: Amlodipine 10 MG TAB PO SCH (08:28)
--- NOTE | 2017-11-07 11:48 | PRG ---
DATE OF SERVICE: 11/07/2017 SUBJECTIVE: This is a 57-year-old gentleman being seen for acute kidney injury. The patient remains nonoliguric. Patient denies any nausea, vomiting or chest pain. PHYSICAL EXAMINATION: GENERAL: Patient is awake. VITAL SIGNS: Afebrile, pulse 75, breathing 16, blood pressure 151/80. OBJECTIVE: See above. Awake, alert, in no acute distress. GENERAL APPEARANCE AND MENTAL STATUS: Fair. HEAD/NECK: Normocephalic. Atraumatic. EYES: EOMI. No deformity. EARS: Clear. No ulcers. NOSE: Intact. No lesions. MOUTH: Clear. No discharge. THROAT: Clear. No exudate. LUNGS: Clear. No crackles. CARDIAC: S1, S2. No rub. ABDOMEN: Benign. BS+. GENITALIA/RECTUM: Kwok absent. BACK/EXTREMITIES: Edema 0+ Ulcer- NEUROLOGICAL: Alert and motor intact. SKIN: Rash- Bruise- LYMPHATICS: Edema- Ulcer- LABORATORY: Hemoglobin 9.5, creatinine 5.6. ASSESSMENT AND RECOMMENDATIONS: 1. Acute kidney injury, improving. 2. Chronic kidney disease stage 5, 3. Acute tubular necrosis. 4. Hypertension. 5. Hypokalemia. Sepsis management per primary team.
--- NOTE | 2017-11-07 12:33 | RAD ---
ESOPHOGRAM AIR CONTRAST: Date: 11-07-17 History: Dysphagia. FINDINGS: Small hiatal hernia with small amount of gastroesophageal reflux. A 12 mm barium tablet traversed the esophagus without hold up. Normal primary and secondary parastasis. No evidence of obstruction. IMPRESSION: Small hiatal hernia. Small amount of gastroesophageal reflux. No significant abnormalities otherwise demonstrated. POS: [facility]
[2017-11-07] MEDS: Nicotine 14 MG PATCH TD SCH (14:36)
[2017-11-07] MEDS: Calcium Carbonate 500 MG ChewTAB PO PRN (18:25)
[2017-11-08] MEDS: HYDROcodone/Acetaminophen 5/325 mg Tablet PO PRN ×2 (03:10→13:55)
[2017-11-08 04:45] VITALS: TEMP 98.5
--- NOTE | 2017-11-08 05:21 | PDOC.FM ---
- Objective Vital Signs & Weight: Vital Signs (12 hours) Temp Pulse Resp BP Pulse Ox 11/08/17 04:43 98.5 F 85 16 147/71 H 94 L 11/07/17 20:15 99.2 F 86 18 94 L 11/07/17 20:10 99.2 F 86 18 137/68 94 L Weight Admit Weight 63 kg Weight 62.1 kg Most Recent Monitor Data Heart Rate from ECG 59 NIBP 127/66 NIBP BP-Mean 93 Respiration from ECG 19 SpO2 96 I&O: 11/06/17 11/07/17 11/08/17 06:59 06:59 06:59 Intake Total 465 821 0658 Output Total 4500 3300 Balance -3910 -2820 1200 Result Diagrams: 11/07/17 05:32 11/07/17 05:33 Dx/Plan (1) Toxic metabolic encephalopathy Code(s): G92 - TOXIC ENCEPHALOPATHY Status: Acute (2) Volume depletion Code(s): E86.9 - VOLUME DEPLETION, UNSPECIFIED Status: Acute (3) Rhabdomyolysis Code(s): M62.82 - RHABDOMYOLYSIS Status: Acute Qualifiers: Rhabdomyolysis type: non-traumatic Qualified Code(s): M62.82 - Rhabdomyolysis (4) Acute renal failure Status: Acute Qualifiers: Acute renal failure type: unspecified Qualified Code(s): N17.9 - Acute kidney failure, unspecified (5) Elevated LFTs Code(s): R94.5 - ABNORMAL RESULTS OF LIVER FUNCTION STUDIES Status: Acute (6) History of alcohol abuse Code(s): Z87.898 - PERSONAL HISTORY OF OTHER SPECIFIED CONDITIONS Status: Chronic (7) GERD (gastroesophageal reflux disease) Code(s): K21.9 - GASTRO-ESOPHAGEAL REFLUX DISEASE WITHOUT ESOPHAGITIS Status: Chronic (8) HTN (hypertension) Code(s): I10 - ESSENTIAL (PRIMARY) HYPERTENSION Status: Chronic Qualifiers: Hypertension type: essential hypertension Qualified Code(s): I10 - Essential (primary) hypertension (9) High anion gap metabolic acidosis Code(s): E87.2 - ACIDOSIS Status: Acute (10) Leukocytosis Code(s): D72.829 - ELEVATED WHITE BLOOD CELL COUNT, UNSPECIFIED Status: Acute (11) Anemia Code(s): D64.9 - ANEMIA, UNSPECIFIED Status: Acute (12) Thrombocytopenia Code(s): D69.6 - THROMBOCYTOPENIA, UNSPECIFIED Status: Acute (13) Hyperkalemia Code(s): E87.5 - HYPERKALEMIA Status: Resolved - Plan Plan: 1. Acute renal failure - BUN /Cr 100/12.8 initially, has improved to ? this AM. - Will continue to hold dialysis per nephro recs as long as patient continues to make urine, which he has. - Will continue to trend with QD CMPs to monitor renal function. 2. Acute Acalculous Cholecystitis - Post-op day #4 s/p lap jaguar. - Surgery cleared for d/c yesterday. - Will continue [place] and tylenol PRN for pain control. Will consider stopping discharging on a different PO pain medication given patient's h/o polysubstance abuse. 3. Rhabdomyolysis - No longer trending as last measure was down to the 100s and patient continues to stay well-hydrated based on UO and improving renal function. - Will continue with PO hydration and dialysis PRN per nephrology recs. - Will continue to monitor Is & Os. 4. UTI - Resolved. - Urine Cx + for neves-sensitive E. Coli but s/p IV zosyn 7-day course. - Procal 0.49 yesterday down from 13 on admission. Patient remained afebrile overnight. 5. Severe Volume Depletion - Resolved. - Will consider adding PRN antidiarrheal agent to avoid volume depletion?. - Will continue to monitor hydration status w/ CMPs and UO. - Will continue with PO hydration. 6. Toxic metabolic encephalopathy - Resolved. - Dr. Avery with Pulm consulted, appreciate recs. - Dr. Bradford with Nephro on board, appreciate recs. 7. Hyperkalemia - Resolved. - Will continue to trend w/ QD CMPs. 8. Hx of EtOH abuse - Aware. - Will continue IV Thiamine & PO folic acid. - Will continue with ASE protocol & IV lorazepam PRN. 9. Hx of Polysubstance abuse - Will loan counselor regarding dangers of polysubstance abuse. 10. Leukocytosis - Slight increase in WBC yesterday compared to Tuesday. However, procal was only 0.49 down from 13 on admission and patient remained afebrile overnight. Likely not 2/2 an infectious etiology. - Will continue to monitor with QD CBCs. 11. Hep C - Positive for viral load, likely chronic, as patient has only mildly elevated LFTs. - GI consulted, appreciate recs. - Plan for outpatient f/u with GI, pt verbalized understanding. 12. Normocytic anemia - Likely anemia of chronic disease 2/2 liver disease. - Will continue to monitor with QD CBCs. - Will continue B1 & folic acid. - Will continue GERD precautions per GI. 13. HTN - Will continue amlodipine. - Will have patient f/u w/ [facility] in 2-4 weeks as outpatient per cards recommendation regarding HTN control. 14. GERD - Barium swallow from yesterday confirmed small amount of reflux in esophagus. - Will continue protonix. Dispo:
[2017-11-08 06:13] LABS: Anion Gap 15 mmol/L (10-20); BUN (Urea Nitrogen) 40 mg/dL (8.4-25.7); Calc. Creatinine Clearance 16 mL/min (70-130); Calcium 8.1 mg/dL (7.8-10.44); Carbon Dioxide 25 mmol/L (22-29); Chloride 99 mmol/L (98-107); Estimated GFR-MDRD 14; Glucose 88 mg/dL (70-105); Potassium 3.5 mmol/L (3.5-5.1); Sodium 135 mmol/L (136-145)
[2017-11-08 11:22] LABS: #Eosinphils 0.2 thou/uL (0.0-0.7); #Lymphocytes 2.2 thou/uL (1.20-3.40); #Monocytes 1.5 thou/uL (0.11-0.59); #Neutrophils 17.4 thou/uL (1.40-6.50); %Basophils 0.2 % (0.0-1.0); %Lymphocytes 10.4 % (21.0-51.0); %Monocytes 6.9 % (0.0-10.0); %Neutrophils 81.4 % (42.0-75.0); Hemoglobin 10.8 g/dL (14.0-18.0); Mean Corpuscular HGB CONC 32.2 g/dL (32.0-36.0); Mean Corpuscular Hemoglobin 30.7 pg (27.0-31.0); Mean Corpuscular Volume 95.2 fL (78.0-98.0); Mean Platelet Volume 6.3 fL (7.4-10.4); Platelet Count 813 thou/uL (130-400); RBC Distribution Width 12.8 % (11.5-14.5); Red Blood Cell (RBC) Count 3.52 mill/uL (4.70-6.10); White Blood Cell (WBC) Count 21.3 thou/uL (4.8-10.8)
[2017-11-08] MEDS: Amlodipine 10 MG TAB PO SCH (12:13)
[2017-11-08] MEDS: Folic Acid 1 MG TAB PO SCH (12:14)
[2017-11-08] MEDS: Loratadine 10 MG TAB PO SCH (12:15)
[2017-11-08] MEDS: Saccharomyces boulardii 250 MG CAP PO SCH (12:15)
[2017-11-08] MEDS: Pantoprazole 40 MG VIAL IVP SCH (12:15)
--- NOTE | 2017-11-08 12:58 | PRG ---
DATE OF SERVICE: 11/08/2017 For full progress note details, please see Dr. Laura Manzano's written progress note in the patient' s chart. In brief, this patient is a 57-year-old gentleman who was initially admitted with encephalopathy [facility] due to uremia and acute renal failure in the setting of rhabdomyolysis and polysubstance abuse. Over the last few days, the patient has been doing well. This morning he reports that he has some mi nimal pain in his abdomen associated with his incisions from his cholecystectomy, but otherwise feeli ng well. He continues to ambulate around the room and continues to urinate frequently. The barrier to his discharge has been a return of renal function with decreasing creatinine and increased urine o utput we have been seeing over the last couple days. PLAN: The plan for the patient is to recheck a creatinine this afternoon and discussed the case with patient's air filler, Dr. Bradford. If his return creatinine is near 4, we will consider discharge af ter speaking with Dr. Bradford and confirming that. Dr. Bradford has indicated to me that the patient will n eed to follow up with him in clinic in the next 2 weeks, but that there is no indication or plan to d o any repeat dialysis. The patient does have an elevation in his white blood count that has been per sistent over the last couple days. However, there is no change in the neutrophil percentage and the patient has remained afebrile throughout the hospitalization. We suspect at this time that this is l ikely secondary to his inflammatory process and sepsis.
[2017-11-08 14:41] LABS: Band 1 % (5-11); Lymphocytes 7 % (21-51); Monocytes 10 % (0-10); Neutrophil 82 % (42-75)
[2017-11-08 14:42] LABS: PLT Morphology Comment Appears Increased; Polychromasia SLIGHT = 2-3 cells (100X) (0-2/hpf)
[2017-11-08 15:02] LABS: Anion Gap 15 mmol/L (10-20); BUN (Urea Nitrogen) 35 mg/dL (8.4-25.7); Calc. Creatinine Clearance 18 mL/min (70-130); Carbon Dioxide 26 mmol/L (22-29); Chloride 99 mmol/L (98-107); Estimated GFR-MDRD 16; Glucose 97 mg/dL (70-105); Potassium 3.8 mmol/L (3.5-5.1); Sodium 136 mmol/L (136-145)
[2017-11-08] MEDS: Nicotine 14 MG PATCH TD SCH (16:29)
[2017-11-08 18:18] VITALS: BP 131/71
--- NOTE | 2017-11-08 18:58 | PRG ---
DATE OF SERVICE: 11/08/2017 SUBJECTIVE: This is a 57-year-old gentleman being seen for acute kidney injury, dialysis dependent d ue to acute tubular necrosis. The patient denies any nausea, vomiting, or chest pain. PHYSICAL EXAMINATION: GENERAL: Patient is awake, alert. VITAL SIGNS: Afebrile, pulse 85, breathing 16, blood pressure 137/68. GENERAL APPEARANCE AND MENTAL STATUS: Fair. HEAD/NECK: Normocephalic. Atraumatic. EYES: EOMI. No deformity. EARS: Clear. No ulcers. NOSE: Intact. No lesions. MOUTH: Clear. No discharge. THROAT: Clear. No exudate. LUNGS: Clear. No crackles. CARDIAC: S1, S2. No rub. ABDOMEN: Benign. BS+. GENITALIA/RECTUM: Kwok absent. BACK/EXTREMITIES: Edema 0+ Ulcer- NEUROLOGICAL: Alert and motor intact. SKIN: Rash- Bruise- LABORATORY DATA: Hemoglobin 10.8, potassium 3.8, creatinine 3.9. ASSESSMENT AND RECOMMENDATIONS: 1. Acute kidney injury. 2. Chronic kidney disease stage IV, improved. 3. Acute tubular necrosis, improved. 4. Hypertension, stable. 3. Anemia, stable. The patient can have the tunneled catheter removed today and can be discharged and follow up in 1 wee k. He should have biweekly labs. Advised adequate hydration based on urine output. This was explai jaqueline to the patient at length.
--- NOTE | 2017-11-09 14:34 | DIS-2 ---
DATE OF ADMISSION: 10/30/2017 DATE OF DISCHARGE: 11/08/2017. ADMITTING ATTENDING: Dr. Bonny Lange. DISCHARGE ATTENDING: Dr. Da Brooks. CONSULTATIONS: 1. Nephrology, Dr. Jim Bradford. 2. Pulmonology, Dr. Arthur Avery. 3. General surgery, Dr. Curtis Herron. 4. Cardiology, Dr. Calixto Mo. PROCEDURES: 1. Brain CT significant for no acute intracranial abnormality. 2. Chest x-ray significant for an ill-defined density overlying the right upper lobe, questionable for artifact with the rest of the lungs, appearing clear. 3. Right femoral hemodialysis catheter placement with ultrasound guidance. 4. Chest x-ray on 10/31/2017, significant for an opacity similar to what was shown on 10/30/2017, which may reflect a confluence of shadows. 5. Abdominal ultrasound, suspicious for acute acalculous cholecystitis. 6. Bilateral upper extremity venous mapping. 7. Cholecystectomy with cholangiogram. 8. Chest x-ray on 11/04/2017 for hemodialysis catheter placement showing a right internal jugular dialysis catheter in good radiographic position. 9. Barium swallow significant for minimal esophageal reflux and a small hiatal hernia. ADMISSION DIAGNOSES: 1. Toxic metabolic encephalopathy most likely 2/2 profound uremia from ARF. 2. Acute renal failure likely 2/2 ATN from rhabdomyolysis. 3. Rhabdomyolysis. 4. Volume depletion. 5. Elevated liver function tests. 6. High anion gap metabolic acidosis. 7. Leukocytosis. 8. Anemia. 9. Thrombocytopenia. 10. Hyperkalemia. 11. Urinary tract infection. 12. Sacral decubitus ulcer. 13. Acute acalculous cholecystitis. 14. Hepatitis C SECONDARY DIAGNOSES: 1. History of alcohol abuse. 2. Gastroesophageal reflux disease. 3. Hypertension. 4. History of drug abuse. DISCHARGE MEDICATIONS: 1. Norvasc 10 mg p.o. daily. 2. Folic acid 1 mg p.o. daily. 3. Claritin 10 mg p.o. daily. 4. Melatonin 3 mg p.o. at bedtime p.r.n. 5. Tylenol #3 with codeine 300 mg/30 mg tablet every 6 hours p.r.n. 6. Neurontin 300 mg p.o. t.i.d. 7. Omeprazole 20 mg p.o. daily. DISCONTINUED MEDICATIONS: Lisinopril 10 mg p.o. daily. HISTORY OF PRESENT ILLNESS AND HOSPITAL COURSE: The patient is a 57 year-old male with a past medical history significant for hypertension, GERD, alcohol abuse and polysubstance abuse who was transferred from an outside ER or emergency HD 2/2 ARF and hyperkalemia after being found down at home covered in vomit. Upon arrival to our ED, he was noted to be hemodynamically stable with a blood pressure of 114/54, heart rate of 98 and was satting 97% on room air; however, the patient was noted to be significantly altered and history was unable to be obtained per the patient. Routine labs were drawn on presentation to the ED which were significant for an elevated white blood count of 15.3. The patient was also noted to be in acute renal failure with a BUN and creatinine of 105 and 11. His potassium was noted to be elevated at 6.0 as well as his ammonia level at 34. The patient's urine drug screen was also positive for opiates, amphetamines and methamphetamines and his UA was significant for 4+ bacteria. After arriving to our ED, the patient was given 2 grams of IV Rocephin, 1 amp of calcium gluconate, and a liter of normal saline. Nephrology and General Surgery were consulted in the ED for emergency hemodialysis via a temporary dialysis catheter. Dr. Herron with General Surgery was able to place a temporary hemodialysis access in the ED and the patient underwent approximately 45 minutes of hemodialysis. Dialysis was cut short after the patient was noted to have a significantly elevated CK of 9286 which was more suggestive of rhabdomyolysis secondary to severe volume depletion being the source of his ARF. Dr. Avery with pulmonology was then consulted and recommended aggressive IV fluid hydration with normal saline at 200 mL/hour. The patient was then admitted to the CCU and sedated wtih haldol, ativan, and precedex 2/2 agitation and combativeness for close observation overnight. Regarding the patient's toxic metabolic encephalopathy, it was most likely due to multiple factors including his significant uremia, severe volume depletion, and suspected sepsis from a UTI. A head CT in the ED was negative for any acute intracranial process and the patient was noted to improve back to his baseline mental status by the date of discharge after aggressive treatment of his uremia, rhabdomyolysis, ARF, and severe volume depletion with IVFs and IV antibiotics with Zosyn for his UTI. Regarding the patient's acute renal failure, the patient's BUN and creatinine were trended daily over the course of his hospitalization, he was continued on aggressive IV fluid hydration until he was able to maintain hydration adequately p.o. Nephrology continued to follow the patient for the entire duration of his hospital stay and recommended that his creatinine go down to at least 4 or less before clearing the patient for discharge. By the date of discharge, the patient's creatinine had gone down to 3.91 with a BUN of 35. The patient was instructed to follow up with Nephrology before the end of the week and to continue with close followup on an outpatient basis. Regarding the patient's hyperkalemia, the patient's potassium was noted to be elevated at 6.8. Upon presentation to the outside ED, it did come down to 6.0 at the time the patient presented at our ED. The patient underwent 3 rounds of dialysis in total during the course of his hospital stay and by the date of discharge, the potassium was within normal limits at 3.8. Regarding the patient's UTI. His urine culture was significant for an infection with neves-sensitive E. Coli. The patient received IV Zosyn for 7 days during his hospitalization resulting is resolution of his infection. Regarding the patient's acute acalculous cholecystitis, an abdominal ultrasound was ordered on 11/01/2017 as the patient continued to complain of persistent abdominal pain. Ultrasound was significant for suspicious acalculous cholecystitis and General Surgery, Dr. Curtis Herron was consulted once again to evaluate the patient. After evaluating the patient, Dr. Curtis Herron proceeded with a laparoscopic cholecystectomy on 11/03/2017. The patient tolerated the procedure well and recovered quickly without any complications. Also, of note, Cardiology, Dr. Calixto Mo, was consulted on 2017 after the patient became bradycardic before his laparoscopic cholecystectomy. The patient was ambulated that same day and his heart rate was noted to increase up to the 70s and 80s and got as high as 90s during the coughing spell. He was determined to be asymptomatic at that time; however, Cardiology did recommend delaying his surgery for 1 day and to observe him overnight on telemetry for any further dysrhythmias. Cardiology continued to follow the patient up until the day prior to discharge during which they signed off and recommended follow up on an outpatient basis. Regarding the patient's rhabdomyolysis, CK on admission was significantly elevated at 9286, but continued to downtrend with aggressive IV fluid replacement and hydration and then resolved by the date of discharge. Regarding the patient's elevated LFTs, the patient's hepatitis C antibody was noted to be positive in the routine testing; however, these could have been exacerbated by shock liver from severe volume depletion as well as the patient' s significant heavy alcohol use; however, the hepatitis C viral load was markedly elevated with further testing and the patient was referred for outpatient followup with GI regarding treatment for this and verbalized understanding prior to discharge. Testing for other infectious diseases, HIV and RPR were negative. Regarding the patient's GERD, the patient noted some odynophagia one day prior to discharge, so a barium swallow was ordered; however, this study was notable only for a small hiatal hernia and some small changes consistent with GERD. The patient was kept on GI prophylaxis with Protonix with the remainder of his hospital stay and recommended to continue on this medication on an outpatient basis upon discharge. DISPOSITION: Stable. DISCHARGE INSTRUCTIONS: 1. Location: Home. 2. Diet: Heart healthy diet. 3. Activity: As tolerated. No restrictions. 4. Followup: The patient was instructed to follow up with General Surgery, Dr. Curtis Herron within 2-3 weeks following discharge as well as Nephrology with Dr. Jim Bradford within 3 days following discharge and following with his primary care physician, Dr. Jaylene Strange within 7 days following discharge. [facility]
--- NOTE | 2017-11-09 18:06 | PDOC.OP ---
Operative Note - Operative Note Operative Note: PROCEDURE: Placement of right internal jugular tunneled hemodialysis catheter with ultrasound and fluoroscopic guidance, and laparoscopic cholecystectomy with intraoperative cholangiogram. SURGEON: Curtis Herron M.D. DATE OF PROCEDURE: 11/04/2017 PREOPERATIVE DIAGNOSIS: Acute renal failure and acalculous cholecystitis. POSTOPERATIVE DIAGNOSIS: Acute renal failure and acalculous cholecystitis. HISTORY: Patient who presented septic with acute renal failure. He has been on dialysis via a femoral dialysis catheter since his admission. 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 In addition he has been diagnosed with acalculous cholecystitis and laparoscopic cholecystectomy has been recommended. This had to be delayed a couple days for cardiac clearance and he has been maintained on antibiotics in the interim. His transaminases were slightly elevated so a cholangiogram was recommended as well to rule out occult choledocholithiasis. PROCEDURE: After informed consent was obtained and appropriate preoperative antibiotics were administered, the patient was taken to the Operating Room, placed in the supine position and general endotracheal anesthesia care was administered. The neck and chest were prepped and draped in a standard sterile fashion and the patient placed in Trendelenburg position. A sterile ultrasound probe was used to identify the patent compressible right IJ vein which was accessed under direct ultrasound guidance. A wire was threaded through the needle and confirmed by ultrasound to be within the patent compressible vessel with the tip in the vena cava by fluoroscopy. Local anesthesia was infused to the skin and subcutaneous tissues of the right neck and chest. An infraclavicular incision was made and a catheter tunneled from the infraclavicular to the right IJ access site. The right IJ was sequentially dilated over the wire following which a dilator and sheath were placed over the wire and the dilator and wire removed leaving the sheath in place. The catheter was tunneled through the sheath which was then split and removed leaving the catheter in place. This was confirmed by fluoroscopy to be in good position in the superior vena cava with no kinking of the course of the catheter. Both ports easily aspirated dark venous nonpulsatile blood and easily flushed without resistance. Heparin was instilled to the quantity specified on the hub , and the hub was secured to the skin with 3-0 nylon sutures. The skin incision at the neck was closed in two layers with 4-0 Monocryl suture and Dermabond dressings were placed. The skin at the exit site was snugged up around the catheter with 4-0 Monocryl suture and Dermabond was placed there as well. Once the Dermabond was dry, a Biopatch and Tegaderm dressing was placed at the exit site. Attention was then turned to the laparoscopic cholecystectomy. The stomach was decompressed with an OG tube and the abdomen was prepped and draped in standard sterile fashion. Local anesthesia was infused to the skin and subcutaneous tissues at the umbilical level. A transverse skin incision was made. The fascia was elevated and a Veress needle was placed into the abdominal cavity without difficulty. Opening pressure was less than 5 and carbon dioxide gas easily insufflated to an intra-abdominal pressure of 15, which the patient tolerated well. The Veress needle was withdrawn and a Ivins port advanced under direct vision. The abdominal cavity was carefully examined. There was no evidence of Veress needle or of trocar injury. Local anesthesia was infused to the skin and subcutaneous tissues at the epigastric, right upper quadrant, and right lateral abdominal sites and trocars were placed under direct vision of the laparoscope. The gallbladder was noted to be white walled and edematous but without significant adhesions. There was ascitic fluid in the right upper quadrant but the liver did not appear cirrhotic and it was felt that this was likely inflammatory in nature. The fundus of the gallbladder was grasped and retracted superiorly. The infundibulum was grasped and retracted laterally. The serosa was stripped inferiorly at the level of the neck of the gallbladder exposing the cystic duct and artery which were traced clearly to their insertion in the gallbladder. These were dissected free circumferentially and the cystic duct was clipped at the level of the neck of the gallbladder. The cystic artery was clipped but not divided. An incision was made in the cystic duct inferior to the clip and the cystic duct was palpated with no stones palpable. Clear bile was seen to flow from the cystic duct incision. A cholangiogram catheter was introduced and placed into the cystic duct and secured with a clip. A cholangiogram was obtained which showed an adequate length of cystic duct. There was normal filling of the common bile duct with free flow of contrast into the duodenum. There was normal retrograde flow into the common hepatic duct beyond the level of the bifurcation without filling defects. The cholangiogram catheter was removed and the cystic duct clipped below the incision in the cystic duct. The cystic duct was divided between these clips and the previously placed clip. The cystic artery was clipped and divided between the previously placed clips. The gallbladder was then dissected free of the gallbladder bed using hook electrocautery. Prior to complete removal of the gallbladder from the gallbladder bed, the area of the cystic duct and artery stumps was examined. The clips were in good position completely across these structures and there was no bleeding and no leakage of bile. The gallbladder was then placed into an EndoCatch bag and drawn out through the epigastric incision. The epigastric trocar was replaced and the operative site easily irrigated to clear. There was no significant bleeding or spillage of bile. The epigastric trocar was removed and the fascia closed under direct laparoscopic vision with a 0 Vicryl suture on a GraNee needle in a figure -of-eight manner with excellent technical result. The right upper quadrant and right lateral abdominal trocars were removed and hemostasis verified. Carbon dioxide gas was allowed to desufflate through the umbilical trocar which was then removed. The skin incisions were closed with 4-0 subcuticular Monocryl sutures and Dermabond dressings were placed. The patient was extubated and taken to the recovery room in good condition. There were no complications. ESTIMATED BLOOD LOSS: Minimal. SPECIMEN : Gallbladder and contents.
== END 2017-11-08 16:44 | disposition home or self-care (01) | DRG 853 ==
LOC: ERS 12:21 → CCU 13:00 → 2NO 11-01 18:41
PROVIDERS: ADMIT Family Medicine; ATTEND Family Medicine
PROC: 06HM33Z Insertion of Infusion Device into Right Femoral Vein, Percutaneous Approach (ICD-10-PCS; 2017-10-30)
PROC: B54BZZA Ultrasonography of Right Lower Extremity Veins, Guidance (ICD-10-PCS; 2017-10-30)
PROC: 5A1D70Z Performance of Urinary Filtration, Intermittent, Less than 6 Hours Per Day (ICD-10-PCS; 2017-10-30)
PROC: 5A1D70Z Performance of Urinary Filtration, Intermittent, Less than 6 Hours Per Day (ICD-10-PCS; 2017-10-31)
PROC: 5A1D70Z Performance of Urinary Filtration, Intermittent, Less than 6 Hours Per Day (ICD-10-PCS; 2017-11-03)
PROC: 0FT44ZZ Resection of Gallbladder, Percutaneous Endoscopic Approach (ICD-10-PCS; principal; 2017-11-04)
PROC: 0JH63XZ Insertion of Tunneled Vascular Access Device into Chest Subcutaneous Tissue and Fascia, Percutaneous Approach (ICD-10-PCS; 2017-11-04)
PROC: BF101ZZ Fluoroscopy of Bile Ducts using Low Osmolar Contrast (ICD-10-PCS; 2017-11-04)
PROC: 05HM33Z Insertion of Infusion Device into Right Internal Jugular Vein, Percutaneous Approach (ICD-10-PCS; 2017-11-04)
PROC: B543ZZA Ultrasonography of Right Jugular Veins, Guidance (ICD-10-PCS; 2017-11-04)
PROC: B5131ZA Fluoroscopy of Right Jugular Veins using Low Osmolar Contrast, Guidance (ICD-10-PCS; 2017-11-04)
DX: A41.9 Sepsis, unspecified organism (principal); G92 Toxic encephalopathy; N17.0 Acute kidney failure with tubular necrosis; M62.82 Rhabdomyolysis; E87.2 Acidosis; K81.0 Acute cholecystitis; N30.00 Acute cystitis without hematuria; I12.0 Hypertensive chronic kidney disease with stage 5 chronic kidney disease or end stage renal disease; K92.1 Melena; N18.5 Chronic kidney disease, stage 5; F10.10 Alcohol abuse, uncomplicated; F19.10 Other psychoactive substance abuse, uncomplicated; K21.9 Gastro-esophageal reflux disease without esophagitis; E86.9 Volume depletion, unspecified; R94.5 Abnormal results of liver function studies; D72.829 Elevated white blood cell count, unspecified; D69.6 Thrombocytopenia, unspecified; E87.5 Hyperkalemia; D63.8 Anemia in other chronic diseases classified elsewhere; G89.29 Other chronic pain; R19.7 Diarrhea, unspecified; L89.159 Pressure ulcer of sacral region, unspecified stage; B96.20 Unspecified Escherichia coli [E. coli] as the cause of diseases classified elsewhere; B18.2 Chronic viral hepatitis C; E86.0 Dehydration; R13.10 Dysphagia, unspecified; R00.1 Bradycardia, unspecified; E87.6 Hypokalemia
CPT/HCPCS: 36415; 36416; 47532; 70450; 71045; 74220; 76705; 80048; 80053; 80076; 80306; 80307; 82140; 82274; 82330; 82550; 82553; 82607; 82747; 82803; 83605; 83630; 83735; 84100; 84145; 84443; 84484; 85025; 85610; 85730; 86580; 86704; 86706; 86780; 86803; 87045; 87046; 87077; 87081; 87086; 87186; 87324; 87340; 87389; 87449; 87522; 87899; 88304; 90935; 93005; 93010; 93306; 93970; 96365; 96375; A4216; C1752; C1769; C9113; G0257; G0365; G8996-GN-CJ; G8997-GN-CI; J0131; J0696; J1580; J1630; J1642; J1644; J2001; J2060; J2405; J2543; J2704; J3010; J3370; J3411; J7050; Q9961; S0028